=== PATIENT | female | born 1960 | race Caucasian/White ===

== ENCOUNTER 2017-03-03 12:41 | Emergency (ER) | payer MEDICARE, MEDICAID ==
--- NOTE | 2017-03-03 13:15 | EDM.PDOC ---
ED HPI Behavioral Health - General Chief Complaint: Behavioral/Psych Stated Complaint: mental health eval Time Seen by Provider: 03/03/17 12:55 Source of Information: Reports: Patient, Police Exam Limitations: Reports: No limitations - History of Present Illness INITIAL COMMENTS - FREE TEXT/NARRATIVE: Patient presents via the police department for mental health evaluation. The police were called to the patient's residence. The patient reported to dispatch that there was a "black kid" in her couch. She had a gun to protect her self. When police arrived she did have a gun on her. She was tearing apart her couch looking for the perpetrator. Patient was disarmed and brought the ER for mental health evaluation. [place] police department to filled out the emergency dention paperwork. Upon my interview the patient is actively hallucinating ER. She states there is a mouse in the trash. She also reports that she has been having bugs crawling in her skin. She states that she's been using name an exacto-blade to extract the bugs. She states it does not hurt crooks there are bugs that have damaged the nerves underneath. She reports that these wounds have been present for years. Patient reports that she had hallucinations last night of cartoons on the king. The patient states that she has been taking her medications. She sees Dr. hammond of [facility]. Last visit was about a month and a half ago. Patient denies any suicidal or homicidal ideation or plan. Patient denies any medical concerns. She states that she is having pain to the right shoulder from being "jerked around" by the police. - Related Data Allergies Allergy/AdvReac Type Severity Reaction Status Date / Time acetaminophen [From Tylenol] Allergy Itching Verified 03/03/17 12:50 adhesive Allergy Rash Verified 03/03/17 12:50 buprenorphine Allergy Itching Verified 03/03/17 12:50 codeine Allergy Itching Verified 03/03/17 12:50 diclofenac Allergy Itching Verified 03/03/17 12:50 latex Allergy Itching Verified 03/03/17 12:50 meloxicam [From Mobic] Allergy Rash Verified 03/03/17 12:50 morphine Allergy Hives Verified 03/03/17 12:50 nabumetone [From Relafen] Allergy Hives Verified 03/03/17 12:50 oxycodone Allergy Itching Verified 03/03/17 12:50 ibuprofen AdvReac Stomach Verified 08/30/15 14:48 Upset Home Medications: Home Meds Levothyroxine 75 mcg PO DAILY 09/29/14 [History] Minocycline [Minocin] 100 mg PO BID 09/29/14 [History] Omeprazole 20 mg PO BID 09/29/14 [History] Venlafaxine [Effexor] 150 mg PO DAILY 02/16/15 [History] Acyclovir 400 mg PO BID 04/15/15 [History] ClonazePAM [KlonoPIN] 2 mg PO BEDTIME 09/19/15 [History] Fluticasone Propionate [Flonase Allergy Relief] 1 spray NASBOTH BID 09/19/15 [ History] Lisinopril/Hydrochlorothiazide [Lisinopril-Hctz 20-12.5 mg Tab] 1 tab PO DAILY 09/19/15 [History] cloNIDine [Catapres] 0.1 mg PO BEDTIME 09/19/15 [History] hydrOXYzine Pamoate [Hydroxyzine Pamoate] 150 mg PO BEDTIME 09/19/15 [History] traZODone 50 - 200 mg PO BEDTIME PRN 09/19/15 [History] Benztropine [Cogentin] 2 mg PO BEDTIME tablet 10/09/15 [Rx] Cyclobenzaprine [Flexeril] 10 mg PO Q8HR PRN #0 tablet 10/09/15 [Rx] Docusate Sodium [Colace] 100 mg PO BID PRN #0 cap 10/09/15 [Rx] Enoxaparin [Lovenox] 40 mg SUBCUT DAILY 30 Days 10/09/15 [Rx] QUEtiapine [SEROquel] 300 mg PO BEDTIME #30 tablet 10/09/15 [Rx] HYDROmorphone HCl [Dilaudid] 1 mg PO Q4H PRN 11/16/15 [History] Mag Hydrox/Al Hydrox/Simeth [Mi Acid Suspension] 15 ml PO DAILY PRN 11/16/15 [ History] Ondansetron [Zofran] 8 mg PO Q8H 11/16/15 [History] hydrOXYzine Pamoate [Vistaril] 25 mg PO DAILY PRN 11/16/15 [History] traZODone 50 mg PO BEDTIME PRN 11/16/15 [History] Right Arm Pain Score (Numeric/FACES): 9 Past Medical History HEENT History: Reports: Impaired vision, Other (see below) Other HEENT History: LEFT EAR HEARING LOSS Cardiovascular History: Reports: Hypertension Other Cardiovascular History: HX OF HYPOTENSION, SINUS BRADYCARDIA Gastrointestinal History: Reports: Chronic constipation, Other (see below) Other Gastrointestinal History: HX OF GASTRIC ULCER, Elevated LFT's and hx polysubstance abuse, PUD Genitourinary History: Reports: Other (see below) Other Genitourinary History: HX OF IMPAIRED RENAL FUNCTION Other OB/BYN History: DENIES HX OF . PT REPORTS SHE IS PERIMENOPAUSAL, SAID SHE HAD GONE 3 MONTHS WITHOUT PERIOD THEN NOW HAS IT. Musculoskeletal History: Reports: Other (see below) Other Musculoskeletal History: CURRENT R WRIST FX, chronic neck pain, femur fracture Neurological History: Reports: Other (see below) Other Neuro History: NECK PAIN, SYNCOPE Psychiatric History: Reports: Addiction, Anxiety, Depression, Hallucinations, Psych Hospitalization(s) Other Psychiatric History: HX OF PERSONALITY DISORDER, HALLUCINATIONS (RECENTLY PSYCH COMMITED DUE TO HALLUCINATIONS AND SELF INFLICTED VIOLENCE - BRUISES, CUTS. SEE PAPERWORK IN [facility] 04/2015 AND PRIOR TO THAT THIS YEAR WAS IN [facility] FOR SUICIDAL IDEATION.) Endocrine/Metabolic History: Reports: Other (see below) Other Endocrine/Metabolic History: HYPOTHYROIDISM Hematologic History: Reports: Anemia, Iron deficiency, Other (see below) Other Hematologic History: Factor IV Dermatologic History: Reports: Other (see below) Other Dermatologic History: HX OF SELF INFLICTED LACERATIONS. - Past Surgical History Musculoskeletal Surgical History: Reports: Other (see below) Other Musculoskeletal Surgeries/Procedures:: right knee replacement 2009 Social & Family History - Tobacco Use Smoking Status *Q: Unknown Ever Smoked Years of Tobacco use: 20 Used Tobacco, but Quit: No Second Hand Smoke Exposure: No - Caffeine Use Caffeine Use: Reports: None - Alcohol Use Days Per Week of Alcohol Use: 5 (chronic alcoholism) Number of Drinks Per Day: 3 Total Drinks Per Week: 15 - Recreational Drug Use Recreational Drug Use: No Drug Use in Last 12 Months: No Recreational Drug Use Frequency: Patient Refuses To Answer - Living Situation & Occupation Living situation: Reports: with family, single 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 Denies: Nausea, Vomiting : Reports: incontinence. Denies: dysuria Musculoskeletal: Reports: back pain (chronic) ED EXAM, BEHAVIORAL HEALTH - Physical Exam Exam: See Below Exam Limited By: No limitations General Appearance: alert, WD/WN, no apparent distress Ears: normal external exam Nose: normal inspection Throat/Mouth: Normal inspection, Normal voice, No airway compromise Neck: normal inspection, supple, non-tender, full range of motion Respiratory/Chest: no respiratory distress, lungs clear, normal breath sounds Cardiovascular: normal peripheral pulses, regular rate, rhythm, no murmur GI/Abdominal: soft, non tender Extremities: normal inspection, normal range of motion, other (tenderness to the right anterior proximal humerus and right trapezius muscle) Neurological: alert Psychiatric: alert, flat affect, visual hallucinations, paranoid thoughts. No: homicidal thoughts, suicidal plan, suicidal thoughts Skin Exam: Warm, Dry, Pallor, Signs of self injury (approximately [id number] wound to the right medial lower leg; approximately [id number] superficial wound to the right medial lower leg; approximately 1.5cm in diameter superficial wound to the left anterio abdomen; approximaltely [id number] wound to the left forearm; 2 superficial, healed wounds approximaltely 2cm in legth to the left forearm) EKG INTERPRETATION EKG Date: 03/03/17 Time: 17:10 Rhythm: NSR Rate (beats/min): 43 [place]: normal P-wave: present QRS: normal ST-T: normal QT: normal EKG Interpretation Comments: sinus bradycardia at [address] segment changes. REviewed by myself and Dr. Worthington. COURSE, BEHAVIORAL HEALTH COMP - Course Vital Signs: Last Vital Signs Temp 35.9 C 03/03/17 12:45 Pulse 46 L 03/03/17 17:35 Resp 16 03/03/17 17:35 BP 107/57 L 03/03/17 17:35 Pulse Ox 99 03/03/17 17:35 Orders, Labs, Meds: Active Orders 24 hr Category Date Time Status EKG 12 Lead [EKG Documentation Completion] [RC] STAT Care 03/03/17 17:01 Active Peripheral IV Care [RC] . DIRECTED Care 03/03/17 15:08 Active Humerus Rt [CR] Stat Exams 03/03/17 14:08 Taken CULTURE ANAEROBIC + SMEAR [RM] Stat Lab 03/03/17 15:10 Received CULTURE URINE [RM] Stat Lab 03/03/17 16:36 Received Sodium Chloride 0.9% [Normal Saline] 500 ml Med 03/03/17 17:29 Active IV .BOLUS Sodium Chloride 0.9% [Saline Flush] Med 03/03/17 15:08 Active 10 ml FLUSH ASDIRECTED PRN Peripheral IV Insertion Adult [OM.PC] Routine Oth 03/03/17 15:07 Ordered Medication Orders Sodium Chloride (Normal Saline) 500 mls @ 999 mls/hr IV .BOLUS ONE Stop: 03/03/17 17:59 Last Admin: 03/03/17 17:25 Dose: 999 mls/hr Sodium Chloride (Saline Flush) 10 ml FLUSH ASDIRECTED PRN PRN Reason: Keep Vein Open Last Admin: 03/03/17 15:47 Dose: 10 ml Laboratory Tests 03/03/17 03/03/17 03/03/17 Range/Units 13:23 13:23 16:10 WBC 11.71 H (3.98-10.04) K/mm3 RBC 3.57 L (3.98-5.22) M/mm3 Hgb 10.5 L (11.2-15.7) gm/L Hct 31.4 L (34.1-44.9) % MCV 88.0 (79.4-94.8) fl MCH 29.4 (25.6-32.2) pg MCHC 33.4 (32.2-35.5) g/dl RDW Std Deviation 49.2 H (36.4-46.3) fL Plt Count 260 (182-369) K/mm3 MPV 10.7 (9.4-12.3) fl Neut % (Auto) 68.3 (34.0-71.1) % Lymph % (Auto) 15.4 L (19.3-51.7) % [place] % (Auto) 13.1 H (4.7-12.5) % Eos % (Auto) 2.5 (0.7-5.8) Baso % (Auto) 0.5 (0.1-1.2) % Neut # (Auto) 8.01 H (1.56-6.13) K/mm3 Lymph # (Auto) 1.80 (1.18-3.74) K/mm3 [place] # (Auto) 1.53 H (0.24-0.36) K/mm3 Eos # (Auto) 0.29 (0.04-0.36) K/mm3 Baso # (Auto) 0.06 (0.01-0.08) K/mm3 Manual Slide Review Abnormal smear Sodium 137 (136-145) mEq/L Potassium 3.5 (3.5-5.1) mEq/L Chloride 104 (98-107) mEq/L Carbon Dioxide 22 (21-32) mEq/L Anion Gap 14.5 (5-15) BUN 10 (7-18) mg/dL Creatinine 1.2 H (0.55-1.02) mg/dL Est Cr Clr Drug Dosing 42.39 mL/min Estimated GFR (MDRD) 47 (>60) mL/min BUN/Creatinine Ratio 8.3 L (14-18) Glucose 99 (74-106) mg/dL Calcium 8.7 (8.5-10.1) mg/dL Magnesium 1.6 L (1.8-2.4) mg/dl Total Bilirubin 0.6 (0.2-1.0) mg/dL AST 93 H (15-37) U/L ALT 48 (14-59) U/L Alkaline Phosphatase 213 H (46-116) U/L C-Reactive Protein 1.7 H* (<1.0) mg/dL Total Protein 5.4 L (6.4-8.2) g/dl Albumin 2.6 L (3.4-5.0) g/dl Globulin 2.8 gm/dL Albumin/Globulin Ratio 0.9 L (1-2) TSH 3rd Generation 3.650 (0.358-3.74) uIU/mL Urine Color (Yellow) Urine Appearance (Clear) Urine pH (5.0-8.0) Ur Specific [place] (1.005-1.030) Urine Protein (Negative) Urine Glucose (UA) (Negative) Urine Ketones (Negative) Urine Occult Blood (Negative) Urine Nitrite (Negative) Urine Bilirubin (Negative) Urine Urobilinogen (0.2-1.0) Ur Leukocyte Esterase (Negative) Urine RBC (0-5) /hpf Urine WBC (0-5) /hpf Ur Epithelial Cells Ur Squamous Epith Cells (0-5) /hpf Ur Transition Epith Cell (0-5) Urine Bacteria (FEW) /hpf Hyaline Casts (0-5) /lpf Urine Mucus (FEW) /hpf Urine Opiates Screen Presumptive positive H (NEGATIVE) Ur Buprenorphine Scrn Negative (NEGATIVE) Ur Oxycodone Screen Negative (NEGATIVE) Urine Methadone Screen Negative (NEGATIVE) Ur Propoxyphene Screen Negative (NEGATIVE) Ur Barbiturates Screen Negative (NEGATIVE) Ur Tricyclics Screen Negative (NEGATIVE) Ur Phencyclidine Scrn Negative (NEGATIVE) Ur Amphetamine Screen Negative (NEGATIVE) U Methamphetamines Scrn Negative (NEGATIVE) U Benzodiazepines Scrn Negative (NEGATIVE) U Cocaine Metab Screen Negative (NEGATIVE) U Marijuana (THC) Screen Negative (NEGATIVE) Ethyl Alcohol 0.00 (0.00) gm% 03/03/17 Range/Units 16:10 WBC (3.98-10.04) K/mm3 RBC (3.98-5.22) M/mm3 Hgb (11.2-15.7) gm/L Hct (34.1-44.9) % MCV (79.4-94.8) fl MCH (25.6-32.2) pg MCHC (32.2-35.5) g/dl RDW Std Deviation (36.4-46.3) fL Plt Count (182-369) K/mm3 MPV (9.4-12.3) fl Neut % (Auto) (34.0-71.1) % Lymph % (Auto) (19.3-51.7) % [place] % (Auto) (4.7-12.5) % Eos % (Auto) (0.7-5.8) Baso % (Auto) (0.1-1.2) % Neut # (Auto) (1.56-6.13) K/mm3 Lymph # (Auto) (1.18-3.74) K/mm3 [place] # (Auto) (0.24-0.36) K/mm3 Eos # (Auto) (0.04-0.36) K/mm3 Baso # (Auto) (0.01-0.08) K/mm3 Manual Slide Review Sodium (136-145) mEq/L Potassium (3.5-5.1) mEq/L Chloride (98-107) mEq/L Carbon Dioxide (21-32) mEq/L Anion Gap (5-15) BUN (7-18) mg/dL Creatinine (0.55-1.02) mg/dL Est Cr Clr Drug Dosing mL/min Estimated GFR (MDRD) (>60) mL/min BUN/Creatinine Ratio (14-18) Glucose (74-106) mg/dL Calcium (8.5-10.1) mg/dL Magnesium (1.8-2.4) mg/dl Total Bilirubin (0.2-1.0) mg/dL AST (15-37) U/L ALT (14-59) U/L Alkaline Phosphatase (46-116) U/L C-Reactive Protein (<1.0) mg/dL Total Protein (6.4-8.2) g/dl Albumin (3.4-5.0) g/dl Globulin gm/dL Albumin/Globulin Ratio (1-2) TSH 3rd Generation (0.358-3.74) uIU/mL Urine Color Yellow (Yellow) Urine Appearance Clear (Clear) Urine pH 6.0 (5.0-8.0) Ur Specific [place] 1.020 (1.005-1.030) Urine Protein Trace H (Negative) Urine Glucose (UA) Negative (Negative) Urine Ketones 1+ H (Negative) Urine Occult Blood Negative (Negative) Urine Nitrite Negative (Negative) Urine Bilirubin 1+ H (Negative) Urine Urobilinogen 0.2 (0.2-1.0) Ur Leukocyte Esterase Negative (Negative) Urine RBC 0-5 (0-5) /hpf Urine WBC 0-5 (0-5) /hpf Ur Epithelial Cells Not Reportable Ur Squamous Epith Cells 0-5 (0-5) /hpf Ur Transition Epith Cell 0-5 (0-5) Urine Bacteria Moderate H (FEW) /hpf Hyaline Casts 0-5 (0-5) /lpf Urine Mucus Moderate H (FEW) /hpf Urine Opiates Screen (NEGATIVE) Ur Buprenorphine Scrn (NEGATIVE) Ur Oxycodone Screen (NEGATIVE) Urine Methadone Screen (NEGATIVE) Ur Propoxyphene Screen (NEGATIVE) Ur Barbiturates Screen (NEGATIVE) Ur Tricyclics Screen (NEGATIVE) Ur Phencyclidine Scrn (NEGATIVE) Ur Amphetamine Screen (NEGATIVE) U Methamphetamines Scrn (NEGATIVE) U Benzodiazepines Scrn (NEGATIVE) U Cocaine Metab Screen (NEGATIVE) U Marijuana (THC) Screen (NEGATIVE) Ethyl Alcohol (0.00) gm% Medications Generic Name Dose Route Start Last Admin Trade Name Freq PRN Reason Stop Dose Admin Sodium Chloride 500 mls @ 999 mls/hr 03/03/17 17:29 03/03/17 17:25 Normal Saline IV 03/03/17 17:59 999 mls/hr .BOLUS ONE Administration Sodium Chloride 10 ml 03/03/17 15:08 03/03/17 15:47 Saline Flush FLUSH 10 ml ASDIRECTED PRN Administration Keep Vein Open Discontinued Medications Generic Name Dose Route Start Last Admin Trade Name Freq PRN Reason Stop Dose Admin Sodium Chloride 1,000 mls @ 999 mls/hr 03/03/17 15:08 03/03/17 15:43 Normal Saline IV 03/03/17 16:08 999 mls/hr ONETIME ONE Administration Ketorolac Tromethamine 30 mg 03/03/17 15:55 03/03/17 15:58 Toradol IVPUSH 03/03/17 15:56 30 mg ONETIME ONE Administration Magnesium Oxide 400 mg 03/03/17 15:08 03/03/17 15:58 Magnesium Oxide PO 03/03/17 15:09 400 mg ONETIME ONE Administration Re-Assessment/Re-Exam: 17:00 xray of the right humerus shows no acute fractures or dislocations. Mag was found to be slightly low at 1.6. She was give mag oxide 400mg PO. HGb is 10.5 appears to be chronic UA + for opiates. Patient is currently on hydrocodone for chronic back and shoulder pain. She was given 30mg IV toradol in the ED for pain control. 17:59 EKG shows a sinus bradycardia. Discussed with Dr. Worthington. Miranda she was still able to go to inpatient psych safely. Heart rate at 12:45 was 62 and at 17 :00 was 76. Medical Clearance: 03/03/17 17:[address] Worthington. Patient is cleared from a medical standpoint to go to inpatient psych. Discharge vs Psych Eval/Treatment:: 03/03/17 17:[address] Wyatt, psychiatry at [facility]. Agrees to accept the patient. Asked we obtain a baseline EKG, as they will likely restart her seroquel. Plan will be to transfer by [facility] department to [facility] in [place]. Departure - Departure Time of Disposition: 17:48 Disposition: DC/Tfer to Psych Hosp/Unit 65 Condition: fair Clinical Impression: Hallucinations Forms: ED Department Discharge Additional Instructions: Patient to go by [facility]'s department to [facility] in [place]. Dr. Wyatt accepting. - My Orders Last 24 Hours: My Active Orders 03/03/17 14:08 Humerus Rt [CR] Stat 03/03/17 15:07 Peripheral IV Insertion Adult [OM.PC] Routine 03/03/17 15:08 Peripheral IV Care [RC] . DIRECTED Sodium Chloride 0.9% [Saline Flush] 10 ml FLUSH ASDIRECTED PRN 03/03/17 15:10 CULTURE ANAEROBIC + SMEAR [RM] Stat 03/03/17 16:36 CULTURE URINE [RM] Stat 03/03/17 17:01 EKG 12 Lead [EKG Documentation Completion] [RC] STAT 03/03/17 17:29 Sodium Chloride 0.9% [Normal Saline] 500 ml IV .BOLUS - Assessment/Plan Last 24 Hours: My Active Orders 03/03/17 14:08 Humerus Rt [CR] Stat 03/03/17 15:07 Peripheral IV Insertion Adult [OM.PC] Routine 03/03/17 15:08 Peripheral IV Care [RC] . DIRECTED Sodium Chloride 0.9% [Saline Flush] 10 ml FLUSH ASDIRECTED PRN 03/03/17 15:10 CULTURE ANAEROBIC + SMEAR [RM] Stat 03/03/17 16:36 CULTURE URINE [RM] Stat 03/03/17 17:01 EKG 12 Lead [EKG Documentation Completion] [RC] STAT 03/03/17 17:29 Sodium Chloride 0.9% [Normal Saline] 500 ml IV .BOLUS
[2017-03-03] MEDS ORDERED: Sodium Chloride 0.9% 10 ML Syringe FLUSH PRN (15:08)
[2017-03-03] MEDS ORDERED: Magnesium Oxide 400 MG Tab PO ONE (15:08)
[2017-03-03] MEDS ORDERED: Sodium Chloride 0.9% 1,000 ML IV ONE (15:08)
[2017-03-03] MEDS ORDERED: Ketorolac 30 MG/ML SDV IVPUSH ONE (15:55)
[2017-03-03] MEDS ORDERED: Sodium Chloride 0.9% 500 ML IV ONE (17:29)
[2017-03-03 17:36] VITALS: BP 107/57
--- NOTE | 2017-03-04 06:59 | CR ---
Right humerus: Two views of the right humerus were obtained. Probable chronic rotator cuff tear is noted. Previous right shoulder surgery is seen. No acute fracture or other abnormality is appreciated. Impression: 1. Findings suspicious for chronic rotator cuff tear. 2. Previous surgery with no acute abnormality identified. Diagnostic code #2
== END 2017-03-03 18:10 ==
LOC: JD.ED 12:41
DX: R44.1 Visual hallucinations (principal); E83.42 Hypomagnesemia; G89.29 Other chronic pain; M54.9 Dorsalgia, unspecified; M25.519 Pain in unspecified shoulder; E03.9 Hypothyroidism, unspecified; D50.9 Iron deficiency anemia, unspecified; D68.51 Activated protein C resistance; F32.9 Major depressive disorder, single episode, unspecified; F41.9 Anxiety disorder, unspecified; M54.2 Cervicalgia; H91.92 Unspecified hearing loss, left ear; I10 Essential (primary) hypertension; K59.00 Constipation, unspecified; Z79.899 Other long term (current) drug therapy; Z88.8 Allergy status to other drugs, medicaments and biological substances; Z91.048 Other nonmedicinal substance allergy status
CPT/HCPCS: 36415; 73060; 80053; 80306; 81001; 83735; 84443; 85025; 86140; 87075; 87086; 87205; 93005; 96361; 96374; 99285; A9270; G0480; J1885; J7040; J7050; 87088; 87186; 99284

== ENCOUNTER 2017-03-28 07:22 | Inpatient (IN) | payer MEDICARE, MEDICAID ==
[2017-03-28] MEDS ORDERED: HYDROmorphone 0.5 MG/0.5 ML Syringe IVPUSH ONE ×2 (07:51→08:59)
[2017-03-28] MEDS ORDERED: Sodium Chloride 0.9% 10 ML Syringe FLUSH PRN (07:52)
[2017-03-28] MEDS ORDERED: Sodium Chloride 0.9% 500 ML IV ONE (07:52)
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
[2017-03-28] MEDS ORDERED: hydrOXYzine HCl 25 MG Tab PO PRN ×2 (13:21→18:48)
[2017-03-28] MEDS: Ondansetron 4 MG Tab.DIS PO SCH ×2 (14:18→20:41)
[2017-03-28] MEDS ORDERED: Venlafaxine 37.5 MG Tab PO SCH (15:00)
[2017-03-28] MEDS: Lidocaine 5% 700 MG Patch TOP SCH (16:38)
[2017-03-28] MEDS: Pantoprazole 40 MG Tab.CR PO SCH (16:39)
[2017-03-28] MEDS ORDERED: LORazepam 2 MG/ML MDV IVPUSH ONE (17:23)
[2017-03-28] MEDS: Losartan 25 MG Tab PO SCH (20:08)
[2017-03-28] MEDS: Benztropine 1 MG Tab PO SCH (20:15)
[2017-03-28] MEDS: Venlafaxine 75 MG Cap.ER PO SCH (20:15)
[2017-03-28] MEDS: Diazepam 5 MG Tab PO SCH (20:16)
[2017-03-28] MEDS: Mirtazapine 15 MG Tab PO SCH (20:16)
[2017-03-28] MEDS: Acyclovir 200 MG Cap PO SCH (20:21)
[2017-03-28] MEDS: Acetaminophen/HYDROcodone 325-10 MG Tab PO PRN (20:47)
[2017-03-28] MEDS ORDERED: MINOCYCLINE 100 MG PO SCH (21:00)
[2017-03-28] MEDS ORDERED: hydrOXYzine HCl 50 MG Tab PO SCH ×2 (21:00)
[2017-03-28] MEDS ORDERED: ClonazePAM 1 MG Tab PO SCH (21:00)
[2017-03-28] MEDS ORDERED: cloNIDine 0.1 MG Tab PO SCH (21:00)
[2017-03-28] MEDS: LOXAPINE 10 MG PO SCH (21:00)
[2017-03-28] MEDS ORDERED: LOXAPINE 50 MG PO SCH (21:00)
[2017-03-29] MEDS: Ondansetron 4 MG Tab.DIS PO SCH ×3 (04:57→22:59)
[2017-03-29] MEDS: Acetaminophen/HYDROcodone 325-10 MG Tab PO PRN ×3 (04:59→19:01)
[2017-03-29] MEDS: Levothyroxine 88 MCG Tab PO SCH (05:00)
[2017-03-29] MEDS: Pantoprazole 40 MG Tab.CR PO SCH ×2 (05:00→16:45)
[2017-03-29] MEDS: Propranolol 60 MG Cap.ER PO SCH (08:43)
[2017-03-29] MEDS: Mirtazapine 15 MG Tab PO SCH ×3 (08:44→22:59)
[2017-03-29] MEDS: Acyclovir 200 MG Cap PO SCH ×2 (08:44→22:59)
[2017-03-29] MEDS: Diazepam 5 MG Tab PO SCH ×3 (08:44→22:59)
[2017-03-29] MEDS ORDERED: Lisinopril 20 MG Tab PO SCH (09:00)
[2017-03-29] MEDS ORDERED: Hydrochlorothiazide 12.5 MG Cap PO SCH (09:00)
[2017-03-29] MEDS ORDERED: Venlafaxine 75 MG Cap.ER PO SCH (09:00)
[2017-03-29] MEDS ORDERED: Levothyroxine 75 MCG Tab PO SCH (09:00)
[2017-03-29] MEDS ORDERED: LOXAPINE 10 MG PO SCH (09:15)
[2017-03-29] MEDS ORDERED: Diazepam 5 MG Tab PO SCH (09:15)
[2017-03-29] MEDS: hydrOXYzine HCl 25 MG Tab PO PRN (10:58)
[2017-03-29] MEDS: LOXAPINE 10 MG PO SCH ×2 (10:59→23:07)
--- NOTE | 2017-03-29 16:41 | PCM.PN ---
- General Info Date of Service: 03/29/17 Functional Status: Reports: pain controlled (no, has RUE pain and leg pain), ambulating - Review of Systems General: Reports: No Symptoms HEENT: Reports: no symptoms Pulmonary: Reports: no symptoms Cardiovascular: Reports: No Symptoms Gastrointestinal: Reports: No symptoms Genitourinary: Reports: no symptoms Musculoskeletal: Reports: no symptoms Skin: Reports: no symptoms Neurological: Reports: No Symptoms Psychiatric: Reports: no symptoms - Patient Data Vitals - most recent: Last Vital Signs Temp 36.2 C 03/29/17 15:56 Pulse 72 03/29/17 15:56 Resp 16 03/29/17 15:56 BP 158/89 H 03/29/17 15:56 Pulse Ox 100 03/29/17 15:56 Weight - most recent: 75.296 kg I&O - last 24 hours: Intake & Output 03/29/17 03/29/17 03/29/17 06:59 14:59 22:59 Intake Total 550 360 Output Total 950 600 Balance -400 -240 Lab Results last 24 hrs: Laboratory Results - last 24 hr 03/28/17 03/29/17 Range/Units 15:45 04:40 Sodium 144 (136-145) mEq/L Potassium 3.9 (3.5-5.1) mEq/L Chloride 111 H (98-107) mEq/L Carbon Dioxide 24 (21-32) mEq/L Anion Gap 12.9 (5-15) BUN 14 (7-18) mg/dL Creatinine 0.9 (0.55-1.02) mg/dL Est Cr Clr Drug Dosing 55.86 mL/min Estimated GFR (MDRD) > 60 (>60) mL/min BUN/Creatinine Ratio 15.6 (14-18) Glucose 92 (74-106) mg/dL Calcium 8.4 L (8.5-10.1) mg/dL MRSA (PCR) Negative Med Orders - Current: Current Medications Hydrocodone Bitart/Acetaminophen ([place] 325-10 Mg) 1 tab PO Q6H PRN PRN Reason: Pain Last Admin: 03/29/17 10:59 Dose: 1 tab Acyclovir (Zovirax) 400 mg PO BID [facility] Last Admin: 03/29/17 08:44 Dose: 400 mg Benztropine Mesylate (Cogentin) 2 mg PO BEDTIME [facility] Last Admin: 03/28/17 20:15 Dose: 2 mg Diazepam (Valium.) 20 mg PO BEDTIME [facility] Last Admin: 03/28/17 20:16 Dose: 20 mg Diazepam (Valium.) 5 mg PO BID@0900,1500 [facility] Last Admin: 03/29/17 14:52 Dose: 5 mg Hydroxyzine HCl (Atarax) 25 mg PO Q6H PRN PRN Reason: Itching Last Admin: 03/29/17 10:58 Dose: 25 mg Levothyroxine Sodium (Synthroid) 88 mcg PO ACBREAKFAST [facility] Last Admin: 03/29/17 05:00 Dose: 88 mcg Lidocaine (Lidoderm 5%) 700 mg TOP Q24H [facility] Last Admin: 03/28/17 16:38 Dose: 700 mg Losartan Potassium (Cozaar) 50 mg PO QPM [facility] Last Admin: 03/28/17 20:08 Dose: 50 mg Mirtazapine (Remeron) 15 mg PO TID [facility] Last Admin: 03/29/17 14:52 Dose: 15 mg Miscellaneous Information (Remove Patch) 1 ea TRDERM Q24H [facility] Last Admin: 03/29/17 04:57 Dose: 1 ea Non-Formulary Medication (Loxapine) 10 mg PO BID [facility] Last Admin: 03/29/17 10:59 Dose: Not Given Ondansetron HCl (Zofran Odt) 8 mg PO Q8H [facility] Last Admin: 03/29/17 13:17 Dose: 8 mg Pantoprazole Sodium (Protonix) 40 mg PO BIDAC [facility] Last Admin: 03/29/17 05:00 Dose: 40 mg Propranolol HCl (Inderal La) 60 mg PO QAM [facility] Last Admin: 03/29/17 08:43 Dose: 60 mg Sodium Chloride (Saline Flush) 10 ml FLUSH ASDIRECTED PRN PRN Reason: Keep Vein Open Last Admin: 03/28/17 08:20 Dose: 10 ml Venlafaxine HCl (Effexor Xr) 150 mg PO DAILY [facility] Last Admin: 03/29/17 08:43 Dose: 150 mg Venlafaxine HCl (Effexor Xr) 75 mg PO QPM [facility] Last Admin: 03/28/17 20:15 Dose: 75 mg Discontinued Medications Clonazepam (Klonopin) 2 mg PO BEDTIME [facility] Clonidine HCl (Catapres) 0.1 mg PO BEDTIME [facility] Diazepam (Valium.) 5 mg PO 0915 [facility] Hydrochlorothiazide (Hydrochlorothiazide) 12.5 mg PO DAILY [facility] Hydromorphone HCl (Dilaudid) 0.5 mg IVPUSH ONETIME ONE Stop: 03/28/17 07:52 Last Admin: 03/28/17 08:28 Dose: 0.5 mg Hydromorphone HCl (Dilaudid) 0.5 mg IVPUSH ONETIME ONE Stop: 03/28/17 09:00 Last Admin: 03/28/17 09:09 Dose: 0.5 mg Hydroxyzine HCl (Atarax) 25 mg PO DAILY PRN PRN Reason: Anxiety Hydroxyzine HCl (Atarax) 150 mg PO BEDTIME [facility] Hydroxyzine HCl (Atarax) 100 mg PO BEDTIME [facility] Hydroxyzine HCl (Atarax) 25 mg PO Q6H PRN PRN Reason: Itching Sodium Chloride (Normal Saline) 500 mls @ 999 mls/hr IV .BOLUS ONE Stop: 03/28/17 08:22 Last Admin: 03/28/17 08:29 Dose: 999 mls/hr Levothyroxine Sodium (Levothyroxine) 75 mcg PO DAILY [facility] Lisinopril (Prinivil) 20 mg PO DAILY [facility] Lorazepam (Ativan) 2 mg IVPUSH ONETIME ONE Stop: 03/28/17 17:24 Last Admin: 03/28/17 17:33 Dose: 2 mg Non-Formulary Medication (Minocycline) 100 mg PO BID [facility] Non-Formulary Medication (Loxapine) 50 mg PO BEDTIME [facility] Non-Formulary Medication (Loxapine) 10 mg PO 0915 [facility] Venlafaxine HCl (Effexor) 75 mg PO TID [facility] Last Admin: 03/28/17 14:18 Dose: 75 mg - Exam Quality Assessment: DVT prophylaxis General: alert, oriented, no acute distress HEENT: Pupils equal, Pupils reactive, EOMI Neck: supple, trachea midline Lungs: Normal respiratory effort Cardiovascular: Regular Rate Abdomen: bowel sounds present, soft, no tenderness, no distension (Female) Exam: Deferred Back Exam: normal inspection Extremities: normal pulses Skin: warm Neurological: no new focal deficit Psy/Mental Status: alert, anxious, depressed - Problem List & Annotations (1) Difficulty walking SNOMED Code(s): 253811926 Code(s): R26.2 - DIFFICULTY IN WALKING, NOT ELSEWHERE CLASSIFIED Status: Acute Current Visit: Yes (2) Low back pain SNOMED Code(s): 134243355 Code(s): M54.5 - LOW BACK PAIN Status: Acute Current Visit: Yes Qualifiers: Chronicity: acute Back pain laterality: bilateral Sciatica presence: without sciatica Qualified Code(s): M54.5 - Low back pain (3) Closed head injury without concussion SNOMED Code(s): 06452898 Code(s): S09.90XA - UNSPECIFIED INJURY OF HEAD, INITIAL ENCOUNTER Status: Acute Current Visit: No Qualifiers: Encounter type: initial encounter Qualified Code(s): S09.90XA - Unspecified injury of head, initial encounter - Problem List Review Problem List Initiated/Reviewed/Updated: Yes - My Orders Last 24 Hours: My Active Orders 03/28/17 16:00 Pantoprazole [ProTONIX] 40 mg PO BIDAC 03/28/17 17:00 Lidocaine 5% [Lidoderm 5%] 700 mg TOP Q24H 03/28/17 18:48 hydrOXYzine HCl [Atarax] 25 mg PO Q6H PRN 03/28/17 18:51 Notify Provider Consults [RC] ASDIRECTED 03/28/17 18:58 Acetaminophen/HYDROcodone [[place] 325-10 MG] 1 tab PO Q6H PRN 03/28/17 19:00 Losartan [Cozaar] 50 mg PO QPM Venlafaxine [Effexor XR] 75 mg PO QPM 03/28/17 21:00 Acyclovir [Zovirax] 400 mg PO BID Benztropine [Cogentin] 2 mg PO BEDTIME Diazepam [Valium] 20 mg PO BEDTIME Loxapine 10 mg PO BID Mirtazapine [Remeron] 15 mg PO TID 03/28/17 Dinner Heart Healthy Diet [DIET] 03/29/17 05:00 Remove Patch 1 ea TRDERM Q24H 03/29/17 06:00 Levothyroxine [Synthroid] 88 mcg PO ACBREAKFAST 03/29/17 08:00 Propranolol [Inderal LA] 60 mg PO QAM 03/29/17 09:00 Diazepam [Valium] 5 mg PO BID@0900,1500 Venlafaxine [Effexor XR] 150 mg PO DAILY 03/30/17 05:00 BMP [BASIC METABOLIC PANEL,BMP] [CHEM] DAILY CBC WITH AUTO DIFF [HEME] DAILY 03/30/17 08:00 EKG 12 Lead [EKG Documentation Completion] [RC] ROUTINE Consult to Cd Reactor Operator Head [CONS] Routine 03/30/17 09:00 Consult to Occupational Therapy [OT Evaluation and Treatment] [CONS] Routine Consult to Physical Therapy [PT Evaluation and Treatment] [CONS] Routine Consult to Physician [CONS] Routine 03/31/17 05:00 BMP [BASIC METABOLIC PANEL,BMP] [CHEM] DAILY CBC WITH AUTO DIFF [HEME] DAILY 04/01/17 05:00 BMP [BASIC METABOLIC PANEL,BMP] [CHEM] DAILY CBC WITH AUTO DIFF [HEME] DAILY 04/02/17 05:00 CBC WITH AUTO DIFF [HEME] DAILY - Plan Plan:: Impression: SNF placement unable to take care of herself Chronic lower back pain Right UE pain RLE pain Multiple drug "allergies" Chronic History of DVT PUD CKD Anxiety Depression Personalty Disorder Hypothyroidism Plan: Continue home meds Discuss right shoulder with ortho Continue heating pad Daily Labs Consult PT/OT/SW DVT/GI prophylaxis
[2017-03-29] MEDS: Lidocaine 5% 700 MG Patch TOP SCH (16:45)
[2017-03-29] MEDS: Venlafaxine 75 MG Cap.ER PO SCH (18:07)
[2017-03-29] MEDS: Losartan 25 MG Tab PO SCH (18:07)
[2017-03-29] MEDS: Benztropine 1 MG Tab PO SCH (22:59)
[2017-03-30] MEDS: Acetaminophen/HYDROcodone 325-10 MG Tab PO PRN ×4 (02:20→20:33)
[2017-03-30] MEDS: Levothyroxine 88 MCG Tab PO SCH (06:04)
[2017-03-30] MEDS: Ondansetron 4 MG Tab.DIS PO SCH ×3 (06:04→20:33)
[2017-03-30] MEDS: Pantoprazole 40 MG Tab.CR PO SCH ×2 (06:04→15:10)
[2017-03-30] MEDS: Venlafaxine 75 MG Cap.ER PO SCH (08:47)
[2017-03-30] MEDS: Acyclovir 200 MG Cap PO SCH ×2 (08:48→20:33)
[2017-03-30] MEDS: Diazepam 5 MG Tab PO SCH ×3 (08:49→20:32)
[2017-03-30] MEDS: Benztropine 1 MG Tab PO SCH ×2 (08:49→20:31)
[2017-03-30] MEDS: Propranolol 60 MG Cap.ER PO SCH (08:49)
[2017-03-30] MEDS: LOXAPINE 10 MG PO SCH ×2 (08:51→20:32)
--- NOTE | 2017-03-30 09:07 | PCM.PN ---
- General Info Date of Service: 03/30/17 Functional Status: Reports: pain controlled, tolerating diet, ambulating, urinating - Review of Systems General: Reports: No Symptoms HEENT: Reports: no symptoms Pulmonary: Reports: no symptoms Cardiovascular: Reports: No Symptoms Gastrointestinal: Reports: No symptoms Genitourinary: Reports: no symptoms Musculoskeletal: Reports: shoulder pain (right), leg pain (right) Skin: Reports: no symptoms Neurological: Reports: No Symptoms Psychiatric: Reports: no symptoms - Patient Data Vitals - most recent: Last Vital Signs Temp 36.4 C 03/30/17 08:01 Pulse 66 03/30/17 08:01 Resp 16 03/30/17 08:01 BP 139/70 03/30/17 04:15 Pulse Ox 100 03/30/17 08:01 Weight - most recent: 74.389 kg I&O - last 24 hours: Intake & Output 03/29/17 03/30/17 03/30/17 22:59 06:59 14:59 Intake Total 720 400 Output Total 200 Balance 720 200 Lab Results last 24 hrs: Laboratory Results - last 24 hr 03/30/17 03/30/17 Range/Units 04:05 04:25 WBC 9.24 (3.98-10.04) K/mm3 RBC 4.03 (3.98-5.22) M/mm3 Hgb 12.2 (11.2-15.7) gm/L Hct 37.6 (34.1-44.9) % MCV 93.3 (79.4-94.8) fl MCH 30.3 (25.6-32.2) pg MCHC 32.4 (32.2-35.5) g/dl RDW Std Deviation 54.0 H (36.4-46.3) fL Plt Count 340 (182-369) K/mm3 MPV 9.9 (9.4-12.3) fl Neut % (Auto) 52.0 (34.0-71.1) % Lymph % (Auto) 31.1 (19.3-51.7) % [place] % (Auto) 14.3 H (4.7-12.5) % Eos % (Auto) 1.5 (0.7-5.8) Baso % (Auto) 0.5 (0.1-1.2) % Neut # (Auto) 4.80 (1.56-6.13) K/mm3 Lymph # (Auto) 2.87 (1.18-3.74) K/mm3 [place] # (Auto) 1.32 H (0.24-0.36) K/mm3 Eos # (Auto) 0.14 (0.04-0.36) K/mm3 Baso # (Auto) 0.05 (0.01-0.08) K/mm3 Sodium 144 (136-145) mEq/L Potassium 4.1 (3.5-5.1) mEq/L Chloride 108 H (98-107) mEq/L Carbon Dioxide 28 (21-32) mEq/L Anion Gap 12.1 (5-15) BUN 16 (7-18) mg/dL Creatinine 1.0 (0.55-1.02) mg/dL Est Cr Clr Drug Dosing 50.27 mL/min Estimated GFR (MDRD) 58 (>60) mL/min BUN/Creatinine Ratio 16.0 (14-18) Glucose 98 (74-106) mg/dL Calcium 9.0 (8.5-10.1) mg/dL Med Orders - Current: Current Medications Hydrocodone Bitart/Acetaminophen ([place] 325-10 Mg) 1 tab PO Q6H PRN PRN Reason: Pain Last Admin: 03/30/17 08:47 Dose: 1 tab Acyclovir (Zovirax) 400 mg PO BID [facility] Last Admin: 03/30/17 08:48 Dose: 400 mg Benztropine Mesylate (Cogentin) 2 mg PO BEDTIME [facility] Last Admin: 03/29/17 22:59 Dose: 2 mg Benztropine Mesylate (Cogentin) 1 mg PO DAILY [facility] Last Admin: 03/30/17 08:49 Dose: 1 mg Diazepam (Valium.) 20 mg PO BEDTIME [facility] Last Admin: 03/29/17 22:59 Dose: 20 mg Diazepam (Valium.) 5 mg PO BID@0900,1500 [facility] Last Admin: 03/30/17 08:49 Dose: 5 mg Hydroxyzine HCl (Atarax) 25 mg PO Q6H PRN PRN Reason: Itching Last Admin: 03/29/17 10:58 Dose: 25 mg Levothyroxine Sodium (Synthroid) 88 mcg PO ACBREAKFAST [facility] Last Admin: 03/30/17 06:04 Dose: 88 mcg Lidocaine (Lidoderm 5%) 700 mg TOP Q24H [facility] Last Admin: 03/29/17 16:45 Dose: Not Given Losartan Potassium (Cozaar) 50 mg PO QPM [facility] Last Admin: 03/29/17 18:07 Dose: 50 mg Mirtazapine (Remeron) 45 mg PO BEDTIME [facility] Miscellaneous Information (Remove Patch) 1 ea TRDERM Q24H [facility] Last Admin: 03/30/17 06:21 Dose: Not Given Non-Formulary Medication (Loxapine) 10 mg PO BID [facility] Last Admin: 03/30/17 08:51 Dose: Not Given Ondansetron HCl (Zofran Odt) 8 mg PO Q8H [facility] Last Admin: 03/30/17 06:04 Dose: 8 mg Pantoprazole Sodium (Protonix) 40 mg PO BIDAC [facility] Last Admin: 03/30/17 06:04 Dose: 40 mg Propranolol HCl (Inderal La) 60 mg PO QAM [facility] Last Admin: 03/30/17 08:49 Dose: 60 mg Sodium Chloride (Saline Flush) 10 ml FLUSH ASDIRECTED PRN PRN Reason: Keep Vein Open Last Admin: 03/28/17 08:20 Dose: 10 ml Venlafaxine HCl (Effexor Xr) 225 mg PO DAILY [facility] Last Admin: 03/30/17 08:47 Dose: 225 mg Discontinued Medications Clonazepam (Klonopin) 2 mg PO BEDTIME [facility] Clonidine HCl (Catapres) 0.1 mg PO BEDTIME [facility] Diazepam (Valium.) 5 mg PO 0915 [facility] Hydrochlorothiazide (Hydrochlorothiazide) 12.5 mg PO DAILY [facility] Hydromorphone HCl (Dilaudid) 0.5 mg IVPUSH ONETIME ONE Stop: 03/28/17 07:52 Last Admin: 03/28/17 08:28 Dose: 0.5 mg Hydromorphone HCl (Dilaudid) 0.5 mg IVPUSH ONETIME ONE Stop: 03/28/17 09:00 Last Admin: 03/28/17 09:09 Dose: 0.5 mg Hydroxyzine HCl (Atarax) 25 mg PO DAILY PRN PRN Reason: Anxiety Hydroxyzine HCl (Atarax) 150 mg PO BEDTIME [facility] Hydroxyzine HCl (Atarax) 100 mg PO BEDTIME [facility] Hydroxyzine HCl (Atarax) 25 mg PO Q6H PRN PRN Reason: Itching Sodium Chloride (Normal Saline) 500 mls @ 999 mls/hr IV .BOLUS ONE Stop: 03/28/17 08:22 Last Admin: 03/28/17 08:29 Dose: 999 mls/hr Levothyroxine Sodium (Levothyroxine) 75 mcg PO DAILY [facility] Lisinopril (Prinivil) 20 mg PO DAILY [facility] Lorazepam (Ativan) 2 mg IVPUSH ONETIME ONE Stop: 03/28/17 17:24 Last Admin: 03/28/17 17:33 Dose: 2 mg Mirtazapine (Remeron) 15 mg PO TID [facility] Last Admin: 03/29/17 22:59 Dose: 15 mg Non-Formulary Medication (Minocycline) 100 mg PO BID [facility] Non-Formulary Medication (Loxapine) 50 mg PO BEDTIME [facility] Non-Formulary Medication (Loxapine) 10 mg PO 0915 [facility] Venlafaxine HCl (Effexor) 75 mg PO TID [facility] Last Admin: 03/28/17 14:18 Dose: 75 mg Venlafaxine HCl (Effexor Xr) 150 mg PO DAILY [facility] Last Admin: 03/29/17 08:43 Dose: 150 mg Venlafaxine HCl (Effexor Xr) 75 mg PO QPM [facility] Last Admin: 03/29/17 18:07 Dose: 75 mg - Exam Quality Assessment: DVT prophylaxis General: alert, oriented, cooperative, no acute distress HEENT: Pupils equal, Pupils reactive Neck: supple, trachea midline Lungs: Normal respiratory effort Cardiovascular: Regular Rate, Regular Rhythm Abdomen: bowel sounds present, soft, no tenderness, no distension (Female) Exam: Deferred Back Exam: normal inspection Extremities: normal pulses Skin: warm Neurological: no new focal deficit, normal speech Psy/Mental Status: alert, anxious - Problem List & Annotations (1) Difficulty walking SNOMED Code(s): 147521624 Code(s): R26.2 - DIFFICULTY IN WALKING, NOT ELSEWHERE CLASSIFIED Status: Acute Current Visit: Yes (2) Low back pain SNOMED Code(s): 169369439 Code(s): M54.5 - LOW BACK PAIN Status: Acute Current Visit: Yes Qualifiers: Chronicity: acute Back pain laterality: bilateral Sciatica presence: without sciatica Qualified Code(s): M54.5 - Low back pain (3) Closed head injury without concussion SNOMED Code(s): 90165149 Code(s): S09.90XA - UNSPECIFIED INJURY OF HEAD, INITIAL ENCOUNTER Status: Acute Current Visit: No Qualifiers: Encounter type: initial encounter Qualified Code(s): S09.90XA - Unspecified injury of head, initial encounter - Problem List Review Problem List Initiated/Reviewed/Updated: Yes - My Orders Last 24 Hours: My Active Orders 03/29/17 09:00 Diazepam [Valium] 5 mg PO BID@0900,1500 03/29/17 17:37 BRENNON Hose [Antiembolic Hose] [OM.PC] Routine 03/29/17 17:38 Antiembolic Devices [RC] QSHIFT 03/29/17 18:06 Code Status [Resuscitation Status] Routine 03/29/17 20:23 Heat Therapy [OM.PC] Routine 03/30/17 08:00 EKG 12 Lead [EKG Documentation Completion] [RC] ROUTINE Consult to Guest Relations Representative [CONS] Routine 03/30/17 09:00 Consult to Occupational Therapy [OT Evaluation and Treatment] [CONS] Routine Consult to Physical Therapy [PT Evaluation and Treatment] [CONS] Routine Consult to Physician [CONS] Routine 03/31/17 05:00 BMP [BASIC METABOLIC PANEL,BMP] [CHEM] DAILY CBC WITH AUTO DIFF [HEME] DAILY 04/01/17 05:00 BMP [BASIC METABOLIC PANEL,BMP] [CHEM] DAILY CBC WITH AUTO DIFF [HEME] DAILY 04/02/17 05:00 CBC WITH AUTO DIFF [HEME] DAILY - Plan Plan:: Impression: SNF placement unable to take care of herself Has agreed for placement, prefers [facility] Chronic lower back pain Right UE pain, reverse shoulder TBA for outside facility RLE pain Multiple drug "allergies" Chronic History of DVT PUD CKD Anxiety Depression Personalty Disorder Hypothyroidism Plan: Continue home meds Discuss right shoulder with ortho, procedure TBA per ortho no additional X Rays required. Continue heating pad Daily Labs Consult PT/OT/SW DVT/GI prophylaxis DC pending placement
[2017-03-30] MEDS ORDERED: hydrALAZINE 20 MG/ML SDV IVPUSH PRN (15:59)
[2017-03-30] MEDS: Lidocaine 5% 700 MG Patch TOP SCH (16:40)
[2017-03-30] MEDS: Losartan 25 MG Tab PO SCH (18:17)
[2017-03-30] MEDS: Mirtazapine 30 MG Tab PO SCH (20:32)
--- NOTE | 2017-03-30 23:16 | CONS ---
CONSULTING PHYSICIAN: Hugo Jarquin MD DATE OF CONSULTATION: 03/30/2017 IDENTIFICATION: The patient is a 57-year-old female, who was admitted to the inpatient medical unit at [place], [place] on 03/28/2017. She is seen for psychiatric evaluation per Treatment Team request. CHIEF COMPLAINT: "I thought I had a UTI." HISTORY OF PRESENT ILLNESS: The patient is a 57-year-old female, who reports that she began feeling weak and was having some shakes and thought she might have a urinary tract infection and called 911. She was subsequently seen in the ER and admitted to the inpatient medical unit. She is currently having her UTI addressed as well as some musculoskeletal issues involving possible rotator cuff damage in her right shoulder that may need to be surgically repaired by Orthopedics. She is endorsing some symptoms of anxiety and depression, but states that the anxiety and depression have been better over the past few weeks. Evidently, the patient had to go in to a psychiatric hospital last month in February after "I got psychotic" and some medications that were given to her. The patient is not sure what medications were prescribed to her, but she states that when she was on the inpatient psychiatric unit, they gave her a combination of Remeron and loxapine in addition to her currently prescribed Effexor XR and she states that since that time, she is "not anxious" anymore and her depression is much better. She states "my head is clear and my thoughts are clear" and she does not feel that she needs any new psychiatric medication at the moment. The main issue right now is "I have problems sleeping" and she states that she is "shaking all day long" and attributes this to the new medications. She states that she began shaking after she was started on the medications on the inpatient psychiatric unit, but she does not feel that the shaking this is borne out of anxiety and emphasized again "I am not anxious." She denies that she is suicidal or homicidal. She denies any psychotic, delusional, or paranoid symptoms. She reports a little bit decreased appetite, but she states that she thinks that is because she has been physically ill, but overall she is reporting good energy levels. MEDICATIONS: At time of presentation, 1. Valium 5 mg b.i.d. 2. Effexor XR 150 mg q.a.m. and 75 mg at bedtime. 3. Remeron 15 mg t.i.d. which was started 3 weeks ago. 4. Loxapine 10 mg daily was also which was also started 3 weeks ago. 5. Cogentin 2 mg at bedtime which was started about 3 weeks according to the patient. 6. Atarax 25 mg q.6 hours p.r.n. 7. Lisinopril. ALLERGIES: 1. Acetaminophen. 2. Acetylsalicylic acid. 3. Ibuprofen. 4. Buspirone. 5. Codeine. 6. Oxycodone. 7. Morphine. 8. Meloxicam. 9. Relafen. 10.Diflucan. PAST MEDICAL HISTORY: 1. UTI. 2. Status post gastric bypass surgery. 3. Right shoulder injury involving possible rotator cuff joint damage. 4. Status post right wrist surgery. 5. Status post right knee replacement. 6. Status post C4, C6 surgery. 7. Hypertension. REVIEW OF SYSTEMS: Aside from cardiovascular, genitourinary, GI and musculoskeletal, all other major organ systems are negative at this point in time for acute difficulties, and complications. FAMILY PSYCHIATRIC AND CD HISTORY: Significant for depression in family on both sides according to the patient. Past psychiatric and CD history, the patient reports one psychiatric hospitalization in February 2017. Denies any chemical dependency treatment. She chews tobacco 1 pouch per day per patient report. Denies any previous suicide attempts, self-injurious behaviors, or eating disorder history. Past psychiatric diagnosis per staff reports, personality disorder, and psychosis. Primary outpatient psychiatrist was Dr. Barnhart according to the patient, out of [place]. SOCIAL HISTORY: The patient was born and raised in [place], [place]. Highest level of education is that she has a bachelor's in criminal justice. 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 Not involved in any current relationships. Has no biological children. She is currently living in [place] by herself. She has been on disability for about the past year and a half for her physical health issues. Not reporting any prior service or any current legal difficulties. She is raised [employer]ism. She enjoys photography, paining, drawing, hunting and fishing. MENTAL STATUS EXAM: The patient is a 57-year-old, white female, no apparent distress. Speech is of regular rate and rhythm. The patient is cognitively oriented. Psychomotor activity is within normal limits. There are no abnormal motor movements or tics observed. Gait and station are not observed. This patient is bedbound for the interview. Mood is good, affect cooperative overall for the purposes of the inpatient psychiatric consult. There is no behavioral or stated evidence of acute suicidal or homicidal ideation or acute psychotic delusional paranoid symptoms. Thought processes are organized. There are no manic symptoms, loose associations evident. Judgment and insight appear unimpaired at this point in time. Motivation for help appears fair to good. VITAL SIGNS: 139/70, 65, 16, and 97.3 degrees. IMPRESSION: [place] I: 1. Depression, NOS F32 0.9. 2. Past history of psychosis NOS resolved, F29. 3. Past history of possible major depressive disorder. 4. Past history of anxiety disorder, NOS. Currently resolved, F41.9. [place] II: 1. None. [place] III: 1. Urinary tract infection. 2. Possible right rotator cuff injury. 3. Status post gastric bypass. 4. History of hypertension. 5. Status post C4 to C6 surgery. 6. Status post right wrist surgery. 7. Status post right knee replacement. [place] IV: Severe. [place] V: 65. PLAN: 1. Recommend increasing the patient's Cogentin from 2 mg at bedtime to 1 mg q.a.m. 2 mg at bedtime to help reduce symptoms of EPSE and akathisia that may be being caused by the loxapine. 2. Continue Remeron but change dosing time of 15 mg t.i.d. to 45 mg at bedtime. 3. Continue Effexor but change Effexor XR dosing time from 150 mg q.a.m. 75 mg at bedtime to 225 mg q.a.m. also to help possibly reduce the EPSE and akathisia. 4. Continue loxapine 10 mg daily. 5. Continue Atarax 25 mg q.6 hours p.r.n. 6. Other medications as dosed and prescribed by the patient's primary medical treatment team. 7. Also continue Valium 5 mg b.i.d. and 20 mg at bedtime for anxiety reduction per treatment team discretion. 8. Pastoral guidance. 9. Recommend that when patient is medically stabilized and discharged back to community that she follow up with outpatient psychiatry. 10.We will continue to follow up with the patient on as needed basis while she remains on the inpatient medical unit. 11.We will follow up with the patient sooner if any complications in the interim. 12.Crisis plan is in place. JENNA /[id number]
[2017-03-31] MEDS: Acetaminophen/HYDROcodone 325-10 MG Tab PO PRN ×3 (03:03→18:18)
[2017-03-31] MEDS: Levothyroxine 88 MCG Tab PO SCH (06:24)
[2017-03-31] MEDS: Pantoprazole 40 MG Tab.CR PO SCH ×2 (06:24→15:00)
[2017-03-31] MEDS: Ondansetron 4 MG Tab.DIS PO SCH ×3 (06:24→21:05)
[2017-03-31] MEDS: Propranolol 60 MG Cap.ER PO SCH (09:06)
[2017-03-31] MEDS: Diazepam 5 MG Tab PO SCH ×3 (09:06→21:05)
[2017-03-31] MEDS: Benztropine 1 MG Tab PO SCH ×2 (09:06→21:06)
[2017-03-31] MEDS: Acyclovir 200 MG Cap PO SCH ×2 (09:07→21:05)
[2017-03-31] MEDS: Venlafaxine 75 MG Cap.ER PO SCH (09:07)
[2017-03-31] MEDS: LOXAPINE 10 MG PO SCH ×2 (09:09→21:06)
--- NOTE | 2017-03-31 09:40 | PCM.PN ---
- General Info Date of Service: 03/31/17 Functional Status: Reports: tolerating diet, ambulating (walker), urinating - Review of Systems General: Reports: No Symptoms HEENT: Reports: no symptoms Pulmonary: Reports: no symptoms Cardiovascular: Reports: No Symptoms Gastrointestinal: Reports: No symptoms Genitourinary: Reports: no symptoms Musculoskeletal: Reports: shoulder pain (right) Skin: Reports: no symptoms Neurological: Reports: No Symptoms Psychiatric: Reports: no symptoms - Patient Data Vitals - most recent: Last Vital Signs Temp 36.4 C 03/31/17 05:56 Pulse 110 H 03/31/17 08:13 Resp 20 03/31/17 08:12 BP 146/99 H 03/31/17 08:13 Pulse Ox 99 03/31/17 08:13 Weight - most recent: 74.435 kg I&O - last 24 hours: Intake & Output 03/30/17 03/31/17 03/31/17 22:59 06:59 14:59 Intake Total 1330 100 Output Total 1000 1800 Balance 330 -1700 Lab Results last 24 hrs: Laboratory Results - last 24 hr 03/31/17 03/31/17 Range/Units 04:26 04:26 WBC 8.27 (3.98-10.04) K/mm3 RBC 3.93 L (3.98-5.22) M/mm3 Hgb 11.9 (11.2-15.7) gm/L Hct 36.6 (34.1-44.9) % MCV 93.1 (79.4-94.8) fl MCH 30.3 (25.6-32.2) pg MCHC 32.5 (32.2-35.5) g/dl RDW Std Deviation 54.3 H (36.4-46.3) fL Plt Count 329 (182-369) K/mm3 MPV 9.9 (9.4-12.3) fl Neut % (Auto) 51.7 (34.0-71.1) % Lymph % (Auto) 32.8 (19.3-51.7) % [place] % (Auto) 11.5 (4.7-12.5) % Eos % (Auto) 3.0 (0.7-5.8) Baso % (Auto) 0.5 (0.1-1.2) % Neut # (Auto) 4.28 (1.56-6.13) K/mm3 Lymph # (Auto) 2.71 (1.18-3.74) K/mm3 [place] # (Auto) 0.95 H (0.24-0.36) K/mm3 Eos # (Auto) 0.25 (0.04-0.36) K/mm3 Baso # (Auto) 0.04 (0.01-0.08) K/mm3 Sodium 143 (136-145) mEq/L Potassium 4.0 (3.5-5.1) mEq/L Chloride 109 H (98-107) mEq/L Carbon Dioxide 24 (21-32) mEq/L Anion Gap 14.0 (5-15) BUN 17 (7-18) mg/dL Creatinine 0.9 (0.55-1.02) mg/dL Est Cr Clr Drug Dosing 55.86 mL/min Estimated GFR (MDRD) > 60 (>60) mL/min BUN/Creatinine Ratio 18.9 H (14-18) Glucose 97 (74-106) mg/dL Calcium 8.7 (8.5-10.1) mg/dL Med Orders - Current: Current Medications Hydrocodone Bitart/Acetaminophen ([place] 325-10 Mg) 1 tab PO Q6H PRN PRN Reason: Pain Last Admin: 03/31/17 09:06 Dose: 1 tab Acyclovir (Zovirax) 400 mg PO BID [facility] Last Admin: 03/31/17 09:07 Dose: 400 mg Benztropine Mesylate (Cogentin) 2 mg PO BEDTIME [facility] Last Admin: 03/30/17 20:31 Dose: 2 mg Benztropine Mesylate (Cogentin) 1 mg PO DAILY [facility] Last Admin: 03/31/17 09:06 Dose: 1 mg Diazepam (Valium.) 20 mg PO BEDTIME [facility] Last Admin: 03/30/17 20:32 Dose: 20 mg Diazepam (Valium.) 5 mg PO BID@0900,1500 [facility] Last Admin: 03/31/17 09:06 Dose: 5 mg Hydralazine HCl (Apresoline) 20 mg IVPUSH Q6H PRN PRN Reason: Hypertension Hydroxyzine HCl (Atarax) 25 mg PO Q6H PRN PRN Reason: Itching Last Admin: 03/29/17 10:58 Dose: 25 mg Levothyroxine Sodium (Synthroid) 88 mcg PO ACBREAKFAST [facility] Last Admin: 03/31/17 06:24 Dose: 88 mcg Lidocaine (Lidoderm 5%) 700 mg TOP Q24H [facility] Last Admin: 03/30/17 16:40 Dose: Not Given Losartan Potassium (Cozaar) 50 mg PO QPM [facility] Last Admin: 03/30/17 18:17 Dose: 50 mg Mirtazapine (Remeron) 45 mg PO BEDTIME [facility] Last Admin: 03/30/17 20:32 Dose: 45 mg Miscellaneous Information (Remove Patch) 1 ea TRDERM Q24H [facility] Last Admin: 03/31/17 06:24 Dose: Not Given Non-Formulary Medication (Loxapine) 10 mg PO BID [facility] Last Admin: 03/31/17 09:09 Dose: Not Given Ondansetron HCl (Zofran Odt) 8 mg PO Q8H [facility] Last Admin: 03/31/17 06:24 Dose: 8 mg Pantoprazole Sodium (Protonix) 40 mg PO BIDAC [facility] Last Admin: 03/31/17 06:24 Dose: 40 mg Propranolol HCl (Inderal La) 60 mg PO QAM [facility] Last Admin: 03/31/17 09:06 Dose: 60 mg Sodium Chloride (Saline Flush) 10 ml FLUSH ASDIRECTED PRN PRN Reason: Keep Vein Open Last Admin: 03/28/17 08:20 Dose: 10 ml Venlafaxine HCl (Effexor Xr) 225 mg PO DAILY [facility] Last Admin: 03/31/17 09:07 Dose: 225 mg Discontinued Medications Clonazepam (Klonopin) 2 mg PO BEDTIME [facility] Clonidine HCl (Catapres) 0.1 mg PO BEDTIME [facility] Diazepam (Valium.) 5 mg PO 0915 [facility] Hydrochlorothiazide (Hydrochlorothiazide) 12.5 mg PO DAILY [facility] Hydromorphone HCl (Dilaudid) 0.5 mg IVPUSH ONETIME ONE Stop: 03/28/17 07:52 Last Admin: 03/28/17 08:28 Dose: 0.5 mg Hydromorphone HCl (Dilaudid) 0.5 mg IVPUSH ONETIME ONE Stop: 03/28/17 09:00 Last Admin: 03/28/17 09:09 Dose: 0.5 mg Hydroxyzine HCl (Atarax) 25 mg PO DAILY PRN PRN Reason: Anxiety Hydroxyzine HCl (Atarax) 150 mg PO BEDTIME [facility] Hydroxyzine HCl (Atarax) 100 mg PO BEDTIME [facility] Hydroxyzine HCl (Atarax) 25 mg PO Q6H PRN PRN Reason: Itching Sodium Chloride (Normal Saline) 500 mls @ 999 mls/hr IV .BOLUS ONE Stop: 03/28/17 08:22 Last Admin: 03/28/17 08:29 Dose: 999 mls/hr Levothyroxine Sodium (Levothyroxine) 75 mcg PO DAILY [facility] Lisinopril (Prinivil) 20 mg PO DAILY [facility] Lorazepam (Ativan) 2 mg IVPUSH ONETIME ONE Stop: 03/28/17 17:24 Last Admin: 03/28/17 17:33 Dose: 2 mg Mirtazapine (Remeron) 15 mg PO TID [facility] Last Admin: 03/29/17 22:59 Dose: 15 mg Non-Formulary Medication (Minocycline) 100 mg PO BID [facility] Non-Formulary Medication (Loxapine) 50 mg PO BEDTIME [facility] Non-Formulary Medication (Loxapine) 10 mg PO 0915 [facility] Venlafaxine HCl (Effexor) 75 mg PO TID [facility] Last Admin: 03/28/17 14:18 Dose: 75 mg Venlafaxine HCl (Effexor Xr) 150 mg PO DAILY [facility] Last Admin: 03/29/17 08:43 Dose: 150 mg Venlafaxine HCl (Effexor Xr) 75 mg PO QPM [facility] Last Admin: 03/29/17 18:07 Dose: 75 mg - Exam Quality Assessment: DVT prophylaxis General: alert, oriented, cooperative, no acute distress HEENT: Pupils equal, Pupils reactive, EOMI Neck: supple, trachea midline Lungs: Normal respiratory effort Cardiovascular: Regular Rate Abdomen: bowel sounds present, soft, no tenderness, no distension (Female) Exam: Deferred Back Exam: normal inspection Extremities: normal pulses Skin: warm Neurological: no new focal deficit, normal speech Psy/Mental Status: alert, anxious - Problem List & Annotations (1) Difficulty walking SNOMED Code(s): 704138103 Code(s): R26.2 - DIFFICULTY IN WALKING, NOT ELSEWHERE CLASSIFIED Status: Acute Current Visit: Yes (2) Low back pain SNOMED Code(s): 413952374 Code(s): M54.5 - LOW BACK PAIN Status: Acute Current Visit: Yes Qualifiers: Chronicity: acute Back pain laterality: bilateral Sciatica presence: without sciatica Qualified Code(s): M54.5 - Low back pain (3) Closed head injury without concussion SNOMED Code(s): 42499157 Code(s): S09.90XA - UNSPECIFIED INJURY OF HEAD, INITIAL ENCOUNTER Status: Acute Current Visit: No Qualifiers: Encounter type: initial encounter Qualified Code(s): S09.90XA - Unspecified injury of head, initial encounter - Problem List Review Problem List Initiated/Reviewed/Updated: Yes - My Orders Last 24 Hours: My Active Orders 03/30/17 09:00 Consult to Occupational Therapy [OT Evaluation and Treatment] [CONS] Routine Consult to Physical Therapy [PT Evaluation and Treatment] [CONS] Routine Consult to Physician [CONS] Routine 03/30/17 15:59 hydrALAZINE [Apresoline] 20 mg IVPUSH Q6H PRN 04/01/17 05:00 BMP [BASIC METABOLIC PANEL,BMP] [CHEM] DAILY CBC WITH AUTO DIFF [HEME] DAILY 04/02/17 05:00 CBC WITH AUTO DIFF [HEME] DAILY - Plan Plan:: Impression: SNF placement unable to take care of herself Has agreed for placement, prefers [facility] Chronic lower back pain Right UE pain, reverse shoulder TBA for outside facility RLE pain Multiple drug "allergies" Chronic History of DVT PUD CKD Anxiety Depression Personalty Disorder Hypothyroidism Plan: Continue home meds Shoulder procedure declined by Dr Larose, will need [place] consult no additional X Rays required. Continue heating pad Daily Labs Consult PT/OT/SW DVT/GI prophylaxis LOS>96 hours, placement to SNF, pending.
[2017-03-31] MEDS: Lidocaine 5% 700 MG Patch TOP SCH (17:10)
[2017-03-31] MEDS: Losartan 25 MG Tab PO SCH (17:11)
[2017-03-31] MEDS: Mirtazapine 30 MG Tab PO SCH (21:05)
[2017-04-01] MEDS: Acetaminophen/HYDROcodone 325-10 MG Tab PO PRN ×3 (00:20→15:14)
[2017-04-01] MEDS: Pantoprazole 40 MG Tab.CR PO SCH ×2 (05:16→15:14)
[2017-04-01] MEDS: Ondansetron 4 MG Tab.DIS PO SCH ×3 (05:16→20:47)
[2017-04-01] MEDS: Levothyroxine 88 MCG Tab PO SCH (05:16)
[2017-04-01] MEDS: Benztropine 1 MG Tab PO SCH ×2 (09:42→20:49)
[2017-04-01] MEDS: Propranolol 60 MG Cap.ER PO SCH (09:42)
[2017-04-01] MEDS: Acyclovir 200 MG Cap PO SCH ×2 (09:42→20:47)
[2017-04-01] MEDS: Diazepam 5 MG Tab PO SCH ×3 (09:43→20:49)
[2017-04-01] MEDS: Venlafaxine 75 MG Cap.ER PO SCH (09:43)
[2017-04-01] MEDS: LOXAPINE 10 MG PO SCH (09:43)
--- NOTE | 2017-04-01 13:36 | PCM.PN ---
- General Info Date of Service: 04/01/17 Functional Status: Reports: pain controlled, tolerating diet, ambulating, urinating - Review of Systems General: Reports: No Symptoms HEENT: Reports: no symptoms Pulmonary: Reports: no symptoms Cardiovascular: Reports: No Symptoms Gastrointestinal: Reports: No symptoms Genitourinary: Reports: no symptoms Musculoskeletal: Reports: no symptoms Skin: Reports: no symptoms Neurological: Reports: No Symptoms Psychiatric: Reports: no symptoms - Patient Data Vitals - most recent: Last Vital Signs Temp 36.5 C 04/01/17 07:17 Pulse 83 04/01/17 07:17 Resp 16 04/01/17 07:17 BP 122/56 L 04/01/17 07:17 Pulse Ox 99 04/01/17 07:17 Weight - most recent: 74.979 kg I&O - last 24 hours: Intake & Output 03/31/17 04/01/17 04/01/17 22:59 06:59 14:59 Intake Total 920 600 480 Output Total 600 1600 Balance 320 -1000 480 Lab Results last 24 hrs: Laboratory Results - last 24 hr 04/01/17 04/01/17 Range/Units 04:27 04:27 WBC 9.37 (3.98-10.04) K/mm3 RBC 4.29 (3.98-5.22) M/mm3 Hgb 12.9 (11.2-15.7) gm/L Hct 40.1 (34.1-44.9) % MCV 93.5 (79.4-94.8) fl MCH 30.1 (25.6-32.2) pg MCHC 32.2 (32.2-35.5) g/dl RDW Std Deviation 54.4 H (36.4-46.3) fL Plt Count 375 H (182-369) K/mm3 MPV 9.4 (9.4-12.3) fl Neut % (Auto) 48.7 (34.0-71.1) % Lymph % (Auto) 35.6 (19.3-51.7) % [place] % (Auto) 11.1 (4.7-12.5) % Eos % (Auto) 3.5 (0.7-5.8) Baso % (Auto) 0.5 (0.1-1.2) % Neut # (Auto) 4.55 (1.56-6.13) K/mm3 Lymph # (Auto) 3.34 (1.18-3.74) K/mm3 [place] # (Auto) 1.04 H (0.24-0.36) K/mm3 Eos # (Auto) 0.33 (0.04-0.36) K/mm3 Baso # (Auto) 0.05 (0.01-0.08) K/mm3 Sodium 141 (136-145) mEq/L Potassium 4.1 (3.5-5.1) mEq/L Chloride 107 (98-107) mEq/L Carbon Dioxide 28 (21-32) mEq/L Anion Gap 10.1 (5-15) BUN 17 (7-18) mg/dL Creatinine 1.0 (0.55-1.02) mg/dL Est Cr Clr Drug Dosing 50.27 mL/min Estimated GFR (MDRD) 58 (>60) mL/min BUN/Creatinine Ratio 17.0 (14-18) Glucose 94 (74-106) mg/dL Calcium 9.0 (8.5-10.1) mg/dL Med Orders - Current: Current Medications Hydrocodone Bitart/Acetaminophen ([place] 325-10 Mg) 1 tab PO Q6H PRN PRN Reason: Pain Last Admin: 04/01/17 05:16 Dose: 1 tab Acyclovir (Zovirax) 400 mg PO BID [facility] Last Admin: 04/01/17 09:42 Dose: 400 mg Benztropine Mesylate (Cogentin) 2 mg PO BEDTIME [facility] Last Admin: 03/31/17 21:06 Dose: 2 mg Benztropine Mesylate (Cogentin) 1 mg PO DAILY [facility] Last Admin: 04/01/17 09:42 Dose: 1 mg Diazepam (Valium.) 20 mg PO BEDTIME [facility] Last Admin: 03/31/17 21:05 Dose: 20 mg Diazepam (Valium.) 5 mg PO BID@0900,1500 [facility] Last Admin: 04/01/17 09:43 Dose: 5 mg Hydralazine HCl (Apresoline) 20 mg IVPUSH Q6H PRN PRN Reason: Hypertension Hydroxyzine HCl (Atarax) 25 mg PO Q6H PRN PRN Reason: Itching Last Admin: 03/29/17 10:58 Dose: 25 mg Levothyroxine Sodium (Synthroid) 88 mcg PO ACBREAKFAST [facility] Last Admin: 04/01/17 05:16 Dose: 88 mcg Lidocaine (Lidoderm 5%) 700 mg TOP Q24H [facility] Last Admin: 03/31/17 17:10 Dose: 700 mg Losartan Potassium (Cozaar) 50 mg PO QPM [facility] Last Admin: 03/31/17 17:11 Dose: 50 mg Mirtazapine (Remeron) 45 mg PO BEDTIME [facility] Last Admin: 03/31/17 21:05 Dose: 45 mg Miscellaneous Information (Remove Patch) 1 ea TRDERM Q24H [facility] Last Admin: 04/01/17 05:16 Dose: 1 ea Ondansetron HCl (Zofran Odt) 8 mg PO Q8H [facility] Last Admin: 04/01/17 12:49 Dose: 8 mg Pantoprazole Sodium (Protonix) 40 mg PO BIDAC [facility] Last Admin: 04/01/17 05:16 Dose: 40 mg Loxapine 10 Mg 0 each PO BID [facility] Propranolol HCl (Inderal La) 60 mg PO QAM [facility] Last Admin: 04/01/17 09:42 Dose: 60 mg Sodium Chloride (Saline Flush) 10 ml FLUSH ASDIRECTED PRN PRN Reason: Keep Vein Open Last Admin: 03/28/17 08:20 Dose: 10 ml Venlafaxine HCl (Effexor Xr) 225 mg PO DAILY [facility] Last Admin: 04/01/17 09:43 Dose: 225 mg Discontinued Medications Clonazepam (Klonopin) 2 mg PO BEDTIME [facility] Clonidine HCl (Catapres) 0.1 mg PO BEDTIME [facility] Diazepam (Valium.) 5 mg PO 0915 [facility] Hydrochlorothiazide (Hydrochlorothiazide) 12.5 mg PO DAILY [facility] Hydromorphone HCl (Dilaudid) 0.5 mg IVPUSH ONETIME ONE Stop: 03/28/17 07:52 Last Admin: 03/28/17 08:28 Dose: 0.5 mg Hydromorphone HCl (Dilaudid) 0.5 mg IVPUSH ONETIME ONE Stop: 03/28/17 09:00 Last Admin: 03/28/17 09:09 Dose: 0.5 mg Hydroxyzine HCl (Atarax) 25 mg PO DAILY PRN PRN Reason: Anxiety Hydroxyzine HCl (Atarax) 150 mg PO BEDTIME [facility] Hydroxyzine HCl (Atarax) 100 mg PO BEDTIME [facility] Hydroxyzine HCl (Atarax) 25 mg PO Q6H PRN PRN Reason: Itching Sodium Chloride (Normal Saline) 500 mls @ 999 mls/hr IV .BOLUS ONE Stop: 03/28/17 08:22 Last Admin: 03/28/17 08:29 Dose: 999 mls/hr Levothyroxine Sodium (Levothyroxine) 75 mcg PO DAILY [facility] Lisinopril (Prinivil) 20 mg PO DAILY [facility] Lorazepam (Ativan) 2 mg IVPUSH ONETIME ONE Stop: 03/28/17 17:24 Last Admin: 03/28/17 17:33 Dose: 2 mg Mirtazapine (Remeron) 15 mg PO TID [facility] Last Admin: 03/29/17 22:59 Dose: 15 mg Non-Formulary Medication (Minocycline) 100 mg PO BID [facility] Non-Formulary Medication (Loxapine) 50 mg PO BEDTIME [facility] Non-Formulary Medication (Loxapine) 10 mg PO 0915 [facility] Non-Formulary Medication (Loxapine) 10 mg PO BID [facility] Last Admin: 04/01/17 09:43 Dose: Not Given Venlafaxine HCl (Effexor) 75 mg PO TID [facility] Last Admin: 03/28/17 14:18 Dose: 75 mg Venlafaxine HCl (Effexor Xr) 150 mg PO DAILY [facility] Last Admin: 03/29/17 08:43 Dose: 150 mg Venlafaxine HCl (Effexor Xr) 75 mg PO QPM [facility] Last Admin: 03/29/17 18:07 Dose: 75 mg - Exam Quality Assessment: DVT prophylaxis General: alert, oriented, cooperative, no acute distress HEENT: Pupils equal, Pupils reactive, EOMI Neck: supple, trachea midline, no JVD Lungs: Normal respiratory effort Cardiovascular: Regular Rate, Regular Rhythm Abdomen: bowel sounds present, soft, no tenderness, no distension (Female) Exam: Deferred Back Exam: normal inspection Extremities: normal pulses Skin: warm Neurological: no new focal deficit, normal speech Psy/Mental Status: alert, anxious - Problem List & Annotations (1) Difficulty walking SNOMED Code(s): 462169470 Code(s): R26.2 - DIFFICULTY IN WALKING, NOT ELSEWHERE CLASSIFIED Status: Acute Current Visit: Yes (2) Low back pain SNOMED Code(s): 236316543 Code(s): M54.5 - LOW BACK PAIN Status: Acute Current Visit: Yes Qualifiers: Chronicity: acute Back pain laterality: bilateral Sciatica presence: without sciatica Qualified Code(s): M54.5 - Low back pain (3) Closed head injury without concussion SNOMED Code(s): 84787496 Code(s): S09.90XA - UNSPECIFIED INJURY OF HEAD, INITIAL ENCOUNTER Status: Acute Current Visit: No Qualifiers: Encounter type: initial encounter Qualified Code(s): S09.90XA - Unspecified injury of head, initial encounter - Problem List Review Problem List Initiated/Reviewed/Updated: Yes - My Orders Last 24 Hours: My Active Orders 04/01/17 21:00 Patient's Own Medication [Ptom] 0 each PO BID 04/02/17 05:00 CBC WITH AUTO DIFF [HEME] DAILY - Plan Plan:: Impression: SNF placement unable to take care of herself Has agreed for placement, prefers [facility] Chronic lower back pain Right UE pain, reverse shoulder TBA for outside facility RLE pain Multiple drug "allergies" Chronic History of DVT PUD CKD Anxiety Depression Personalty Disorder Hypothyroidism Plan: Continue home meds Shoulder procedure declined by Dr Larose, will need [place] consult no additional X Rays required. Continue heating pad Daily Labs Consult PT/OT/SW DVT/GI prophylaxis LOS>96 hours; placement to SNF, pending.
[2017-04-01] MEDS: Lidocaine 5% 700 MG Patch TOP SCH (16:57)
[2017-04-01] MEDS: Losartan 25 MG Tab PO SCH (17:01)
[2017-04-01] MEDS: Mirtazapine 30 MG Tab PO SCH (20:47)
[2017-04-02] MEDS: Acetaminophen/HYDROcodone 325-10 MG Tab PO PRN ×4 (02:42→20:52)
[2017-04-02] MEDS: Ondansetron 4 MG Tab.DIS PO SCH ×3 (06:02→20:54)
[2017-04-02] MEDS: Levothyroxine 88 MCG Tab PO SCH (06:02)
[2017-04-02] MEDS: Pantoprazole 40 MG Tab.CR PO SCH ×2 (06:02→15:09)
[2017-04-02] MEDS: hydrOXYzine HCl 25 MG Tab PO PRN ×2 (06:02→14:19)
[2017-04-02] MEDS: Propranolol 60 MG Cap.ER PO SCH (07:31)
[2017-04-02] MEDS: Venlafaxine 75 MG Cap.ER PO SCH (08:35)
[2017-04-02] MEDS: Diazepam 5 MG Tab PO SCH ×3 (08:35→20:53)
[2017-04-02] MEDS: Acyclovir 200 MG Cap PO SCH ×2 (08:35→20:53)
[2017-04-02] MEDS: Benztropine 1 MG Tab PO SCH ×2 (08:36→20:54)
--- NOTE | 2017-04-02 10:18 | PCM.PN ---
- General Info Date of Service: 04/02/17 Functional Status: Reports: tolerating diet, ambulating, urinating - Review of Systems General: Reports: No Symptoms HEENT: Reports: no symptoms Pulmonary: Reports: no symptoms Cardiovascular: Reports: No Symptoms Gastrointestinal: Reports: No symptoms Genitourinary: Reports: no symptoms Musculoskeletal: Reports: leg pain (left) Skin: Reports: no symptoms Neurological: Reports: No Symptoms Psychiatric: Reports: no symptoms - Patient Data Vitals - most recent: Last Vital Signs Temp 37.2 C 04/02/17 08:11 Pulse 112 H 04/02/17 08:11 Resp 18 04/02/17 08:11 BP 131/59 L 04/02/17 08:11 Pulse Ox 98 04/02/17 08:11 Weight - most recent: 75.115 kg I&O - last 24 hours: Intake & Output 04/01/17 04/02/17 04/02/17 22:59 06:59 14:59 Intake Total 840 800 Output Total 850 1000 Balance -10 -200 Lab Results last 24 hrs: Laboratory Results - last 24 hr 04/02/17 Range/Units 05:25 WBC 10.51 H (3.98-10.04) K/mm3 RBC 4.15 (3.98-5.22) M/mm3 Hgb 12.7 (11.2-15.7) gm/L Hct 38.7 (34.1-44.9) % MCV 93.3 (79.4-94.8) fl MCH 30.6 (25.6-32.2) pg MCHC 32.8 (32.2-35.5) g/dl RDW Std Deviation 54.1 H (36.4-46.3) fL Plt Count 374 H (182-369) K/mm3 MPV 9.4 (9.4-12.3) fl Neut % (Auto) 63.3 (34.0-71.1) % Lymph % (Auto) 22.8 (19.3-51.7) % [place] % (Auto) 10.2 (4.7-12.5) % Eos % (Auto) 2.8 (0.7-5.8) Baso % (Auto) 0.5 (0.1-1.2) % Neut # (Auto) 6.66 H (1.56-6.13) K/mm3 Lymph # (Auto) 2.40 (1.18-3.74) K/mm3 [place] # (Auto) 1.07 H (0.24-0.36) K/mm3 Eos # (Auto) 0.29 (0.04-0.36) K/mm3 Baso # (Auto) 0.05 (0.01-0.08) K/mm3 Med Orders - Current: Current Medications Hydrocodone Bitart/Acetaminophen ([place] 325-10 Mg) 1 tab PO Q6H PRN PRN Reason: Pain Last Admin: 04/02/17 07:30 Dose: 1 tab Acyclovir (Zovirax) 400 mg PO BID [facility] Last Admin: 04/02/17 08:35 Dose: 400 mg Benztropine Mesylate (Cogentin) 2 mg PO BEDTIME [facility] Last Admin: 04/01/17 20:49 Dose: 2 mg Benztropine Mesylate (Cogentin) 1 mg PO DAILY [facility] Last Admin: 04/02/17 08:36 Dose: 1 mg Diazepam (Valium.) 20 mg PO BEDTIME [facility] Last Admin: 04/01/17 20:49 Dose: 20 mg Diazepam (Valium.) 5 mg PO BID@0900,1500 [facility] Last Admin: 04/02/17 08:35 Dose: 5 mg Hydralazine HCl (Apresoline) 20 mg IVPUSH Q6H PRN PRN Reason: Hypertension Hydroxyzine HCl (Atarax) 25 mg PO Q6H PRN PRN Reason: Itching Last Admin: 04/02/17 06:02 Dose: 25 mg Levothyroxine Sodium (Synthroid) 88 mcg PO ACBREAKFAST [facility] Last Admin: 04/02/17 06:02 Dose: 88 mcg Lidocaine (Lidoderm 5%) 700 mg TOP Q24H [facility] Last Admin: 04/01/17 16:57 Dose: 700 mg Losartan Potassium (Cozaar) 50 mg PO QPM [facility] Last Admin: 04/01/17 17:01 Dose: 50 mg Mirtazapine (Remeron) 45 mg PO BEDTIME [facility] Last Admin: 04/01/17 20:47 Dose: 45 mg Miscellaneous Information (Remove Patch) 1 ea TRDERM Q24H [facility] Last Admin: 04/02/17 06:03 Dose: 1 ea Ondansetron HCl (Zofran Odt) 8 mg PO Q8H [facility] Last Admin: 04/02/17 06:02 Dose: 8 mg Pantoprazole Sodium (Protonix) 40 mg PO BIDAC [facility] Last Admin: 04/02/17 06:02 Dose: 40 mg Loxapine 10 Mg 0 each PO BID [facility] Last Admin: 04/02/17 08:36 Dose: Not Given Propranolol HCl (Inderal La) 60 mg PO QAM [facility] Last Admin: 04/02/17 07:31 Dose: 60 mg Sodium Chloride (Saline Flush) 10 ml FLUSH ASDIRECTED PRN PRN Reason: Keep Vein Open Last Admin: 03/28/17 08:20 Dose: 10 ml Venlafaxine HCl (Effexor Xr) 225 mg PO DAILY [facility] Last Admin: 04/02/17 08:35 Dose: 225 mg Discontinued Medications Clonazepam (Klonopin) 2 mg PO BEDTIME [facility] Clonidine HCl (Catapres) 0.1 mg PO BEDTIME [facility] Diazepam (Valium.) 5 mg PO 0915 [facility] Hydrochlorothiazide (Hydrochlorothiazide) 12.5 mg PO DAILY [facility] Hydromorphone HCl (Dilaudid) 0.5 mg IVPUSH ONETIME ONE Stop: 03/28/17 07:52 Last Admin: 03/28/17 08:28 Dose: 0.5 mg Hydromorphone HCl (Dilaudid) 0.5 mg IVPUSH ONETIME ONE Stop: 03/28/17 09:00 Last Admin: 03/28/17 09:09 Dose: 0.5 mg Hydroxyzine HCl (Atarax) 25 mg PO DAILY PRN PRN Reason: Anxiety Hydroxyzine HCl (Atarax) 150 mg PO BEDTIME [facility] Hydroxyzine HCl (Atarax) 100 mg PO BEDTIME [facility] Hydroxyzine HCl (Atarax) 25 mg PO Q6H PRN PRN Reason: Itching Sodium Chloride (Normal Saline) 500 mls @ 999 mls/hr IV .BOLUS ONE Stop: 03/28/17 08:22 Last Admin: 03/28/17 08:29 Dose: 999 mls/hr Levothyroxine Sodium (Levothyroxine) 75 mcg PO DAILY [facility] Lisinopril (Prinivil) 20 mg PO DAILY [facility] Lorazepam (Ativan) 2 mg IVPUSH ONETIME ONE Stop: 03/28/17 17:24 Last Admin: 03/28/17 17:33 Dose: 2 mg Mirtazapine (Remeron) 15 mg PO TID [facility] Last Admin: 03/29/17 22:59 Dose: 15 mg Non-Formulary Medication (Minocycline) 100 mg PO BID [facility] Non-Formulary Medication (Loxapine) 50 mg PO BEDTIME [facility] Non-Formulary Medication (Loxapine) 10 mg PO 0915 [facility] Non-Formulary Medication (Loxapine) 10 mg PO BID [facility] Last Admin: 04/01/17 09:43 Dose: Not Given Venlafaxine HCl (Effexor) 75 mg PO TID [facility] Last Admin: 03/28/17 14:18 Dose: 75 mg Venlafaxine HCl (Effexor Xr) 150 mg PO DAILY [facility] Last Admin: 03/29/17 08:43 Dose: 150 mg Venlafaxine HCl (Effexor Xr) 75 mg PO QPM [facility] Last Admin: 03/29/17 18:07 Dose: 75 mg - Exam Quality Assessment: DVT prophylaxis General: alert, oriented, cooperative HEENT: Pupils equal, Pupils reactive, EOMI Neck: supple, trachea midline Lungs: Normal respiratory effort Cardiovascular: Regular Rate, Regular Rhythm Abdomen: bowel sounds present, soft, no tenderness, no distension (Female) Exam: Deferred Back Exam: Normal Inspection Extremities: normal pulses Skin: warm Neurological: no new focal deficit Psy/Mental Status: alert - Problem List & Annotations (1) Difficulty walking SNOMED Code(s): 699236579 Code(s): R26.2 - DIFFICULTY IN WALKING, NOT ELSEWHERE CLASSIFIED Status: Acute Current Visit: Yes (2) Low back pain SNOMED Code(s): 249734644 Code(s): M54.5 - LOW BACK PAIN Status: Acute Current Visit: Yes Qualifiers: Chronicity: acute Back pain laterality: bilateral Sciatica presence: without sciatica Qualified Code(s): M54.5 - Low back pain (3) Closed head injury without concussion SNOMED Code(s): 58267257 Code(s): S09.90XA - UNSPECIFIED INJURY OF HEAD, INITIAL ENCOUNTER Status: Acute Current Visit: No Qualifiers: Encounter type: initial encounter Qualified Code(s): S09.90XA - Unspecified injury of head, initial encounter - Problem List Review Problem List Initiated/Reviewed/Updated: Yes - My Orders Last 24 Hours: My Active Orders 04/01/17 21:00 Patient's Own Medication [Ptom] 0 each PO BID - Plan Plan:: Impression: SNF placement unable to take care of herself Has agreed for placement, prefers [facility] Chronic lower back pain, stable Right UE pain, reverse shoulder TBA for outside facility RLE pain, stable Multiple drug "allergies" Chronic History of DVT PUD CKD Anxiety Depression Personalty Disorder Hypothyroidism Plan: Continue home meds Shoulder procedure declined by Dr Larose, will need [place] consult no additional X Rays required. Continue heating pad Daily Labs Consult PT/OT/SW DVT/GI prophylaxis LOS>96 hours; placement to SNF, pending.
[2017-04-02] MEDS: Lidocaine 5% 700 MG Patch TOP SCH (17:03)
[2017-04-02] MEDS: Losartan 25 MG Tab PO SCH (17:03)
[2017-04-02] MEDS ORDERED: Aluminum Hydroxide/Magnesium Hydroxide/Simethicone Susp 30 ML Cup PO PRN (18:43)
[2017-04-02] MEDS: Mirtazapine 30 MG Tab PO SCH (20:53)
[2017-04-03] MEDS: Pantoprazole 40 MG Tab.CR PO SCH ×2 (06:28→15:12)
[2017-04-03] MEDS: Ondansetron 4 MG Tab.DIS PO SCH ×2 (06:28→14:08)
[2017-04-03] MEDS: Levothyroxine 88 MCG Tab PO SCH (06:28)
[2017-04-03] MEDS: Propranolol 60 MG Cap.ER PO SCH (08:04)
[2017-04-03] MEDS: Diazepam 5 MG Tab PO SCH ×2 (08:04→14:08)
[2017-04-03] MEDS: Acyclovir 200 MG Cap PO SCH (08:04)
[2017-04-03] MEDS: Venlafaxine 75 MG Cap.ER PO SCH (08:04)
[2017-04-03] MEDS: Benztropine 1 MG Tab PO SCH (08:05)
--- NOTE | 2017-04-03 13:16 | PCM.PN ---
- General Info Date of Service: 04/03/17 - Patient Data Vitals - most recent: Last Vital Signs Temp 36.6 C 04/03/17 07:14 Pulse 102 H 04/03/17 07:14 Resp 19 04/03/17 07:14 BP 132/87 04/03/17 07:14 Pulse Ox 100 04/03/17 07:14 Weight - most recent: 75.07 kg I&O - last 24 hours: Intake & Output 04/02/17 04/03/17 04/03/17 22:59 06:59 14:59 Intake Total 1230 1036 690 Output Total 1100 600 Balance 130 436 690 Med Orders - Current: Current Medications Hydrocodone Bitart/Acetaminophen ([place] 325-10 Mg) 1 tab PO Q6H PRN PRN Reason: Pain Last Admin: 04/02/17 20:52 Dose: 1 tab Acyclovir (Zovirax) 400 mg PO BID [facility] Last Admin: 04/03/17 08:04 Dose: 400 mg Al Hydroxide/Mg Hydroxide (Mag-Al Plus) 30 ml PO Q8H PRN PRN Reason: Constipation Last Admin: 04/02/17 19:16 Dose: 30 ml Benztropine Mesylate (Cogentin) 2 mg PO BEDTIME [facility] Last Admin: 04/02/17 20:54 Dose: 2 mg Benztropine Mesylate (Cogentin) 1 mg PO DAILY [facility] Last Admin: 04/03/17 08:05 Dose: 1 mg Diazepam (Valium.) 20 mg PO BEDTIME [facility] Last Admin: 04/02/17 20:53 Dose: 20 mg Diazepam (Valium.) 5 mg PO BID@0900,1500 [facility] Last Admin: 04/03/17 08:04 Dose: 5 mg Hydralazine HCl (Apresoline) 20 mg IVPUSH Q6H PRN PRN Reason: Hypertension Hydroxyzine HCl (Atarax) 25 mg PO Q6H PRN PRN Reason: Itching Last Admin: 04/02/17 14:19 Dose: 25 mg Levothyroxine Sodium (Synthroid) 88 mcg PO ACBREAKFAST [facility] Last Admin: 04/03/17 06:28 Dose: 88 mcg Lidocaine (Lidoderm 5%) 700 mg TOP Q24H [facility] Last Admin: 04/02/17 17:03 Dose: 700 mg Losartan Potassium (Cozaar) 50 mg PO QPM [facility] Last Admin: 04/02/17 17:03 Dose: 50 mg Mirtazapine (Remeron) 45 mg PO BEDTIME [facility] Last Admin: 04/02/17 20:53 Dose: 45 mg Miscellaneous Information (Remove Patch) 1 ea TRDERM Q24H [facility] Last Admin: 04/03/17 08:03 Dose: 1 ea Ondansetron HCl (Zofran Odt) 8 mg PO Q8H [facility] Last Admin: 04/03/17 06:28 Dose: 8 mg Pantoprazole Sodium (Protonix) 40 mg PO BIDAC [facility] Last Admin: 04/03/17 06:28 Dose: 40 mg Loxapine 10 Mg 0 each PO BID [facility] Last Admin: 04/03/17 08:05 Dose: Not Given Propranolol HCl (Inderal La) 60 mg PO QAM [facility] Last Admin: 04/03/17 08:04 Dose: 60 mg Sodium Chloride (Saline Flush) 10 ml FLUSH ASDIRECTED PRN PRN Reason: Keep Vein Open Last Admin: 03/28/17 08:20 Dose: 10 ml Venlafaxine HCl (Effexor Xr) 225 mg PO DAILY [facility] Last Admin: 04/03/17 08:04 Dose: 225 mg Discontinued Medications Clonazepam (Klonopin) 2 mg PO BEDTIME [facility] Clonidine HCl (Catapres) 0.1 mg PO BEDTIME [facility] Diazepam (Valium.) 5 mg PO 0915 [facility] Hydrochlorothiazide (Hydrochlorothiazide) 12.5 mg PO DAILY [facility] Hydromorphone HCl (Dilaudid) 0.5 mg IVPUSH ONETIME ONE Stop: 03/28/17 07:52 Last Admin: 03/28/17 08:28 Dose: 0.5 mg Hydromorphone HCl (Dilaudid) 0.5 mg IVPUSH ONETIME ONE Stop: 03/28/17 09:00 Last Admin: 03/28/17 09:09 Dose: 0.5 mg Hydroxyzine HCl (Atarax) 25 mg PO DAILY PRN PRN Reason: Anxiety Hydroxyzine HCl (Atarax) 150 mg PO BEDTIME [facility] Hydroxyzine HCl (Atarax) 100 mg PO BEDTIME [facility] Hydroxyzine HCl (Atarax) 25 mg PO Q6H PRN PRN Reason: Itching Sodium Chloride (Normal Saline) 500 mls @ 999 mls/hr IV .BOLUS ONE Stop: 03/28/17 08:22 Last Admin: 03/28/17 08:29 Dose: 999 mls/hr Levothyroxine Sodium (Levothyroxine) 75 mcg PO DAILY [facility] Lisinopril (Prinivil) 20 mg PO DAILY [facility] Lorazepam (Ativan) 2 mg IVPUSH ONETIME ONE Stop: 03/28/17 17:24 Last Admin: 03/28/17 17:33 Dose: 2 mg Mirtazapine (Remeron) 15 mg PO TID [facility] Last Admin: 03/29/17 22:59 Dose: 15 mg Non-Formulary Medication (Minocycline) 100 mg PO BID [facility] Non-Formulary Medication (Loxapine) 50 mg PO BEDTIME [facility] Non-Formulary Medication (Loxapine) 10 mg PO 0915 [facility] Non-Formulary Medication (Loxapine) 10 mg PO BID [facility] Last Admin: 04/01/17 09:43 Dose: Not Given Venlafaxine HCl (Effexor) 75 mg PO TID [facility] Last Admin: 03/28/17 14:18 Dose: 75 mg Venlafaxine HCl (Effexor Xr) 150 mg PO DAILY [facility] Last Admin: 03/29/17 08:43 Dose: 150 mg Venlafaxine HCl (Effexor Xr) 75 mg PO QPM [facility] Last Admin: 03/29/17 18:07 Dose: 75 mg - Problem List & Annotations (1) Difficulty walking SNOMED Code(s): 886124233 Code(s): R26.2 - DIFFICULTY IN WALKING, NOT ELSEWHERE CLASSIFIED Status: Acute Current Visit: Yes (2) Low back pain SNOMED Code(s): 114843355 Code(s): M54.5 - LOW BACK PAIN Status: Acute Current Visit: Yes Qualifiers: Chronicity: acute Back pain laterality: bilateral Sciatica presence: without sciatica Qualified Code(s): M54.5 - Low back pain (3) Closed head injury without concussion SNOMED Code(s): 75511576 Code(s): S09.90XA - UNSPECIFIED INJURY OF HEAD, INITIAL ENCOUNTER Status: Acute Current Visit: No Qualifiers: Encounter type: initial encounter Qualified Code(s): S09.90XA - Unspecified injury of head, initial encounter - My Orders Last 24 Hours: My Active Orders 04/02/17 18:43 Alum Hydrox/Mag Hydrox/Simeth [Mag-Al Plus] 30 ml PO Q8H PRN 04/03/17 Breakfast Heart Healthy Diet [DIET] - Plan Plan:: Impression: SNF placement unable to take care of herself Has agreed for placement, prefers [facility] Chronic lower back pain, stable Right UE pain, reverse shoulder TBA for outside facility RLE pain, stable Multiple drug "allergies" Chronic History of DVT PUD CKD Anxiety Depression Personalty Disorder Hypothyroidism Plan: Continue home meds Shoulder procedure declined by Dr Larose, will need Handy consult no additional X Rays required. Continue heating pad Daily Labs Consult PT/OT/SW DVT/GI prophylaxis LOS>96 hours; placement to SNF, pending.
[2017-04-03] MEDS: Acetaminophen/HYDROcodone 325-10 MG Tab PO PRN (14:10)
[2017-04-03 14:50] VITALS: BP 139/86
--- NOTE | 2017-04-03 17:24 | PCM.DCSUM1 ---
Addendum entered and electronically signed by Hannah Cueva PA-C 06:14: Discharge Summary - Discharge Data Discharge Date: 04/03/17 Discharge Disposition: Home, Self-Care 01 Condition: Good - Patient Summary/Data Consults: Consultations 03/30/17 07:47 Consult to Spiritual Care [CONS] Routine 03/30/17 08:00 Consult to Distance Learning Coordinator [CONS] Routine 03/30/17 09:00 Consult to Occupational Therapy [OT Evaluation and Treatment] [CONS] Routine Consult to Physical Therapy [PT Evaluation and Treatment] [CONS] Routine Consult to Physician [CONS] Routine Recommended Follow-up Testing/Procedures: Face to face encounter with patient and Dr. Lucero on day of discharge: Patient is home bound due to generalized weakness, chronic low back pain/ diffuse musculoskeletal pain, anxiety/depression. She will benefit from retirement home health care for her chronic medical conditions as noted above for frequent medical assessments, monitoring of VS, assistance with medications and monitoring. She will follow up with her PCP Dr. Khan, within one week of discharge who will assume Home Health Care monitoring from there. - Patient Instructions Diet: Usual Diet as Tolerated Activity: As Tolerated Driving: Do Not Drive Showering/Bathing: May Shower Notify Provider of: Fever, Increased Pain - Discharge Plan Prescriptions/Med Rec: Benztropine [Cogentin] 1 mg PO DAILY #30 tablet Diazepam [Valium] 5 mg PO BID@0900,1500 #60 tablet Mirtazapine [Remeron] 45 mg PO BEDTIME #45 tablet Venlafaxine [Effexor XR] 225 mg PO DAILY #90 cap.er Home Medications: Home Meds Omeprazole 20 mg PO BID 09/29/14 [History] Acyclovir 400 mg PO BID 04/15/15 [History] cloNIDine [Catapres] 0.1 mg PO Q8H 09/19/15 [History] Ascorbate Calcium [Vitamin C] 500 mg PO DAILY 03/28/17 [History] Calcium Gluconate 500 mg PO DAILY 03/28/17 [History] Cholecalciferol (Vitamin D3) [Vitamin D3] 2,000 unit PO DAILY 03/28/17 [History] Diazepam [Valium] 20 mg PO BEDTIME 03/28/17 [History] Ferrous Sulfate 325 mg PO DAILY 03/28/17 [History] Hydrocodone/Acetaminophen [[place] 10-325 Tablet] 1 tab PO Q6H PRN 03/28/17 [ History] Levothyroxine Sodium 88 mcg PO ACBREAKFAST 03/28/17 [History] Losartan Potassium 50 mg PO QPM 03/28/17 [History] Loxapine Succinate [Loxapine] 10 mg PO 0915 03/28/17 [History] Loxapine Succinate [Loxapine] 50 mg PO BEDTIME 03/28/17 [History] Mirtazapine 7.5 mg PO TID 03/28/17 [History] Multivitamin [Daily Multiple Vitamin] 1 tab PO DAILY 03/28/17 [History] Ondansetron [Zofran Odt] 8 mg PO Q6H PRN 03/28/17 [History] Potassium Chloride [Klor-Con M20] 20 meq PO DAILY 03/28/17 [History] Propranolol [Inderal LA] 60 mg PO QAM 03/28/17 [History] hydrOXYzine Pamoate [Hydroxyzine Pamoate] 25 mg PO Q6H PRN 03/28/17 [History] Benztropine [Cogentin] 1 mg PO DAILY #30 tablet 04/03/17 [Rx] Diazepam [Valium] 5 mg PO BID@0900,1500 #60 tablet 04/03/17 [Rx] Mirtazapine [Remeron] 45 mg PO BEDTIME #45 tablet 04/03/17 [Rx] Venlafaxine [Effexor XR] 225 mg PO DAILY #90 cap.er 04/03/17 [Rx] Patient Handouts: Back Pain, Adult, [id number], Dehydration, Adult Forms: ED Department Discharge Referrals: Jorge Khan MD [Primary Care Provider] - 04/10/17 1:30 pm (Please arrive 15 minutes early to register. ) - Patient Data Vitals - Most Recent: Last Vital Signs Temp 98.4 F 04/03/17 14:24 Pulse 88 04/03/17 14:24 Resp 18 04/03/17 14:24 BP 139/86 04/03/17 14:24 Pulse Ox 97 04/03/17 14:24 Weight - Most Recent: 165 lb 8 oz Med Orders - Current: Current Medications Discontinued Medications Hydrocodone Bitart/Acetaminophen ([place] 325-10 Mg) 1 tab PO Q6H PRN PRN Reason: Pain Last Admin: 04/03/17 14:10 Dose: 1 tab Acyclovir (Zovirax) 400 mg PO BID [facility] Last Admin: 04/03/17 08:04 Dose: 400 mg Al Hydroxide/Mg Hydroxide (Mag-Al Plus) 30 ml PO Q8H PRN PRN Reason: Constipation Last Admin: 04/02/17 19:16 Dose: 30 ml Benztropine Mesylate (Cogentin) 2 mg PO BEDTIME [facility] Last Admin: 04/02/17 20:54 Dose: 2 mg Benztropine Mesylate (Cogentin) 1 mg PO DAILY [facility] Last Admin: 04/03/17 08:05 Dose: 1 mg Clonazepam (Klonopin) 2 mg PO BEDTIME [facility] Clonidine HCl (Catapres) 0.1 mg PO BEDTIME [facility] Diazepam (Valium.) 20 mg PO BEDTIME [facility] Last Admin: 04/02/17 20:53 Dose: 20 mg Diazepam (Valium.) 5 mg PO 0915 [facility] Diazepam (Valium.) 5 mg PO BID@0900,1500 [facility] Last Admin: 04/03/17 14:08 Dose: 5 mg Hydralazine HCl (Apresoline) 20 mg IVPUSH Q6H PRN PRN Reason: Hypertension Hydrochlorothiazide (Hydrochlorothiazide) 12.5 mg PO DAILY [facility] Hydromorphone HCl (Dilaudid) 0.5 mg IVPUSH ONETIME ONE Stop: 03/28/17 07:52 Last Admin: 03/28/17 08:28 Dose: 0.5 mg Hydromorphone HCl (Dilaudid) 0.5 mg IVPUSH ONETIME ONE Stop: 03/28/17 09:00 Last Admin: 03/28/17 09:09 Dose: 0.5 mg Hydroxyzine HCl (Atarax) 25 mg PO DAILY PRN PRN Reason: Anxiety Hydroxyzine HCl (Atarax) 150 mg PO BEDTIME [facility] Hydroxyzine HCl (Atarax) 100 mg PO BEDTIME [facility] Hydroxyzine HCl (Atarax) 25 mg PO Q6H PRN PRN Reason: Itching Hydroxyzine HCl (Atarax) 25 mg PO Q6H PRN PRN Reason: Itching Last Admin: 04/02/17 14:19 Dose: 25 mg Sodium Chloride (Normal Saline) 500 mls @ 999 mls/hr IV .BOLUS ONE Stop: 03/28/17 08:22 Last Admin: 03/28/17 08:29 Dose: 999 mls/hr Levothyroxine Sodium (Levothyroxine) 75 mcg PO DAILY [facility] Levothyroxine Sodium (Synthroid) 88 mcg PO ACBREAKFAST [facility] Last Admin: 04/03/17 06:28 Dose: 88 mcg Lidocaine (Lidoderm 5%) 700 mg TOP Q24H [facility] Last Admin: 04/02/17 17:03 Dose: 700 mg Lisinopril (Prinivil) 20 mg PO DAILY [facility] Lorazepam (Ativan) 2 mg IVPUSH ONETIME ONE Stop: 03/28/17 17:24 Last Admin: 03/28/17 17:33 Dose: 2 mg Losartan Potassium (Cozaar) 50 mg PO QPM [facility] Last Admin: 04/02/17 17:03 Dose: 50 mg Mirtazapine (Remeron) 15 mg PO TID [facility] Last Admin: 03/29/17 22:59 Dose: 15 mg Mirtazapine (Remeron) 45 mg PO BEDTIME [facility] Last Admin: 04/02/17 20:53 Dose: 45 mg Miscellaneous Information (Remove Patch) 1 ea TRDERM Q24H [facility] Last Admin: 04/03/17 08:03 Dose: 1 ea Non-Formulary Medication (Minocycline) 100 mg PO BID [facility] Non-Formulary Medication (Loxapine) 50 mg PO BEDTIME [facility] Non-Formulary Medication (Loxapine) 10 mg PO 0915 [facility] Non-Formulary Medication (Loxapine) 10 mg PO BID [facility] Last Admin: 04/01/17 09:43 Dose: Not Given Ondansetron HCl (Zofran Odt) 8 mg PO Q8H [facility] Last Admin: 04/03/17 14:08 Dose: 8 mg Pantoprazole Sodium (Protonix) 40 mg PO BIDAC [facility] Last Admin: 04/03/17 15:12 Dose: 40 mg Loxapine 10 Mg 0 each PO BID [facility] Last Admin: 04/03/17 08:05 Dose: Not Given Propranolol HCl (Inderal La) 60 mg PO QAM [facility] Last Admin: 04/03/17 08:04 Dose: 60 mg Sodium Chloride (Saline Flush) 10 ml FLUSH ASDIRECTED PRN PRN Reason: Keep Vein Open Last Admin: 03/28/17 08:20 Dose: 10 ml Venlafaxine HCl (Effexor) 75 mg PO TID [facility] Last Admin: 03/28/17 14:18 Dose: 75 mg Venlafaxine HCl (Effexor Xr) 150 mg PO DAILY [facility] Last Admin: 03/29/17 08:43 Dose: 150 mg Venlafaxine HCl (Effexor Xr) 75 mg PO QPM [facility] Last Admin: 03/29/17 18:07 Dose: 75 mg Venlafaxine HCl (Effexor Xr) 225 mg PO DAILY [facility] Last Admin: 04/03/17 08:04 Dose: 225 mg Original Note: Discharge Summary - Hospital Course Free Text/Narrative:: 57 year old female complained of back pain, right shoulder pain and leg pain. She was admitted for SNF placement, but because an old incorrect entry in her EMR was difficult to place in an appropriate SNF. She has been at her apartment for roughly 4 months but recently has had difficulty taking care of herself. It has been reported that she frequently called EMS to help her to the bathroom. She improved and is now able to walk more stable with use of a walker as well as take care of her bathroom needs. For example, she can pull up her pants without assistance. Psychiatry (telepsych) adjusted several of her meds after a consult. Her firearms were removed from her home as well as a cross bow. She was discharged and picked up by her family to return to her apartment. Primary Dx Placement in SNF Backpain Leg pain Right shoulder pain Condition Stable Activity as directed by PT/OT Diet Usual, recommend heart healthy Meds Home meds Cogentin 1 mg Q am 2 mg Q hs. Valium 5 mg BID Effexor XR 225 mg daily Remeron 45 mg Q hs Appt PCP, Dr Khan 1-2 weeks. Ortho in [place] - Discharge Data Discharge Date: 04/03/17 Discharge Disposition: Home, Self-Care 01 Condition: Good - Discharge Diagnosis/Problem(s) (1) Difficulty walking SNOMED Code(s): 592661517 ICD Code: R26.2 - DIFFICULTY IN WALKING, NOT ELSEWHERE CLASSIFIED Status: Acute (2) Low back pain SNOMED Code(s): 258138185 ICD Code: M54.5 - LOW BACK PAIN Status: Acute Qualifiers: Chronicity: acute Back pain laterality: bilateral Sciatica presence: without sciatica Qualified Code(s): M54.5 - Low back pain (3) Closed head injury without concussion SNOMED Code(s): 46944951 ICD Code: S09.90XA - UNSPECIFIED INJURY OF HEAD, INITIAL ENCOUNTER Status: Acute Qualifiers: Encounter type: initial encounter Qualified Code(s): S09.90XA - Unspecified injury of head, initial encounter - Patient Summary/Data Consults: Consultations 03/30/17 07:47 Consult to Spiritual Care [CONS] Routine 03/30/17 08:00 Consult to Distance Learning Coordinator [CONS] Routine 03/30/17 09:00 Consult to Occupational Therapy [OT Evaluation and Treatment] [CONS] Routine Consult to Physical Therapy [PT Evaluation and Treatment] [CONS] Routine Consult to Physician [CONS] Routine - Patient Instructions Diet: Usual Diet as Tolerated Activity: As Tolerated Driving: Do Not Drive Showering/Bathing: May Shower Notify Provider of: Fever, Increased Pain - Discharge Plan Prescriptions/Med Rec: Benztropine [Cogentin] 1 mg PO DAILY #30 tablet Diazepam [Valium] 5 mg PO BID@0900,1500 #60 tablet Mirtazapine [Remeron] 45 mg PO BEDTIME #45 tablet Venlafaxine [Effexor XR] 225 mg PO DAILY #90 cap.er Home Medications: Home Meds Omeprazole 20 mg PO BID 09/29/14 [History] Acyclovir 400 mg PO BID 04/15/15 [History] cloNIDine [Catapres] 0.1 mg PO Q8H 09/19/15 [History] Ascorbate Calcium [Vitamin C] 500 mg PO DAILY 03/28/17 [History] Calcium Gluconate 500 mg PO DAILY 03/28/17 [History] Cholecalciferol (Vitamin D3) [Vitamin D3] 2,000 unit PO DAILY 03/28/17 [History] Diazepam [Valium] 20 mg PO BEDTIME 03/28/17 [History] Ferrous Sulfate 325 mg PO DAILY 03/28/17 [History] Hydrocodone/Acetaminophen [[place] 10-325 Tablet] 1 tab PO Q6H PRN 03/28/17 [ History] Levothyroxine Sodium 88 mcg PO ACBREAKFAST 03/28/17 [History] Losartan Potassium 50 mg PO QPM 03/28/17 [History] Loxapine Succinate [Loxapine] 10 mg PO 0915 03/28/17 [History] Loxapine Succinate [Loxapine] 50 mg PO BEDTIME 03/28/17 [History] Mirtazapine 7.5 mg PO TID 03/28/17 [History] Multivitamin [Daily Multiple Vitamin] 1 tab PO DAILY 03/28/17 [History] Ondansetron [Zofran Odt] 8 mg PO Q6H PRN 03/28/17 [History] Potassium Chloride [Klor-Con M20] 20 meq PO DAILY 03/28/17 [History] Propranolol [Inderal LA] 60 mg PO QAM 03/28/17 [History] hydrOXYzine Pamoate [Hydroxyzine Pamoate] 25 mg PO Q6H PRN 03/28/17 [History] Benztropine [Cogentin] 1 mg PO DAILY #30 tablet 04/03/17 [Rx] Diazepam [Valium] 5 mg PO BID@0900,1500 #60 tablet 04/03/17 [Rx] Mirtazapine [Remeron] 45 mg PO BEDTIME #45 tablet 04/03/17 [Rx] Venlafaxine [Effexor XR] 225 mg PO DAILY #90 cap.er 04/03/17 [Rx] Patient Handouts: Back Pain, Adult, [id number], Dehydration, Adult Forms: ED Department Discharge Referrals: Jorge Khan MD [Primary Care Provider] - 04/10/17 1:30 pm (Please arrive 15 minutes early to register. ) - Discharge Summary/Plan Comment DC Time >30 min.: No - General Info Date of Service: 03/28/17 Functional Status: Reports: pain controlled, tolerating diet, ambulating, urinating - Review of Systems General: Reports: No Symptoms HEENT: Reports: no symptoms Pulmonary: Reports: no symptoms Cardiovascular: Reports: No Symptoms Gastrointestinal: Reports: No symptoms Genitourinary: Reports: no symptoms Musculoskeletal: Reports: no symptoms Skin: Reports: no symptoms Neurological: Reports: No Symptoms Psychiatric: Reports: no symptoms - Patient Data Vitals - Most Recent: Last Vital Signs Temp 36.9 C 04/03/17 14:24 Pulse 88 04/03/17 14:24 Resp 18 04/03/17 14:24 BP 139/86 04/03/17 14:24 Pulse Ox 97 04/03/17 14:24 Weight - Most Recent: 75.07 kg I&O - Last 24 hours: Intake & Output 04/03/17 04/03/17 04/03/17 06:59 14:59 22:59 Intake Total 1036 690 450 Output Total 600 Balance 436 690 450 Med Orders - Current: Current Medications Discontinued Medications Hydrocodone Bitart/Acetaminophen ([place] 325-10 Mg) 1 tab PO Q6H PRN PRN Reason: Pain Last Admin: 04/03/17 14:10 Dose: 1 tab Acyclovir (Zovirax) 400 mg PO BID [facility] Last Admin: 04/03/17 08:04 Dose: 400 mg Al Hydroxide/Mg Hydroxide (Mag-Al Plus) 30 ml PO Q8H PRN PRN Reason: Constipation Last Admin: 04/02/17 19:16 Dose: 30 ml Benztropine Mesylate (Cogentin) 2 mg PO BEDTIME [facility] Last Admin: 04/02/17 20:54 Dose: 2 mg Benztropine Mesylate (Cogentin) 1 mg PO DAILY [facility] Last Admin: 04/03/17 08:05 Dose: 1 mg Clonazepam (Klonopin) 2 mg PO BEDTIME [facility] Clonidine HCl (Catapres) 0.1 mg PO BEDTIME [facility] Diazepam (Valium.) 20 mg PO BEDTIME [facility] Last Admin: 04/02/17 20:53 Dose: 20 mg Diazepam (Valium.) 5 mg PO 0915 [facility] Diazepam (Valium.) 5 mg PO BID@0900,1500 [facility] Last Admin: 04/03/17 14:08 Dose: 5 mg Hydralazine HCl (Apresoline) 20 mg IVPUSH Q6H PRN PRN Reason: Hypertension Hydrochlorothiazide (Hydrochlorothiazide) 12.5 mg PO DAILY [facility] Hydromorphone HCl (Dilaudid) 0.5 mg IVPUSH ONETIME ONE Stop: 03/28/17 07:52 Last Admin: 03/28/17 08:28 Dose: 0.5 mg Hydromorphone HCl (Dilaudid) 0.5 mg IVPUSH ONETIME ONE Stop: 03/28/17 09:00 Last Admin: 03/28/17 09:09 Dose: 0.5 mg Hydroxyzine HCl (Atarax) 25 mg PO DAILY PRN PRN Reason: Anxiety Hydroxyzine HCl (Atarax) 150 mg PO BEDTIME [facility] Hydroxyzine HCl (Atarax) 100 mg PO BEDTIME [facility] Hydroxyzine HCl (Atarax) 25 mg PO Q6H PRN PRN Reason: Itching Hydroxyzine HCl (Atarax) 25 mg PO Q6H PRN PRN Reason: Itching Last Admin: 04/02/17 14:19 Dose: 25 mg Sodium Chloride (Normal Saline) 500 mls @ 999 mls/hr IV .BOLUS ONE Stop: 03/28/17 08:22 Last Admin: 03/28/17 08:29 Dose: 999 mls/hr Levothyroxine Sodium (Levothyroxine) 75 mcg PO DAILY [facility] Levothyroxine Sodium (Synthroid) 88 mcg PO ACBREAKFAST [facility] Last Admin: 04/03/17 06:28 Dose: 88 mcg Lidocaine (Lidoderm 5%) 700 mg TOP Q24H [facility] Last Admin: 04/02/17 17:03 Dose: 700 mg Lisinopril (Prinivil) 20 mg PO DAILY [facility] Lorazepam (Ativan) 2 mg IVPUSH ONETIME ONE Stop: 03/28/17 17:24 Last Admin: 03/28/17 17:33 Dose: 2 mg Losartan Potassium (Cozaar) 50 mg PO QPM [facility] Last Admin: 04/02/17 17:03 Dose: 50 mg Mirtazapine (Remeron) 15 mg PO TID [facility] Last Admin: 03/29/17 22:59 Dose: 15 mg Mirtazapine (Remeron) 45 mg PO BEDTIME [facility] Last Admin: 04/02/17 20:53 Dose: 45 mg Miscellaneous Information (Remove Patch) 1 ea TRDERM Q24H [facility] Last Admin: 04/03/17 08:03 Dose: 1 ea Non-Formulary Medication (Minocycline) 100 mg PO BID [facility] Non-Formulary Medication (Loxapine) 50 mg PO BEDTIME [facility] Non-Formulary Medication (Loxapine) 10 mg PO 0915 [facility] Non-Formulary Medication (Loxapine) 10 mg PO BID [facility] Last Admin: 04/01/17 09:43 Dose: Not Given Ondansetron HCl (Zofran Odt) 8 mg PO Q8H [facility] Last Admin: 05/12/17 14:08 Dose: 8 mg Pantoprazole Sodium (Protonix) 40 mg PO BIDAC [facility] Last Admin: 04/03/17 15:12 Dose: 40 mg Loxapine 10 Mg 0 each PO BID [facility] Last Admin: 04/03/17 08:05 Dose: Not Given Propranolol HCl (Inderal La) 60 mg PO QAM [facility] Last Admin: 04/03/17 08:04 Dose: 60 mg Sodium Chloride (Saline Flush) 10 ml FLUSH ASDIRECTED PRN PRN Reason: Keep Vein Open Last Admin: 03/28/17 08:20 Dose: 10 ml Venlafaxine HCl (Effexor) 75 mg PO TID [facility] Last Admin: 03/28/17 14:18 Dose: 75 mg Venlafaxine HCl (Effexor Xr) 150 mg PO DAILY [facility] Last Admin: 03/29/17 08:43 Dose: 150 mg Venlafaxine HCl (Effexor Xr) 75 mg PO QPM [facility] Last Admin: 03/29/17 18:07 Dose: 75 mg Venlafaxine HCl (Effexor Xr) 225 mg PO DAILY [facility] Last Admin: 04/03/17 08:04 Dose: 225 mg - Exam Quality Assessment: Reports: DVT prophylaxis General: Reports: alert, oriented, cooperative, no acute distress HEENT: Reports: Pupils equal, Pupils reactive, EOMI Neck: Reports: supple, trachea midline Lungs: Reports: Normal respiratory effort Cardiovascular: Reports: Regular Rate, Regular Rhythm Abdomen: Reports: bowel sounds present, soft, no tenderness, no distension (Female) Exam: Deferred Rectal (Female) Exam: Deferred Back Exam: Reports: Normal Inspection Extremities: Reports: no edema, normal pulses Neurological: Reports: no new focal deficit *Q Meaningful Use (DIS) - VTE *Q VTE Criteria *Q: - Stroke *Q Stroke Criteria *Q: - AMI *Q AMI Criteria *Q:
== END 2017-04-03 16:00 | disposition home or self-care (01) | DRG 552 ==
LOC: JD.ED 07:22 → JD.MS 11:57
PROVIDERS: ADMIT Internal Medicine Cardiovascular Disease; ATTEND Internal Medicine Cardiovascular Disease
DX: M54.5 Low back pain (principal); R53.1 Weakness; E86.0 Dehydration; I10 Essential (primary) hypertension; Z74.8 Other problems related to care provider dependency; R26.2 Difficulty in walking, not elsewhere classified; S09.90XA Unspecified injury of head, initial encounter; W19.XXXA Unspecified fall, initial encounter; F32.9 Major depressive disorder, single episode, unspecified; F41.9 Anxiety disorder, unspecified; K59.09 Other constipation; E03.9 Hypothyroidism, unspecified; D50.9 Iron deficiency anemia, unspecified; Z86.718 Personal history of other venous thrombosis and embolism; Z79.899 Other long term (current) drug therapy; Z86.711 Personal history of pulmonary embolism; H91.92 Unspecified hearing loss, left ear; Z96.651 Presence of right artificial knee joint; F17.200 Nicotine dependence, unspecified, uncomplicated; F10.10 Alcohol abuse, uncomplicated; Z91.040 Latex allergy status; Z88.8 Allergy status to other drugs, medicaments and biological substances; Z91.09 Other allergy status, other than to drugs and biological substances; Z88.6 Allergy status to analgesic agent; K27.9 Peptic ulcer, site unspecified, unspecified as acute or chronic, without hemorrhage or perforation; I12.9 Hypertensive chronic kidney disease with stage 1 through stage 4 chronic kidney disease, or unspecified chronic kidney disease; N18.9 Chronic kidney disease, unspecified; M79.604 Pain in right leg; F60.9 Personality disorder, unspecified; G89.29 Other chronic pain; M25.511 Pain in right shoulder
CPT/HCPCS: 36415; 80053; 81001; 85025; 96361; 96374; 96376; 99285; J1170 ×2; J7040; J7050; 80048; 87641; 93005; 97110-GO; 97110-GP; 97112-GP; 97116-GP; 97162-GP; 97166-GO; 97530-GO; 97535-GO; A9270-GY; J2060

== ENCOUNTER 2017-06-03 23:39 | Emergency (ER) | payer MEDICARE, MEDICAID ==
[2017-06-03 23:53] VITALS: BP 95/77
--- NOTE | 2017-06-04 01:31 | EDM.PDOC ---
ED HPI GENERAL MEDICAL PROBLEM - General Chief Complaint: Behavioral/Psych Stated Complaint: SELF PSYCH COMMIT Time Seen by Provider: 06/03/17 23:48 Source of Information: Reports: Patient, RN Notes Reviewed History Limitations: Reports: No Limitations - History of Present Illness INITIAL COMMENTS - FREE TEXT/NARRATIVE: The patient states that she thinks that she has been hallucinating, because she has been talking to her sister, who she knows is at her own house, and when she looks to the chair sitting next to her, it is empty. This has been going on for about 4 days. The patient denies having any auditory hallucinations. Patient also states that she was hanging pictures last night, and put the hammer down, but this morning, found the hammer to be in a different place. The patient states that she was psychiatrically hospitalized at [facility] about 3 weeks ago, for one week. She states that while there, her psychiatric medications were changed, and since discharge, she has been having difficulty sleeping, therefore she has been taking her Klonopin and diazepam in excess of that prescribed in order "to sleep". She denies that she did this in an attempt to harm herself, and denies that she has ever attempted to harm herself. The patient's psychiatrist is Dr. Delarosa. She states that she has not attempted to contact him. She states "I need to go to [facility]" to be psychiatrically admitted. The patient saw her PCP, Dr. Khan, earlier today, but did not discuss her current psychiatric issues with him. She states that she saw him for shoulder pain, but no prescriptions were written. - Related Data Allergies Allergy/AdvReac Type Severity Reaction Status Date / Time acetaminophen [From Tylenol] Allergy Itching Verified 06/03/17 23:49 adhesive Allergy Rash Verified 06/03/17 23:49 aspirin Allergy Itching Verified 06/03/17 23:49 [From Excedrin Back and Body] buprenorphine Allergy Itching Verified 06/03/17 23:49 calcium carbonate Allergy Itching Verified 06/03/17 23:49 [From Excedrin Back and Body] codeine Allergy Itching Verified 06/03/17 23:49 diclofenac Allergy Itching Verified 06/03/17 23:49 latex Allergy Itching Verified 06/03/17 23:49 meloxicam [From Mobic] Allergy Hives Verified 06/03/17 23:49 morphine Allergy Hives Verified 06/03/17 23:49 nabumetone [From Relafen] Allergy Hives Verified 06/03/17 23:49 oxycodone Allergy Itching Verified 06/03/17 23:49 ibuprofen AdvReac Stomach Verified 06/03/17 23:49 Upset Home Meds: Home Meds Omeprazole 20 mg PO BID 09/29/14 [History] Acyclovir 400 mg PO BID 04/15/15 [History] cloNIDine [Catapres] 0.1 mg PO Q8H 09/19/15 [History] Ascorbate Calcium [Vitamin C] 500 mg PO DAILY 03/28/17 [History] Calcium Gluconate 500 mg PO DAILY 03/28/17 [History] Cholecalciferol (Vitamin D3) [Vitamin D3] 2,000 unit PO DAILY 03/28/17 [History] Diazepam [Valium] 20 mg PO BEDTIME 03/28/17 [History] Ferrous Sulfate 325 mg PO DAILY 03/28/17 [History] Hydrocodone/Acetaminophen [[place] 10-325 Tablet] 1 tab PO Q6H PRN 03/28/17 [ History] Levothyroxine Sodium 88 mcg PO ACBREAKFAST 03/28/17 [History] Losartan Potassium 50 mg PO QPM 03/28/17 [History] Loxapine Succinate [Loxapine] 10 mg PO 0915 03/28/17 [History] Loxapine Succinate [Loxapine] 50 mg PO BEDTIME 03/28/17 [History] Mirtazapine 7.5 mg PO TID 03/28/17 [History] Multivitamin [Daily Multiple Vitamin] 1 tab PO DAILY 03/28/17 [History] Ondansetron [Zofran Odt] 8 mg PO Q6H PRN 03/28/17 [History] Potassium Chloride [Klor-Con M20] 20 meq PO DAILY 03/28/17 [History] Propranolol [Inderal LA] 60 mg PO QAM 03/28/17 [History] hydrOXYzine Pamoate [Hydroxyzine Pamoate] 25 mg PO Q6H PRN 03/28/17 [History] Benztropine [Cogentin] 1 mg PO DAILY #30 tablet 04/03/17 [Rx] Diazepam [Valium] 5 mg PO BID@0900,1500 #60 tablet 04/03/17 [Rx] Mirtazapine [Remeron] 45 mg PO BEDTIME #45 tablet 04/03/17 [Rx] Venlafaxine [Effexor XR] 225 mg PO DAILY #90 cap.er 04/03/17 [Rx] Past Medical History HEENT History: Reports: Impaired Vision Other HEENT History: Wears glasses Cardiovascular History: Reports: Blood Clots/VTE/DVT, Hypertension Respiratory History: Reports: PE Gastrointestinal History: Reports: PUD Genitourinary History: Reports: Urinary Incontinence Other Genitourinary History: HX OF IMPAIRED RENAL FUNCTION Psychiatric History: Reports: Addiction, Anxiety, Depression, Hallucinations, Psych Hospitalization(s) Endocrine/Metabolic History: Reports: Hypothyroidism Hematologic History: Reports: Anemia, Iron Deficiency - Past Surgical History GI Surgical History: Reports: Bariatric Procedure, Cholecystectomy Neurological Surgical History: Reports: C-Spine, Lumbar Spine (fusion) Musculoskeletal Surgical History: Reports: Arthroscopic Knee (right), Knee Replacement (right), ORIF (right wrist), Shoulder Surgery (right, arthroscopic) Social & Family History - Family History Family Medical History: Noncontributory Cardiac: Reports: Heart Failure, Hypertension Musculoskeletal: Reports: Osteoporosis - Tobacco Use Smoking Status *Q: Former Smoker Years of Tobacco use: 30 Packs/Tins Daily: 0.2 Second Hand Smoke Exposure: No - Caffeine Use Caffeine Use: Reports: Coffee Other Caffeine Use: 1-2 cups of coffee daily - Alcohol Use Alcohol Use History: Yes Days Per Week of Alcohol Use: 5 (chronic alcoholism) Number of Drinks Per Day: 3 Total Drinks Per Week: 15 Alcohol Use Frequency: Socially - Recreational Drug Use Recreational Drug Use: Yes Drug Use in Last 12 Months: No - Living Situation & Occupation Living situation: Reports: Single, Alone Occupation: Unemployed ED ROS GENERAL - Review of Systems Review Of Systems: See Below Constitutional: Reports: No Symptoms. Denies: Fever HEENT: Reports: No Symptoms Respiratory: Reports: Cough (x 4 days) Cardiovascular: Reports: No Symptoms Endocrine: Reports: No Symptoms GI/Abdominal: Reports: No Symptoms : Reports: No Symptoms Musculoskeletal: Reports: No Symptoms Skin: Reports: No Symptoms Neurological: Reports: No Symptoms Psychiatric: Reports: No Symptoms Hematologic/Lymphatic: Reports: No Symptoms Immunologic: Reports: No Symptoms ED EXAM, BEHAVIORAL HEALTH - Physical Exam Exam: See Below Exam Limited By: No Limitations General Appearance: Alert, WD/WN, No Apparent Distress Eye Exam: Bilateral Eye: Normal Inspection Ears: Normal External Exam, Hearing Grossly Normal Nose: Normal Inspection, No Blood Throat/Mouth: Normal Inspection, Normal Lips, Normal Voice, No Airway Compromise Head: Atraumatic, Normocephalic Neck: Normal Inspection, Full Range of Motion Respiratory/Chest: No Respiratory Distress, Lungs Clear, Normal Breath Sounds, No Accessory Muscle Use Cardiovascular: Normal Peripheral Pulses, Regular Rate, Rhythm, No Gallop, No JVD, No Murmur, No Rub GI/Abdominal: Normal Bowel Sounds, Soft, Non-Tender, No Organomegaly, No Distention, No Abnormal Bruit, No Mass (Female) Exam: Deferred Rectal (Female) Exam: Deferred Back Exam: Normal Inspection, Full Range of Motion, NT Extremities: Normal Inspection, Normal Range of Motion, No Pedal Edema, Normal Capillary Refill Neurological: Alert, No Motor/Sensory Deficits, Oriented x 3 Psychiatric: Normal Affect Skin Exam: Warm, Dry, Intact, Normal color EKG INTERPRETATION EKG Date: 06/04/17 Time: 01:51 Rhythm: NSR Rate (Beats/Min): 68 [place]: Normal P-Wave: Present QRS: Normal ST-T: Normal QT: Normal Comparison: No Change (03/30/2017) COURSE, BEHAVIORAL HEALTH COMP - Course Vital Signs: Last Vital Signs Temp 35.9 C 06/03/17 23:50 Pulse 68 06/03/17 23:50 Resp 8 L 06/03/17 23:50 BP 95/77 06/03/17 23:50 Pulse Ox 99 06/03/17 23:50 Orders, Labs, Meds: Active Orders 24 hr Category Date Time Status EKG Documentation Completion [RC] STAT Care 06/04/17 00:31 Active Laboratory Tests 06/04/17 06/04/17 06/04/17 Range/Units 00:40 00:45 00:45 WBC 12.94 H (3.98-10.04) K/mm3 RBC 4.04 (3.98-5.22) M/mm3 Hgb 12.6 (11.2-15.7) gm/L Hct 38.5 (34.1-44.9) % MCV 95.3 H (79.4-94.8) fl MCH 31.2 (25.6-32.2) pg MCHC 32.7 (32.2-35.5) g/dl RDW Std Deviation 47.5 H (36.4-46.3) fL Plt Count 364 (182-369) K/mm3 MPV 9.5 (9.4-12.3) fl Neutrophils % (Manual) 54 (40-60) % Band Neutrophils % 0 (0-10) % Lymphocytes % (Manual) 27 (20-40) % Atypical Lymphs % 1 % Monocytes % (Manual) 13 H (2-10) % Eosinophils % (Manual) 3 (0.7-5.8) % Basophils % (Manual) 2 H (0.1-1.2) Platelet Estimate Adequate Plt Morphology Comment See note Poikilocytosis 1+ slight Anisocytosis 1+ slight Microcytosis 1+ slight Macrocytosis 1+ slight Tear Drop Cells 1+ slight RBC Morph Comment Abnormal Sodium 139 (136-145) mEq/L Potassium 3.9 (3.5-5.1) mEq/L Chloride 104 (98-107) mEq/L Carbon Dioxide 23 (21-32) mEq/L Anion Gap 15.9 H (5-15) BUN 45 H (7-18) mg/dL Creatinine 1.1 H (0.55-1.02) mg/dL Est Cr Clr Drug Dosing 45.70 mL/min Estimated GFR (MDRD) 52 (>60) mL/min BUN/Creatinine Ratio 40.9 H (14-18) Glucose 116 H (74-106) mg/dL Calcium 9.2 (8.5-10.1) mg/dL Total Bilirubin 0.2 (0.2-1.0) mg/dL AST 31 (15-37) U/L ALT 70 H (14-59) U/L Alkaline Phosphatase 126 H (46-116) U/L Total Protein 7.1 (6.4-8.2) g/dl Albumin 3.5 (3.4-5.0) g/dl Globulin 3.6 gm/dL Albumin/Globulin Ratio 1.0 (1-2) TSH 3rd Generation 0.151 L (0.358-3.74) uIU/mL Salicylates (2.8-20) mg/dL Urine Opiates Screen Negative (NEGATIVE) Ur Buprenorphine Scrn Negative (NEGATIVE) Ur Oxycodone Screen Negative (NEGATIVE) Urine Methadone Screen Negative (NEGATIVE) Ur Propoxyphene Screen Negative (NEGATIVE) Acetaminophen 0 L (10-30) ug/mL Ur Barbiturates Screen Negative (NEGATIVE) Ur Tricyclics Screen Negative (NEGATIVE) Ur Phencyclidine Scrn Negative (NEGATIVE) Ur Amphetamine Screen Negative (NEGATIVE) U Methamphetamines Scrn Negative (NEGATIVE) U Benzodiazepines Scrn Presumptive positive H (NEGATIVE) U Cocaine Metab Screen Negative (NEGATIVE) U Marijuana (THC) Screen Negative (NEGATIVE) Ethyl Alcohol 0.00 (0.00) gm% 06/04/17 Range/Units 00:45 WBC (3.98-10.04) K/mm3 RBC (3.98-5.22) M/mm3 Hgb (11.2-15.7) gm/L Hct (34.1-44.9) % MCV (79.4-94.8) fl MCH (25.6-32.2) pg MCHC (32.2-35.5) g/dl RDW Std Deviation (36.4-46.3) fL Plt Count (182-369) K/mm3 MPV (9.4-12.3) fl Neutrophils % (Manual) (40-60) % Band Neutrophils % (0-10) % Lymphocytes % (Manual) (20-40) % Atypical Lymphs % % Monocytes % (Manual) (2-10) % Eosinophils % (Manual) (0.7-5.8) % Basophils % (Manual) (0.1-1.2) Platelet Estimate Plt Morphology Comment Poikilocytosis Anisocytosis Microcytosis Macrocytosis Tear Drop Cells RBC Morph Comment Sodium (136-145) mEq/L Potassium (3.5-5.1) mEq/L Chloride (98-107) mEq/L Carbon Dioxide (21-32) mEq/L Anion Gap (5-15) BUN (7-18) mg/dL Creatinine (0.55-1.02) mg/dL Est Cr Clr Drug Dosing mL/min Estimated GFR (MDRD) (>60) mL/min BUN/Creatinine Ratio (14-18) Glucose (74-106) mg/dL Calcium (8.5-10.1) mg/dL Total Bilirubin (0.2-1.0) mg/dL AST (15-37) U/L ALT (14-59) U/L Alkaline Phosphatase (46-116) U/L Total Protein (6.4-8.2) g/dl Albumin (3.4-5.0) g/dl Globulin gm/dL Albumin/Globulin Ratio (1-2) TSH 3rd Generation (0.358-3.74) uIU/mL Salicylates 2.2 L (2.8-20) mg/dL Urine Opiates Screen (NEGATIVE) Ur Buprenorphine Scrn (NEGATIVE) Ur Oxycodone Screen (NEGATIVE) Urine Methadone Screen (NEGATIVE) Ur Propoxyphene Screen (NEGATIVE) Acetaminophen (10-30) ug/mL Ur Barbiturates Screen (NEGATIVE) Ur Tricyclics Screen (NEGATIVE) Ur Phencyclidine Scrn (NEGATIVE) Ur Amphetamine Screen (NEGATIVE) U Methamphetamines Scrn (NEGATIVE) U Benzodiazepines Scrn (NEGATIVE) U Cocaine Metab Screen (NEGATIVE) U Marijuana (THC) Screen (NEGATIVE) Ethyl Alcohol (0.00) gm% Medical Clearance: 06/04/17 03:[address] Arora, Psychiatrist at [facility], at 03:07. She does not feel that the patient's symptoms are consistent with with genuine hallucinations or psychosis, or that the patient needs to be psychiatrically admitted. She is recommending the patient follow-up with her Psychiatrist as an outpatient. 06/04/17 03:16 The patient is agreeable to going home and follow up with her Psychiatrist, Dr. Warner. The patient's TSH returned low at 0.151. I am recommending that the patient follow-up with Dr. Khan to have her TSH rechecked, and possibly her levothyroxine dose decreased. Departure - Departure Time of Disposition: 03:17 Disposition: Home, Self-Care 01 Condition: Good Clinical Impression: Insomnia, Noncompliance with medications - Discharge Information Instructions: Insomnia Referrals: Jorge Khan MD [Primary Care Provider] - Julia Delarosa MD [Ordering Only Provider] - Forms: ED Department Discharge Additional Instructions: You were seen in the emergency room for insomnia and symptoms of talking to your sister who was not present. Workup in the ER included blood work, a urine drug screen, and an ECG. Your workup showed that your TSH was low, indicating that your levothyroxine dose may be too high. We recommend that you follow-up with your PCP, Dr. Khan, to have your TSH rechecked. Your case was discussed with a Psychiatrist at [facility], who does not feel that you need to be psychiatrically admitted. She is recommending that you follow-up with your Psychiatrist, Dr. Delarosa, in the morning. We recommend that you take your medications, including your Klonopin and diazepam, as prescribed, and ONLY PRESCRIBED. If any other problems, please do not hesitate to return to the ER. - My Orders Last 24 Hours: My Active Orders 06/04/17 00:31 EKG Documentation Completion [RC] STAT - Assessment/Plan Last 24 Hours: My Active Orders 06/04/17 00:31 EKG Documentation Completion [RC] STAT
== END 2017-06-04 03:45 | disposition home or self-care (01) ==
LOC: SUPCPDRO 23:39 → JD.ED 23:39
DX: G47.00 Insomnia, unspecified (principal); Z91.14 Patient's other noncompliance with medication regimen; I10 Essential (primary) hypertension; F41.9 Anxiety disorder, unspecified; F32.9 Major depressive disorder, single episode, unspecified; E03.9 Hypothyroidism, unspecified; D50.9 Iron deficiency anemia, unspecified; Z98.84 Bariatric surgery status; Z86.718 Personal history of other venous thrombosis and embolism; Z90.49 Acquired absence of other specified parts of digestive tract; Z96.651 Presence of right artificial knee joint; Z98.890 Other specified postprocedural states; Z87.891 Personal history of nicotine dependence; Z79.899 Other long term (current) drug therapy; Z88.6 Allergy status to analgesic agent; Z88.5 Allergy status to narcotic agent; Z88.8 Allergy status to other drugs, medicaments and biological substances; Z91.040 Latex allergy status; S46.011D Strain of muscle(s) and tendon(s) of the rotator cuff of right shoulder, subsequent encounter
CPT/HCPCS: 36415; 73221; 80053; 80306; 84443; 85025; 93005; 99285; G0480; 99283

== ENCOUNTER 2018-01-24 22:51 | Emergency (ER) | payer MEDICARE, MEDICAID ==
[2018-01-24 22:58] VITALS: BP 184/93
[2018-01-25] MEDS ORDERED: HYDROmorphone 0.5 MG/0.5 ML SYRINGE IVPUSH ONE (00:12)
[2018-01-25] MEDS ORDERED: Ondansetron 4 MG/2 ML SDV IVPUSH ONE (00:13)
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
[2018-01-25] MEDS ORDERED: Sodium Chloride 0.9% 1,000 ML IV SCH (00:15)
[2018-01-25] MEDS ORDERED: methylPREDNISolone Sodium Succinate 125 MG/2 ML SDV IVPUSH ONE (01:54)
== END 2018-01-25 02:05 | disposition home or self-care (01) ==
LOC: JD.ED 22:51
DX: M54.16 Radiculopathy, lumbar region (principal); I10 Essential (primary) hypertension; F32.9 Major depressive disorder, single episode, unspecified; E03.9 Hypothyroidism, unspecified; Z98.1 Arthrodesis status; Z72.0 Tobacco use; Z98.84 Bariatric surgery status; Z96.651 Presence of right artificial knee joint; Z79.899 Other long term (current) drug therapy; Z88.6 Allergy status to analgesic agent; Z88.5 Allergy status to narcotic agent; Z91.040 Latex allergy status; Z88.8 Allergy status to other drugs, medicaments and biological substances; Z91.048 Other nonmedicinal substance allergy status
CPT/HCPCS: 96361; 96374; 96375; 99284; J1170; J2405; J2930; J7040

== ENCOUNTER 2018-07-16 14:59 | Emergency (ER) | payer MEDICARE, MEDICAID ==
[2018-07-16 15:19] VITALS: BP 125/75
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
== END 2018-07-16 16:55 | disposition home or self-care (01) ==
LOC: SUPCPDRO 14:59 → JD.ED 14:59
DX: M54.5 Low back pain (principal); I10 Essential (primary) hypertension; E03.9 Hypothyroidism, unspecified; Z79.899 Other long term (current) drug therapy; Z88.6 Allergy status to analgesic agent; Z91.040 Latex allergy status; Z88.5 Allergy status to narcotic agent; Z88.8 Allergy status to other drugs, medicaments and biological substances; F41.9 Anxiety disorder, unspecified; F32.9 Major depressive disorder, single episode, unspecified
CPT/HCPCS: 99283

== ENCOUNTER 2018-08-05 04:55 | Emergency (ER) | payer MEDICARE, MEDICAID ==
[2018-08-05 05:04] VITALS: BP 126/72
[2018-08-05] MEDS ORDERED: Lidocaine 2% Viscous Solution 15 ML Cup PO ONE (05:19)
[2018-08-05] MEDS ORDERED: Lidocaine 2% Viscous Solution 15 ML Cup ONE (05:22)
--- NOTE | 2018-08-05 05:22 | EDM.PDOC ---
ED HPI GENERAL MEDICAL PROBLEM - General Chief Complaint: Respiratory Problem Stated Complaint: [facility] Time Seen by Provider: 08/05/18 05:06 Source of Information: Reports: Patient, RN Notes Reviewed History Limitations: Reports: No Limitations - History of Present Illness INITIAL COMMENTS - FREE TEXT/NARRATIVE: The patient states that she was taking one and a half tablets of amitriptyline around 01:00 this morning, and feels that she may have aspirated both of the tablets. She states that she put a finger in the back of her throat and vomited up the one whole tablet, but believes that she may have aspirated the other half tablet. Since this episode, the patient has been coughing, and states that she has a burning sensation in her throat. She states that she was not coughing for she took the pills. The patient's PCP is Soraida Walden. Throat Pain Score (Numeric/FACES): 4 - Related Data Allergies Allergy/AdvReac Type Severity Reaction Status Date / Time acetaminophen [From Tylenol] Allergy Itching Verified 01/24/18 22:59 adhesive Allergy Rash Verified 01/24/18 22:59 aspirin Allergy Itching Verified 01/24/18 22:59 [From Excedrin Back and Body] buprenorphine Allergy Itching Verified 01/24/18 22:59 calcium carbonate Allergy Itching Verified 01/24/18 22:59 [From Excedrin Back and Body] codeine Allergy Itching Verified 01/24/18 22:59 diclofenac Allergy Itching Verified 01/24/18 22:59 latex Allergy Itching Verified 01/24/18 22:59 meloxicam [From Mobic] Allergy Hives Verified 01/24/18 22:59 morphine Allergy Hives Verified 01/24/18 22:59 nabumetone [From Relafen] Allergy Hives Verified 01/24/18 22:59 oxycodone Allergy Itching Verified 01/24/18 22:59 ibuprofen AdvReac Stomach Verified 01/24/18 22:59 Upset Home Meds: Home Meds Omeprazole 20 mg PO BID 09/29/14 [History] Acyclovir 400 mg PO BID 04/15/15 [History] cloNIDine [Catapres] 0.1 mg PO Q8H 09/19/15 [History] Ascorbate Calcium [Vitamin C] 500 mg PO DAILY 03/28/17 [History] Calcium Gluconate 500 mg PO DAILY 03/28/17 [History] Cholecalciferol (Vitamin D3) [Vitamin D3] 2,000 unit PO DAILY 03/28/17 [History] Diazepam [Valium] 20 mg PO BEDTIME 03/28/17 [History] Ferrous Sulfate 325 mg PO DAILY 03/28/17 [History] Hydrocodone/Acetaminophen [[place] 10-325 Tablet] 1 tab PO Q6H PRN 03/28/17 [ History] Levothyroxine Sodium 88 mcg PO ACBREAKFAST 03/28/17 [History] Losartan Potassium 50 mg PO QPM 03/28/17 [History] Loxapine Succinate [Loxapine] 10 mg PO 0915 03/28/17 [History] Loxapine Succinate [Loxapine] 50 mg PO BEDTIME 03/28/17 [History] Mirtazapine 7.5 mg PO TID 03/28/17 [History] Multivitamin [Daily Multiple Vitamin] 1 tab PO DAILY 03/28/17 [History] Ondansetron [Zofran Odt] 8 mg PO Q6H PRN 03/28/17 [History] Potassium Chloride [Klor-Con M20] 20 meq PO DAILY 03/28/17 [History] Propranolol [Inderal LA] 60 mg PO QAM 03/28/17 [History] hydrOXYzine pamoate [Hydroxyzine Pamoate] 25 mg PO Q6H PRN 03/28/17 [History] Benztropine [Cogentin] 1 mg PO DAILY #30 tablet 04/03/17 [Rx] Diazepam [Valium] 5 mg PO BID@0900,1500 #60 tablet 04/03/17 [Rx] Mirtazapine [Remeron] 45 mg PO BEDTIME #45 tablet 04/03/17 [Rx] Venlafaxine [Effexor XR] 225 mg PO DAILY #90 cap.er 04/03/17 [Rx] Prednisone [IJD: predniSONE] 20 mg PO ASDIRECTED #18 tab 01/25/18 [Rx] oxyCODONE HCl/Acetaminophen [Percocet 10-325 mg Tablet] 1 each PO Q4HR PRN #24 tablet 01/25/18 [Rx] fentaNYL [Duragesic] 1 patch TD Q72H #1 patch 07/16/18 [Rx] Past Medical History HEENT History: Reports: Impaired Vision Other HEENT History: Wears glasses Cardiovascular History: Reports: Blood Clots/VTE/DVT, Hypertension Respiratory History: Reports: PE Gastrointestinal History: Reports: PUD Genitourinary History: Reports: Urinary Incontinence Musculoskeletal History: Reports: Back Pain, Chronic Psychiatric History: Reports: Addiction, Anxiety, Depression, Hallucinations, Psych Hospitalization(s) Endocrine/Metabolic History: Reports: Hypothyroidism, Obesity/BMI 30+ Hematologic History: Reports: Anemia, Iron Deficiency, Other (See Below) ( Factor V Leiden deficiency) - Past Surgical History GI Surgical History: Reports: Bariatric Procedure (gastric bypass 2003), Cholecystectomy Neurological Surgical History: Reports: C-Spine (ACDF x 2), Lumbar Spine (fusion ) Musculoskeletal Surgical History: Reports: Arthroscopic Knee (right), Knee Replacement (right), ORIF (right wrist), Shoulder Surgery (Right, reverse replacement) Social & Family History - Family History Family Medical History: Noncontributory Cardiac: Reports: Heart Failure, Hypertension Musculoskeletal: Reports: Osteoporosis - Caffeine Use Caffeine Use: Reports: None Other Caffeine Use: 1-2 cups of coffee daily - Living Situation & Occupation Living situation: Reports: Single, Alone Occupation: Disabled ED ROS GENERAL - Review of Systems Review Of Systems: ROS reveals no pertinent complaints other than HPI. ED EXAM, GENERAL - Physical Exam Exam: See Below Exam Limited By: No Limitations General Appearance: Alert, WD/WN, Anxious (shaky) Eye Exam: Bilateral Eye: EOMI, Normal Inspection Ears: Normal External Exam, Hearing Grossly Normal Nose: Normal Inspection, No Blood Throat/Mouth: Normal Inspection, Normal Lips, Normal Teeth, Normal Gums, Normal Oropharynx, Normal Voice, No Airway Compromise Head: Atraumatic, Normocephalic Neck: Normal Inspection, Full Range of Motion Respiratory/Chest: No Respiratory Distress, Lungs Clear, Normal Breath Sounds, No Accessory Muscle Use. No: Decreased Breath Sounds, Crackles, Rhonchi, Wheezing, Stridor, Prolonged Expiration Cardiovascular: Normal Peripheral Pulses, No Gallop, No JVD, No Murmur, No Rub, Tachycardia (regular) Peripheral Pulses: 4+: Radial (L), Radial (R) GI/Abdominal: Normal Bowel Sounds, Soft, Non-Tender, No Organomegaly, No Distention, No Abnormal Bruit, No Mass, Other (Obese) (Female) Exam: Deferred Rectal (Female) Exam: Deferred Back Exam: Normal Inspection, Full Range of Motion, NT Extremities: Normal Inspection, Normal Range of Motion, No Pedal Edema, Normal Capillary Refill Neurological: Alert, Oriented, Normal Cognition, No Motor/Sensory Deficits Psychiatric: Normal Affect Skin Exam: Warm, Dry, Intact, Normal Color, No Rash Course - Vital Signs Last Recorded V/S: Last Vital Signs Temp 37.1 C 08/05/18 04:58 Pulse 143 H 08/05/18 04:58 Resp 20 08/05/18 04:58 BP 126/72 08/05/18 04:58 Pulse Ox 96 08/05/18 04:58 - Orders/Labs/Meds Orders: Active Orders 24 hr Category Date Time Status Chest 2V [CR] Stat Exams 08/05/18 05:18 Taken Meds: Medications Discontinued Medications Generic Name Dose Route Start Last Admin Trade Name Jdq PRN Reason Stop Dose Admin Lidocaine HCl 15 ml 08/05/18 05:19 08/05/18 05:22 Xylocaine 2% Viscous PO 08/05/18 05:20 15 ml ONETIME ONE Administration Lidocaine HCl Confirm 08/05/18 05:22 Xylocaine 2% Viscous Administered 08/05/18 05:23 Dose 15 ml .ROUTE .STK-MED ONE - Re-Assessments/Exams Free Text/Narrative Re-Assessment/Exam: 08/05/18 05:41 2-view chest radiograph reviewed. Cardiac silhouette is within normal limits, although the aorta appears to be tortuous. No pulmonary vascular congestion. No pleural effusions. No focal infiltrate. No pneumothorax. Scoliosis is incidentally noted. Right reverse shoulder replacement hardware, cervical fusion , and lumbar fusion hardware incidentally noted. Formal read per the Radiologist pending. 08/05/18 06:36 The patient continues to cough, however, her oxygen saturation has remained stable, currently at 96%. I suspect that the patient has pill esophagitis, although it is possible that she aspirated the half tablet of amitriptyline. Either way, there is no indication for bronchoscopy or endoscopy, nor do I have an indication to admit the patient to the hospital. I will their discharge her home, recognizing that she will likely cough for much of the day. The patient acknowledges that. Departure - Departure Time of Disposition: 06:37 Disposition: Home, Self-Care 01 Condition: Fair Clinical Impression: Aspiration of foreign body in respiratory tract - Discharge Information *PRESCRIPTION DRUG MONITORING PROGRAM REVIEWED*: Not Applicable *COPY OF PRESCRIPTION DRUG MONITORING REPORT IN PATIENT SILVIO: Not Applicable Referrals: PCP,Misti [Primary Care Provider] - Soraida Walden QUARTZ MOUNTER [ED Midlevel Provider] - Forms: ED Department Discharge Additional Instructions: You were seen in the emergency room after possibly aspirating half a tablet of amitriptyline. Workup in the ER included a chest x-ray, which returned unremarkable. You do not have evidence of aspiration pneumonitis or pneumonia. Unfortunately, there is no way to determine if your symptoms are due to pill aspiration versus pill esophagitis. In either case, your symptoms should resolve later today. Follow-up with your PCP, Soraida Walden, as needed. If any other problems, please do not hesitate to return to the ER. - My Orders Last 24 Hours: My Active Orders 08/05/18 05:18 Chest 2V [CR] Stat - Assessment/Plan Last 24 Hours: My Active Orders 08/05/18 05:18 Chest 2V [CR] Stat
--- NOTE | 2018-08-05 06:58 | CR ---
Chest: Two views of the chest were obtained. Comparison: Previous chest x-ray of 09/19/15. Heart size and mediastinum are within normal limits. Right shoulder prosthesis is noted. Previous cervical spine surgery is seen. Lungs are clear without acute parenchymal change. Mild scoliosis is noted within the spine. Prior lumbar spine surgery is seen. Impression: 1. Incidental bony findings. 2. Nothing acute is appreciated on two-view chest x-ray. Diagnostic code #2
== END 2018-08-05 07:10 | disposition home or self-care (01) ==
LOC: JD.ED 04:55
DX: T17.990A Other foreign object in respiratory tract, part unspecified in causing asphyxiation, initial encounter (principal); F41.9 Anxiety disorder, unspecified; F32.9 Major depressive disorder, single episode, unspecified; E03.9 Hypothyroidism, unspecified; Z79.899 Other long term (current) drug therapy; Z91.040 Latex allergy status; Z88.5 Allergy status to narcotic agent; Z88.6 Allergy status to analgesic agent; Z88.8 Allergy status to other drugs, medicaments and biological substances
CPT/HCPCS: 71046; 99285; A9270

== ENCOUNTER 2019-10-21 17:42 | Emergency (ER) | payer MEDICARE, MEDICAID ==
[2019-10-21 17:52] VITALS: PULSE 71
[2019-10-21] MEDS ORDERED: Acetaminophen/HYDROcodone 325-5 MG Tab PO ONE (17:54)
[2019-10-21] MEDS ORDERED: HYDROmorphone 1 MG/ML Syringe IM ONE (18:37)
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
--- NOTE | 2019-10-24 09:12 | CR ---
Left shoulder: Two views of the left shoulder were obtained. Comparison: No prior left shoulder exam is available. Fracture is noted within the humeral head. Uncertain how much of this is acute versus old. Degenerative change is noted within the acromioclavicular joint with mild inferior spurring. Prior lower cervical spine surgery is noted. No additional abnormality is appreciated. Impression: 1. Humeral head fracture. Uncertain how much of this is old or acute. CT would be needed to further evaluate if clinically indicated. 2. Other findings as noted above which are nonacute. Diagnostic code #3 This report was dictated in [place] Standard Time
== END 2019-10-21 21:15 | disposition home or self-care (01) ==
LOC: JD.ED 17:42
DX: S42.292A Other displaced fracture of upper end of left humerus, initial encounter for closed fracture (principal); I10 Essential (primary) hypertension; K27.9 Peptic ulcer, site unspecified, unspecified as acute or chronic, without hemorrhage or perforation; F41.9 Anxiety disorder, unspecified; F32.9 Major depressive disorder, single episode, unspecified; E03.9 Hypothyroidism, unspecified; E66.9 Obesity, unspecified; Z68.36 Body mass index [BMI] 36.0-36.9, adult; Z79.890 Hormone replacement therapy; Z88.6 Allergy status to analgesic agent; Z91.048 Other nonmedicinal substance allergy status; Z88.5 Allergy status to narcotic agent; Z88.8 Allergy status to other drugs, medicaments and biological substances; Z91.040 Latex allergy status; Z79.899 Other long term (current) drug therapy; W00.0XXA Fall on same level due to ice and snow, initial encounter; Y93.01 Activity, walking, marching and hiking; Y92.009 Unspecified place in unspecified non-institutional (private) residence as the place of occurrence of the external cause
CPT/HCPCS: 73030; 96372; 99283; A9270; J1170

== ENCOUNTER 2019-10-24 07:35 | Inpatient (IN) | payer MEDICARE, MEDICAID ==
[2019-10-24] MEDS ORDERED: Acetaminophen/HYDROcodone 325-5 MG Tab PO ONE ×2 (08:16→13:29)
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
[2019-10-24] MEDS ORDERED: Ondansetron 4 MG Tab.DIS PO PRN (17:19)
[2019-10-24] MEDS ORDERED: Ondansetron 4 MG/2 ML SDV IV PRN (17:19)
[2019-10-24] MEDS ORDERED: Ibuprofen 400 MG Tab PO PRN (17:19)
[2019-10-24] MEDS: Acetaminophen/HYDROcodone 325-5 MG Tab PO PRN (20:23)
[2019-10-25] MEDS: Acetaminophen/HYDROcodone 325-5 MG Tab PO PRN ×5 (00:36→21:17)
[2019-10-25] MEDS: Enoxaparin 40 MG/0.4 ML Syringe SUBCUT SCH (08:29)
[2019-10-25] MEDS: Lactated Ringers 1,000 ML IV SCH ×3 (11:17→23:43)
--- NOTE | 2019-10-25 11:24 | CT ---
CT left shoulder Technique: Multiple axial sections through the left shoulder were obtained. Comparison: Previous left shoulder study of 10/21/19. Findings: Comminuted fracture which appears acute is seen within the humeral head and within the humeral neck. There is displacement of fracture fragments up to 1.3 cm. Glenohumeral joint is widened. Distal clavicle and scapula appear without fracture. Major portions of the humeral head are anterior in location to the glenoid. Impression: 1. Comminuted humeral head and humeral neck fracture. Greatest displacement up to 1.3 cm. 2. Widened glenohumeral joint. With major portions of the humeral head being anterior to the glenoid. Diagnostic code #3 This report was dictated in [place] Standard Time MTDD
[2019-10-25] MEDS ORDERED: Potassium Chloride 20 MEQ Tab.ER PO ONE (13:18)
--- NOTE | 2019-10-25 13:27 | PCM.PN ---
- General Info Date of Service: 10/25/19 Subjective Update: Slept ok Tolerating diet - Patient Data Vitals - Most Recent: Last Vital Signs Temp 98.1 F 10/25/19 11:21 Pulse 96 10/25/19 11:21 Resp 16 10/25/19 11:21 BP 145/63 H 10/25/19 11:21 Pulse Ox 96 10/25/19 11:21 Weight - Most Recent: 95.436 kg - Exam Physical Findings Comments:: General: Alert, Oriented, Cooperative. No: Mild Distress HEENT: Conjunctiva Clear, EACs Clear, EOMI, Mucosa Moist & [place], Nares Patent, PERRLA Neck: Supple, Trachea Midline, +2 Carotid Pulse wo Bruit. No: Lymphadenopathy, Carotid Bruit Lungs: Decreased Breath Sounds. No: Crackles, Rales, Wheezing Cardiovascular: Regular Rate, Regular Rhythm. No: Systolic Murmur, Diastolic Murmur, Rubs, Gallop/S3, Gallop/S4 GI/Abdominal Exam: Soft, Non-Tender. No: Guarding, Rigid, Rebound Back Exam: Normal Inspection Extremities: Non-Tender, No Pedal Edema, Limited Range of Motion. No: Joint Swelling Psychiatric: Alert - Problem List & Annotations (1) Abnormal LFTs SNOMED Code(s): 078962111 Code(s): R94.5 - ABNORMAL RESULTS OF LIVER FUNCTION STUDIES Status: Acute Current Visit: Yes (2) Abnormal urinalysis SNOMED Code(s): 243420825 Code(s): R82.90 - UNSPECIFIED ABNORMAL FINDINGS IN URINE Status: Acute Current Visit: Yes (3) Acute kidney failure SNOMED Code(s): 93285134 Code(s): N17.9 - ACUTE KIDNEY FAILURE, UNSPECIFIED Status: Acute Current Visit: Yes (4) Fracture of humerus SNOMED Code(s): 47717727 Code(s): S42.309A - UNSP FRACTURE OF SHAFT OF HUMERUS, UNSP ARM, INIT Status: Acute Current Visit: Yes Qualifiers: Encounter type: sequela Humerus Location: proximal Fracture type: closed Fracture morphology: unspecified fracture morphology Laterality: left Qualified Code(s): S42.202S - Unspecified fracture of upper end of left humerus , sequela (5) High anion gap metabolic acidosis SNOMED Code(s): 08534468 Code(s): E87.2 - ACIDOSIS Status: Acute Current Visit: Yes (6) Hypokalemia SNOMED Code(s): 89658505 Code(s): E87.6 - HYPOKALEMIA Status: Acute Current Visit: Yes (7) Hyponatremia SNOMED Code(s): 72182408 Code(s): E87.1 - HYPO-OSMOLALITY AND HYPONATREMIA Status: Acute Current Visit: Yes (8) Leukocytosis SNOMED Code(s): 984793973, 844599840 Code(s): D72.829 - ELEVATED WHITE BLOOD CELL COUNT, UNSPECIFIED Status: Acute Current Visit: Yes (9) Metabolic acidosis SNOMED Code(s): 12454967 Code(s): E87.2 - ACIDOSIS Status: Acute Current Visit: Yes (10) Recurrent falls while walking SNOMED Code(s): 689109719, 843535680 Code(s): R29.6 - REPEATED FALLS Status: Acute Current Visit: Yes (11) Rhabdomyolysis SNOMED Code(s): 134323494 Code(s): M62.82 - RHABDOMYOLYSIS Status: Acute Current Visit: Yes (12) Abnormal renal function SNOMED Code(s): 03999022 Code(s): N28.9 - DISORDER OF KIDNEY AND URETER, UNSPECIFIED Status: Acute Current Visit: No (13) Depressive disorder SNOMED Code(s): 76783815 Code(s): F32.9 - MAJOR DEPRESSIVE DISORDER, SINGLE EPISODE, UNSPECIFIED Status: Chronic Priority: High Current Visit: No (14) Personality disorder SNOMED Code(s): 55716547 Code(s): SXF5521 - Status: Chronic Priority: High Current Visit: No - Problem List Review Problem List Initiated/Reviewed/Updated: Yes - Plan Plan:: Recurrent falls while walking Fracture of humerus Rhabdomyolysis, improving Insufficient social support Acute on chronic deconditioning Fall on Thursday and day prior diagnosed with fracture yesterday Discharged home on pain management Fell again and stayed on the floor overnight As per patient she does not feel safe going back home as she needs more help that what she is getting currently PLAN - PT/OT evaluation - IV fluids, continue - Repeat CK - Case management and social services analyst consult Abnormal urinalysis Leukocytosis No fever or urinary symptoms Will monitor Acute kidney failure, improving Rhabdomyolysis, improving Abnormal LFTs High anion gap metabolic acidosis Hyponatremia/Hypokalemia Likely 2/2 volume depletion and elevated CK PLAJN - Repeat Ck levels - IV fluid repletion - Monitor urine output - Avoid nephrotoxic agents - Renally dosed medications Depressive disorder Personality disorder No recent psychotic breaks as per patient Unknown home meds PLAN - Reconcile home meds once available PROPHYLAXIS: DVT- Lovenox GI- Not indicated CODE STATUS: FULL CODE DISPOSITION: Patient will be admitted to medical floor for PT and OT evaluation as well as IV fluid repletion and monitorization of renal function. Patient will need half-way placement, it is unlikely she will require more than 30 days of services.
[2019-10-25] MEDS: Potassium Chloride 10 MEQ in Premix Bag 1 BAG IV SCH ×4 (13:31→17:38)
[2019-10-26] MEDS: Acetaminophen/HYDROcodone 325-5 MG Tab PO PRN ×2 (03:55→10:01)
[2019-10-26] MEDS: Lactated Ringers 1,000 ML IV SCH (06:11)
[2019-10-26] MEDS ORDERED: Mirabegron [Myrbetriq] 50 MG PO SCH (09:00)
[2019-10-26] MEDS ORDERED: Rosuvastatin 10 MG Tab PO SCH (09:00)
[2019-10-26] MEDS ORDERED: Pantoprazole 40 MG Tab.CR PO SCH (09:00)
[2019-10-26] MEDS ORDERED: Acyclovir 200 MG Cap PO SCH (09:00)
[2019-10-26] MEDS ORDERED: LOXAPINE SUCCINATE 25 MG PO SCH (09:00)
[2019-10-26] MEDS ORDERED: Venlafaxine 75 MG Cap.ER PO SCH ×2 (09:00→21:00)
[2019-10-26] MEDS ORDERED: Oxybutynin 5 MG Tab.ER PO SCH (09:00)
[2019-10-26] MEDS ORDERED: Propranolol 40 MG Tab PO SCH (09:00)
[2019-10-26] MEDS ORDERED: Phosphorus #1 250 MG Tab PO ONE (09:05)
--- NOTE | 2019-10-26 09:19 | PCM.DCSUM1 ---
Discharge Summary - Hospital Course HPI Initial Comments: This is a 59 year old female with extensive past medical history including hypertension, depression and anxiety who comes to the ED after a fall 2 days ago. As per patient early Thursday she fell from her own height when she went to get her mail. She fell directly on left shoulder after which she called EMS and was brought to the ED. Once in the ED she was found to have a fractured left humerus. She was discharged on to follow up with orthopedics as an outpatient. Thursday evening she was walking when she felt her legs "give out" and she fell again and since she understood she was told not to call EMS so frequently she did not call them. Meanwhile she lay on the floor and slept there until she was brought to the ED today. Diagnosis: Stroke: No - Discharge Data Discharge Date: 10/26/19 (Admit date: 10/24/19) Discharge Disposition: DC/Tfer to SNF 03 Condition: Good - Referral to Home Health Primary Care Physician: Soraida Walden NP - Discharge Diagnosis/Problem(s) (1) Hypophosphatemia SNOMED Code(s): 4505500 ICD Code: E83.39 - OTHER DISORDERS OF PHOSPHORUS METABOLISM Status: Acute Priority: Medium Current Visit: Yes (2) Abnormal LFTs SNOMED Code(s): 279637509 ICD Code: R94.5 - ABNORMAL RESULTS OF LIVER FUNCTION STUDIES Status: Acute Current Visit: Yes (3) Abnormal urinalysis SNOMED Code(s): 375245161 ICD Code: R82.90 - UNSPECIFIED ABNORMAL FINDINGS IN URINE Status: Acute Priority: Medium Current Visit: No (4) Acute kidney failure SNOMED Code(s): 83453664 ICD Code: N17.9 - ACUTE KIDNEY FAILURE, UNSPECIFIED Status: Resolved Priority: High Current Visit: Yes (5) Fracture of humerus SNOMED Code(s): 87159211 ICD Code: S42.309A - UNSP FRACTURE OF SHAFT OF HUMERUS, UNSP ARM, INIT Status: Acute Priority: High Current Visit: Yes Qualifiers: Encounter type: sequela Humerus Location: proximal Fracture type: closed Fracture morphology: unspecified fracture morphology Laterality: left Qualified Code(s): S42.202S - Unspecified fracture of upper end of left humerus , sequela (6) High anion gap metabolic acidosis SNOMED Code(s): 92934681 ICD Code: E87.2 - ACIDOSIS Status: Resolved Priority: High Current Visit: Yes (7) Hypokalemia SNOMED Code(s): 96065591 ICD Code: E87.6 - HYPOKALEMIA Status: Resolved Priority: High Current Visit: Yes (8) Hyponatremia SNOMED Code(s): 59056159 ICD Code: E87.1 - HYPO-OSMOLALITY AND HYPONATREMIA Status: Resolved Priority: High Current Visit: Yes (9) Leukocytosis SNOMED Code(s): 214367675, 570364650 ICD Code: D72.829 - ELEVATED WHITE BLOOD CELL COUNT, UNSPECIFIED Status: Resolved Current Visit: Yes Qualifiers: Leukocytosis type: unspecified Qualified Code(s): D72.829 - Elevated white blood cell count, unspecified (10) Recurrent falls while walking SNOMED Code(s): 824732665, 634495165 ICD Code: R29.6 - REPEATED FALLS Status: Acute Priority: High Current Visit: Yes (11) Rhabdomyolysis SNOMED Code(s): 890898093 ICD Code: M62.82 - RHABDOMYOLYSIS Status: Acute Priority: High Current Visit: Yes Qualifiers: Rhabdomyolysis type: traumatic Encounter type: initial encounter Qualified Code(s): T79.6XXA - Traumatic ischemia of muscle, initial encounter - Patient Summary/Data Consults: Consultations 10/24/19 17:19 Consult to Case Management/Classified Advertising Clerk [CONS] Routine OT Evaluation and Treatment [CONS] Routine PT Evaluation and Treatment [CONS] Routine Labs Pending at D/C: None Recommended Follow-up Testing/Procedures: Follow-up with PCP within 5-7 days of discharge Follow-up with orthopedics as scheduled Recommend re-check CBC, CMP, CK, magnesium, phosphorous on 10/28/19 Hospital Course: Brigida was admitted to the hospital floor with 3 recurrent falls. She had suffered a fracture of her humerus which was diagnosed prior to admission. Even after that diagnosis she was noted to have more falls and actually was noted to have been laying on the ground for at least an overnight. Per the patient she does not feel safe at home and needs more help. On admission CK was elevated at over 5000, this did trend downward to 1800 with IV fluids. She did see PT/OT who are recommending SNF placement. On admission she did have mild leukocytosis which was thought to be a stress reaction. UA was positive however patient has had no urinary symptoms and this is likely contaminant. She was noted to be volume depleted with elevated LFTs and acute renal injury. As noted she was given IV fluids. Watch lites were abnormal with low potassium and phosphorus. These were supplemented. She does have a long psychiatric history and home medications were continued. She did have a sling and swathe in place due to her prior left shoulder injury. She should continue wearing this. She had been prescribed Gower with that visit and should continue this as directed. All other home medications were continued. She was given 1 dose of Neutra-Phos 250 mg. She should take another dose tonight and one more dose tomorrow morning for completing treatment. She has had an appointment scheduled with Dr. Boswell, orthopedic surgeon, tomorrow and should attend this appointment as she will likely need surgical fixation of her humerus fracture. Given her psychiatric history is recommended this be performed elsewhere as we do not have psychiatric services here. But when she follow-up with her primary care provider within 5-7 days of discharge. She should continue PT/OT at SNF. Discussed case with primary care provider and will order a CBC, CMP, magnesium, phosphorus, CK for 10/28/19 with results to her primary care provider. He was discharged to [facility] today. Given her fracture and potential for rehabilitation is felt she will likely not need to remain in their facility for greater than 30 days. - Patient Instructions Diet: Heart Healthy Diet Activity: As Tolerated Driving: Do Not Drive Notify Provider of: Fever, Increased Pain, Nausea and/or Vomiting Other/Special Instructions: Follow-up with primary care provider within 5-7 days of discharge, sooner if needed. Follow-up with orthopedics as scheduled. Continue PT/OT at SNF. Resume home medications as ordered. Should symptoms return or worsen, contact primary care provider or return to the Emergency Department. - Discharge Plan *PRESCRIPTION DRUG MONITORING PROGRAM REVIEWED*: No *COPY OF PRESCRIPTION DRUG MONITORING REPORT IN PATIENT SILVIO: No Prescriptions/Med Rec: Phosphorus #1 [Neutra-Phos] 250 mg PO BID #2 tablet Home Medications: Home Meds Diazepam [Valium] 10 mg PO BEDTIME 03/28/17 [History] Levothyroxine Sodium 88 mcg PO ACBREAKFAST 03/28/17 [History] Acyclovir 400 mg PO BID 10/25/19 [History] Benztropine [Cogentin] 1 mg PO BEDTIME 10/25/19 [History] Diazepam [Valium] 5 mg PO Q6HR PRN 10/25/19 [History] Fluticasone Propionate [Flonase] 2 sprays NASBOTH DAILY 10/25/19 [History] Hydrocodone/Acetaminophen [Gower 5-325 Tablet] 1 - 2 tab PO Q6HR PRN 10/25/19 [ History] Loxapine Succinate [Loxapine] 25 mg PO BID 10/25/19 [History] Mirabegron [Myrbetriq] 50 mg PO DAILY 10/25/19 [History] Omeprazole 20 mg PO BID 10/25/19 [History] Oxybutynin [Oxybutynin ER] 5 mg PO BID 10/25/19 [History] Potassium Chloride [Klor-Con 10] 10 meq PO DAILY 10/25/19 [History] Propranolol [Inderal] 40 mg PO DAILY 10/25/19 [History] Rosuvastatin [Crestor] 10 mg PO DAILY 10/25/19 [History] Venlafaxine HCl [Venlafaxine ER] 300 mg PO BEDTIME 10/25/19 [History] Venlafaxine [Effexor XR] 75 mg PO DAILY 10/25/19 [History] cloNIDine HCl [Catapres] 0.1 mg PO BID 10/25/19 [History] Phosphorus #1 [Neutra-Phos] 250 mg PO BID #2 tablet 10/26/19 [Rx] Oxygen Therapy Mode: Room Air Patient Handouts: Humerus Fracture Treated With Immobilization, [id number], How to Use a Sling, [id number] Referrals: Pelon Boswell MD [Ordering Only Provider] - 10/27/19 10:20 am (appointment is at [facility] in [place], second floor please arrive 15 minutes prior to the appointment.) Soraida Walden NP [Primary Care Provider] - - Discharge Summary/Plan Comment DC Time >30 min.: Yes (45 mins ) - General Info Date of Service: 10/26/19 Subjective Update: Slept ok Tolerating diet Functional Status: Reports: Pain Controlled, Tolerating Diet, Ambulating, Urinating. Denies: New Symptoms - Review of Systems General: Reports: Weakness (improving ). Denies: Fever, Fatigue, Malaise, Chills HEENT: Reports: No Symptoms. Denies: Headaches, Sore Throat Pulmonary: Reports: No Symptoms. Denies: Shortness of Breath, Pleuritic Chest Pain, Cough, Sputum, Wheezing Cardiovascular: Reports: No Symptoms. Denies: Chest Pain, Palpitations, Edema Gastrointestinal: Reports: No Symptoms. Denies: Abdominal Pain, Constipation, Diarrhea, Nausea, Vomiting Genitourinary: Reports: No Symptoms. Denies: Pain Musculoskeletal: Reports: Shoulder Pain (left), Arm Pain (left) Skin: Reports: No Symptoms. Denies: Cyanosis Neurological: Reports: No Symptoms. Denies: Confusion Psychiatric: Reports: No Symptoms - Patient Data Vitals - Most Recent: Last Vital Signs Temp 97.7 F 10/26/19 04:00 Pulse 102 H 10/26/19 04:00 Resp 17 10/26/19 04:00 BP 120/40 L 10/26/19 04:00 Pulse Ox 99 10/26/19 04:00 Weight - Most Recent: 216 lb 9.6 oz I&O - Last 24 hours: Intake & Output 10/25/19 10/26/19 10/26/19 22:59 06:59 14:59 Intake Total 680 540 Output Total 1150 750 Balance -470 -210 Lab Results - Last 24 hrs: Laboratory Results - last 24 hr 10/25/19 10/25/19 10/26/19 Range/Units 15:40 19:55 05:18 Sodium (136-145) mEq/L Potassium (3.5-5.1) mEq/L Chloride (98-107) mEq/L Carbon Dioxide (21-32) mEq/L Anion Gap (5-15) BUN (7-18) mg/dL Creatinine (0.55-1.02) mg/dL Est Cr Clr Drug Dosing mL/min Estimated GFR (MDRD) (>60) mL/min BUN/Creatinine Ratio (14-18) Glucose (74-106) mg/dL Calcium (8.5-10.1) mg/dL Phosphorus (2.6-4.7) mg/dL Magnesium (1.8-2.4) mg/dl Total Bilirubin (0.2-1.0) mg/dL AST (15-37) U/L ALT (14-59) U/L Alkaline Phosphatase (46-116) U/L Creatine Kinase 3060 H 2746 H 1850 H (26-192) U/L Total Protein (6.4-8.2) g/dl Albumin (3.4-5.0) g/dl Globulin gm/dL Albumin/Globulin Ratio (1-2) 10/26/19 Range/Units 07:05 Sodium 139 (136-145) mEq/L Potassium 3.7 (3.5-5.1) mEq/L Chloride 107 (98-107) mEq/L Carbon Dioxide 24 (21-32) mEq/L Anion Gap 11.7 (5-15) BUN 11 (7-18) mg/dL Creatinine 0.6 (0.55-1.02) mg/dL Est Cr Clr Drug Dosing 81.82 mL/min Estimated GFR (MDRD) > 60 (>60) mL/min BUN/Creatinine Ratio 18.3 H (14-18) Glucose 129 H (74-106) mg/dL Calcium 8.4 L (8.5-10.1) mg/dL Phosphorus 1.5 L (2.6-4.7) mg/dL Magnesium 2.0 (1.8-2.4) mg/dl Total Bilirubin 0.3 (0.2-1.0) mg/dL AST 94 H (15-37) U/L ALT 227 H (14-59) U/L Alkaline Phosphatase 178 H (46-116) U/L Creatine Kinase (26-192) U/L Total Protein 6.2 L (6.4-8.2) g/dl Albumin 2.6 L (3.4-5.0) g/dl Globulin 3.6 gm/dL Albumin/Globulin Ratio 0.7 L (1-2) CLIFF Results - Last 24 hrs: Microbiology 10/24/19 12:02 Urine Culture - Final Urine, Clean Catch Klebsiella Pneumoniae Med Orders - Current: Current Medications Hydrocodone Bitart/Acetaminophen (Gower 325-5 Mg) 1 tab PO Q4H PRN PRN Reason: Pain (moderate 4-6) Last Admin: 10/24/19 20:23 Dose: 1 tab Hydrocodone Bitart/Acetaminophen (Gower 325-5 Mg) 2 tab PO Q4H PRN PRN Reason: Pain (severe 7-10) Last Admin: 10/26/19 03:55 Dose: 2 tab Acyclovir (Zovirax) 400 mg PO BID [facility] Benztropine Mesylate (Cogentin) 1 mg PO BEDTIME [facility] Diazepam (Valium.) 10 mg PO BEDTIME [facility] Enoxaparin Sodium (Lovenox) 40 mg SUBCUT DAILY [facility] Last Admin: 10/25/19 08:29 Dose: 40 mg Lactated Ringer's (Ringers, Lactated) 1,000 mls @ 150 mls/hr IV ASDIRECTED [facility] Last Admin: 10/26/19 06:11 Dose: 150 mls/hr Ibuprofen (Motrin) 400 mg PO Q6H PRN PRN Reason: Pain (mild 1-3) Levothyroxine Sodium (Synthroid) 88 mcg PO ACBREAKFAST [facility] Ondansetron HCl (Zofran Odt) 4 mg PO Q6H PRN PRN Reason: nausea, able to take PO Ondansetron HCl (Zofran) 4 mg IV Q6H PRN PRN Reason: Nausea/Vomiting Oxybutynin Chloride (Oxybutynin Er) 5 mg PO BID [facility] Pantoprazole Sodium (Protonix) 40 mg PO BID [facility] Loxapine Succinate (25 Mg) 0 each PO BID [facility] Mirabegron [ (Myrbetriq] 50 Mg) 0 each PO DAILY [facility] Propranolol HCl (Inderal) 40 mg PO DAILY [facility] Rosuvastatin Calcium (Crestor) 10 mg PO DAILY [facility] Sodium Phosphate (Neutra-Phos) 250 mg PO BID [facility] Stop: 10/27/19 09:01 Venlafaxine HCl (Effexor Xr) 75 mg PO DAILY [facility] Venlafaxine HCl (Effexor Xr) 300 mg PO BEDTIME [facility] Discontinued Medications Hydrocodone Bitart/Acetaminophen (Gower 325-5 Mg) 2 tab PO ONETIME ONE Stop: 10/24/19 08:17 Last Admin: 10/24/19 08:23 Dose: 2 tab Hydrocodone Bitart/Acetaminophen (Gower 325-5 Mg) 2 tab PO ONETIME ONE Stop: 10/24/19 13:30 Last Admin: 10/24/19 13:45 Dose: 2 tab Potassium Chloride 10 meq/ (Premix) 100 mls @ 100 mls/hr IV Q1H [facility] Stop: 10/25/19 17:29 Last Admin: 10/25/19 17:38 Dose: 100 mls/hr Potassium Chloride (Klor-Con M20) 40 meq PO ONETIME ONE Stop: 10/25/19 13:19 Last Admin: 10/25/19 13:32 Dose: 40 meq Sodium Phosphate (Neutra-Phos) 250 mg PO ONETIME ONE Stop: 10/26/19 09:06 - Exam Quality Assessment: Reports: DVT Prophylaxis General: Reports: Alert, Oriented, Cooperative, No Acute Distress HEENT: Reports: Pupils Equal, Pupils Reactive, Mucous Membr. Moist/Landfall Neck: Reports: Supple, Trachea Midline Lungs: Reports: Clear to Auscultation, Normal Respiratory Effort Cardiovascular: Reports: Regular Rate, Regular Rhythm GI/Abdominal Exam: Normal Bowel Sounds, Soft, Non-Tender, No Distention, No Abnormal Bruit (Female) Exam: Deferred Rectal (Female) Exam: Deferred Back Exam: Reports: Normal Inspection, Full Range of Motion Extremities: No Pedal Edema, Normal Capillary Refill, Arm Pain (left arm and shoulder ), Limited Range of Motion, Other (Sling and swathe in place on left arm) Skin: Reports: Warm, Dry, Intact Neurological: Reports: No New Focal Deficit Psy/Mental Status: Reports: Alert
[2019-10-26] MEDS: Enoxaparin 40 MG/0.4 ML Syringe SUBCUT SCH (10:09)
[2019-10-26 10:11] VITALS: BP 138/75; PULSE 100
[2019-10-26] MEDS ORDERED: Phosphorus #1 250 MG Tab PO SCH (21:00)
[2019-10-26] MEDS ORDERED: Diazepam 5 MG Tab PO SCH (21:00)
[2019-10-26] MEDS ORDERED: Benztropine 1 MG Tab PO SCH (21:00)
[2019-10-27] MEDS ORDERED: Levothyroxine 88 MCG Tab PO SCH (06:00)
== END 2019-10-26 12:15 | DRG 92 ==
LOC: JD.ED 07:35 → SUPCPDRO 07:35 → JD.MS 17:07 → OBSVTOIN 10-25 10:38
PROVIDERS: ADMIT Internal Medicine; ATTEND Internal Medicine
DX: S42.202D Unspecified fracture of upper end of left humerus, subsequent encounter for fracture with routine healing (principal); W19.XXXD Unspecified fall, subsequent encounter; H54.7 Unspecified visual loss; R29.6 Repeated falls; E87.1 Hypo-osmolality and hyponatremia; E87.2 Acidosis; Z87.11 Personal history of peptic ulcer disease; N17.9 Acute kidney failure, unspecified; M62.82 Rhabdomyolysis; S42.202S Unspecified fracture of upper end of left humerus, sequela; F32.9 Major depressive disorder, single episode, unspecified; F60.9 Personality disorder, unspecified; E87.6 Hypokalemia; R94.5 Abnormal results of liver function studies; D72.829 Elevated white blood cell count, unspecified; E86.9 Volume depletion, unspecified; E83.39 Other disorders of phosphorus metabolism; I10 Essential (primary) hypertension; Z91.040 Latex allergy status; G89.29 Other chronic pain; M54.9 Dorsalgia, unspecified; F41.9 Anxiety disorder, unspecified; E03.9 Hypothyroidism, unspecified; E66.9 Obesity, unspecified; D50.9 Iron deficiency anemia, unspecified; Z96.659 Presence of unspecified artificial knee joint; Z86.711 Personal history of pulmonary embolism; Z86.718 Personal history of other venous thrombosis and embolism; Z79.890 Hormone replacement therapy; Z79.899 Other long term (current) drug therapy; Z88.5 Allergy status to narcotic agent; Z88.6 Allergy status to analgesic agent; Z88.8 Allergy status to other drugs, medicaments and biological substances; Z90.49 Acquired absence of other specified parts of digestive tract; Z68.39 Body mass index [BMI] 39.0-39.9, adult
CPT/HCPCS: 36415 ×2; 73200; 80048; 80053; 81001; 82550; 83735 ×2; 84100 ×2; 85025; 85027; 87086; 87088; 87186; 97161; 99285; A9270 ×5; J1650; 96372; 97110-GO; 97110-GP; 97165-GO; 97530-GO; 97530-GP; 97535-GO; 99283; G0378; J3480; J7120

== ENCOUNTER 2021-12-06 13:11 | Emergency (ER) | payer MEDICARE, MEDICAID ==
[2021-12-06 13:30] VITALS: BP 144/88; PULSE 118
[2021-12-06] MEDS ORDERED: FLU Vacc QS2021-22 36MOS UP/PF 60 MCG/0.5 ML Syringe IM ONE (14:00)
== END 2021-12-06 16:05 | disposition home or self-care (01) ==
LOC: JD.ED 13:11
DX: Z23 Encounter for immunization (principal); I10 Essential (primary) hypertension; E03.9 Hypothyroidism, unspecified; E66.9 Obesity, unspecified; Z68.31 Body mass index [BMI] 31.0-31.9, adult; Z88.6 Allergy status to analgesic agent; Z91.048 Other nonmedicinal substance allergy status; Z88.8 Allergy status to other drugs, medicaments and biological substances; Z88.5 Allergy status to narcotic agent; Z91.040 Latex allergy status; Z79.899 Other long term (current) drug therapy
CPT/HCPCS: 90686; 99283; G0008

== ENCOUNTER 2022-02-10 08:44 | Inpatient (IN) | payer MEDICARE, MEDICAID ==
[2022-02-10] MEDS ORDERED: Sodium Chloride 0.9% 10 ML Syringe FLUSH PRN (09:28)
[2022-02-10] MEDS ORDERED: Sodium Chloride 0.9% 1,000 ML IV SCH ×2 (09:30→12:15)
[2022-02-10] MEDS ORDERED: FLU Vacc QS2021-22 36MOS UP/PF 60 MCG/0.5 ML Syringe IM ONE (09:30)
[2022-02-10] MEDS: Enoxaparin 40 MG/0.4 ML Syringe SUBCUT SCH (17:10)
[2022-02-10] MEDS: Hydrocortisone Sodium Succinate 100 MG/2 ML SDV IVPUSH SCH (17:10)
[2022-02-10] MEDS: Cyclobenzaprine 10 MG Tab PO PRN (17:42)
[2022-02-10] MEDS ORDERED: VENLAFAXINE 150 MG PO SCH (21:00)
[2022-02-10] MEDS ORDERED: LOXAPINE SUCCINATE 10 MG PO SCH (21:00)
[2022-02-10] MEDS ORDERED: Phosphorus #1 250 MG Tab PO SCH (21:00)
[2022-02-10] MEDS ORDERED: Benztropine 1 MG Tab PO SCH (21:00)
[2022-02-10] MEDS ORDERED: Oxybutynin 5 MG Tab.ER PO SCH (21:00)
[2022-02-10] MEDS: Venlafaxine 75 MG Cap.ER PO SCH (21:06)
[2022-02-10] MEDS: Cyclobenzaprine 10 MG Tab PO SCH (21:08)
[2022-02-10] MEDS: Propranolol 40 MG Tab PO SCH (21:09)
[2022-02-10] MEDS: atorvaSTATin 20 MG Tab PO SCH (21:15)
[2022-02-10] MEDS: Acyclovir 200 MG Cap PO SCH (21:16)
[2022-02-10] MEDS: Dextrose 5%-0.45% NaCl 1,000 ML IV SCH (21:17)
[2022-02-11] MEDS: Hydrocortisone Sodium Succinate 100 MG/2 ML SDV IVPUSH SCH ×3 (00:22→18:18)
[2022-02-11] MEDS ORDERED: Sodium Chloride 0.9% 1,000 ML IV ONE (00:56)
[2022-02-11] MEDS: Dextrose 5%-0.45% NaCl 1,000 ML IV SCH ×3 (05:51→21:56)
[2022-02-11] MEDS: Levothyroxine 75 MCG Tab PO SCH (05:52)
[2022-02-11] MEDS: Pantoprazole 40 MG Tab.CR PO SCH ×2 (05:56→06:06)
[2022-02-11] MEDS ORDERED: Levothyroxine 88 MCG Tab PO SCH (06:00)
[2022-02-11] MEDS ORDERED: Levothyroxine 75 MCG Tab PO SCH (06:00)
[2022-02-11] MEDS: Enoxaparin 40 MG/0.4 ML Syringe SUBCUT SCH (08:31)
[2022-02-11] MEDS: Ferrous Sulfate 324 MG Tab.EC PO SCH (08:32)
[2022-02-11] MEDS: Multivitamin Tab PO SCH (08:33)
[2022-02-11] MEDS: Propranolol 40 MG Tab PO SCH ×2 (08:34→20:49)
[2022-02-11] MEDS: Acyclovir 200 MG Cap PO SCH ×2 (08:34→20:50)
[2022-02-11] MEDS: MIRABEGRON 50 MG PO SCH (08:36)
[2022-02-11] MEDS: Cyclobenzaprine 10 MG Tab PO SCH ×2 (08:37→20:49)
[2022-02-11] MEDS ORDERED: Rosuvastatin 10 MG Tab PO SCH (09:00)
[2022-02-11] MEDS ORDERED: Potassium Chloride 10 MEQ Tab.ER PO SCH ×2 (09:00)
[2022-02-11] MEDS: Cyclobenzaprine 10 MG Tab PO PRN (14:00)
[2022-02-11] MEDS: atorvaSTATin 20 MG Tab PO SCH (20:49)
[2022-02-11] MEDS: Venlafaxine 75 MG Cap.ER PO SCH (20:51)
[2022-02-12] MEDS: Hydrocortisone Sodium Succinate 100 MG/2 ML SDV IVPUSH SCH ×2 (00:20→08:05)
[2022-02-12] MEDS: Pantoprazole 40 MG Tab.CR PO SCH (06:03)
[2022-02-12] MEDS: Dextrose 5%-0.45% NaCl 1,000 ML IV SCH (06:03)
[2022-02-12] MEDS: Levothyroxine 75 MCG Tab PO SCH (06:03)
[2022-02-12] MEDS: Enoxaparin 40 MG/0.4 ML Syringe SUBCUT SCH (08:04)
[2022-02-12] MEDS: Cyclobenzaprine 10 MG Tab PO SCH (08:05)
[2022-02-12] MEDS: Ferrous Sulfate 324 MG Tab.EC PO SCH (08:05)
[2022-02-12] MEDS: Multivitamin Tab PO SCH (08:06)
[2022-02-12] MEDS: Propranolol 40 MG Tab PO SCH (08:06)
[2022-02-12] MEDS: Acyclovir 200 MG Cap PO SCH (08:06)
[2022-02-12 12:11] VITALS: PULSE 65
[2022-02-12] MEDS: MIRABEGRON 50 MG PO SCH (12:13)
[2022-02-12 12:34] VITALS: BP 130/80
[2022-02-12] MEDS ORDERED: FLU Vacc QS2021-22 36MOS UP/PF 60 MCG/0.5 ML Syringe IM ONE (14:00)
== END 2022-02-12 14:45 | disposition home or self-care (01) | DRG 645 ==
LOC: JD.ED 08:44 → JD.MS 13:47
PROVIDERS: ADMIT Pediatrics; ATTEND Pediatrics
DX: E06.3 Autoimmune thyroiditis (principal); E03.9 Hypothyroidism, unspecified; I95.9 Hypotension, unspecified; I10 Essential (primary) hypertension; N28.9 Disorder of kidney and ureter, unspecified; R94.5 Abnormal results of liver function studies; E87.6 Hypokalemia; D63.8 Anemia in other chronic diseases classified elsewhere; T17.908A Unspecified foreign body in respiratory tract, part unspecified causing other injury, initial encounter; K14.8 Other diseases of tongue; Z20.822 Contact with and (suspected) exposure to COVID-19; S40.812A Abrasion of left upper arm, initial encounter; S40.811A Abrasion of right upper arm, initial encounter; D68.51 Activated protein C resistance; F25.9 Schizoaffective disorder, unspecified; H54.7 Unspecified visual loss; F41.9 Anxiety disorder, unspecified; F32.A Depression, unspecified; E66.9 Obesity, unspecified; R32 Unspecified urinary incontinence; M54.9 Dorsalgia, unspecified; G89.29 Other chronic pain; K59.00 Constipation, unspecified; Z88.6 Allergy status to analgesic agent; D50.9 Iron deficiency anemia, unspecified; Z88.5 Allergy status to narcotic agent; Z91.040 Latex allergy status; Z88.8 Allergy status to other drugs, medicaments and biological substances; Z79.890 Hormone replacement therapy; Z86.718 Personal history of other venous thrombosis and embolism; Z90.49 Acquired absence of other specified parts of digestive tract; Z98.84 Bariatric surgery status; Z91.19 Patient's noncompliance with other medical treatment and regimen; Z23 Encounter for immunization; Z68.32 Body mass index [BMI] 32.0-32.9, adult; Z86.711 Personal history of pulmonary embolism; Z87.11 Personal history of peptic ulcer disease; Z68.51 Body mass index [BMI] pediatric, less than 5th percentile for age; Z91.048 Other nonmedicinal substance allergy status; Z79.899 Other long term (current) drug therapy; W19.XXXA Unspecified fall, initial encounter
CPT/HCPCS: 36415; 80053; 82088; 82533; 84244; 84439; 84443; 85025; 90471; 93005; 99285; J7030 ×2; 90686; A9270-GY; G0008; J1650; J1720; J7042; U0002

== ENCOUNTER 2023-06-22 20:15 | Emergency (ER) | payer MEDICARE, MEDICAID ==
[2023-06-22 21:49] VITALS: BP 159/106; PULSE 80
== END 2023-06-22 23:34 | disposition home or self-care (01) ==
LOC: JD.ED 20:15
DX: S92.402A Displaced unspecified fracture of left great toe, initial encounter for closed fracture (principal); K21.9 Gastro-esophageal reflux disease without esophagitis; E78.00 Pure hypercholesterolemia, unspecified; I10 Essential (primary) hypertension; E03.9 Hypothyroidism, unspecified; Z86.718 Personal history of other venous thrombosis and embolism; Z88.5 Allergy status to narcotic agent; Z88.6 Allergy status to analgesic agent; Z88.8 Allergy status to other drugs, medicaments and biological substances; Z91.040 Latex allergy status; Z91.048 Other nonmedicinal substance allergy status; Z79.899 Other long term (current) drug therapy
CPT/HCPCS: 29515; 73630-26-LT; 73630-LT; 99283

== ENCOUNTER 2024-08-28 05:59 | Emergency (ER) | payer MEDICARE, MEDICAID ==
[2024-08-28] MEDS: HYDROmorphone 0.5 MG/0.5 ML Syringe IVPUSH ONE (06:28)
[2024-08-28] MEDS: HYDROmorphone 1 MG/ML Syringe IVPUSH ONE (08:04)
[2024-08-28] MEDS: Sodium Chloride 0.9% 10 ML Syringe FLUSH PRN (08:06)
[2024-08-28 11:43] VITALS: BP 148/77; PULSE 76
== END 2024-08-28 09:35 | disposition home or self-care (01) ==
LOC: JD.ED 05:59
DX: S52.572A Other intraarticular fracture of lower end of left radius, initial encounter for closed fracture (principal); S52.602A Unspecified fracture of lower end of left ulna, initial encounter for closed fracture; I10 Essential (primary) hypertension; E78.00 Pure hypercholesterolemia, unspecified; K21.9 Gastro-esophageal reflux disease without esophagitis; E03.9 Hypothyroidism, unspecified; Z98.84 Bariatric surgery status; Z90.49 Acquired absence of other specified parts of digestive tract; Z88.6 Allergy status to analgesic agent; Z91.040 Latex allergy status; Z91.048 Other nonmedicinal substance allergy status; Z88.8 Allergy status to other drugs, medicaments and biological substances; Z88.5 Allergy status to narcotic agent; Z79.899 Other long term (current) drug therapy; Z79.890 Hormone replacement therapy; W18.39XA Other fall on same level, initial encounter
CPT/HCPCS: 29125; 73110; 96374; 96376; 99283; J3490; J1171

== ENCOUNTER 2024-08-29 09:56 | Day surgery (SDC) | payer MEDICARE, MEDICAID ==
[2024-08-29] MEDS: Lactated Ringers 1,000 ML IV SCH (09:30)
[2024-08-29] MEDS ORDERED: Sodium Chloride 0.9% 10 ML Syringe FLUSH PRN (10:14)
[2024-08-29] MEDS ORDERED: Ropivacaine 0.5% 5 MG/ML 30 ML SDV ONE (10:20)
[2024-08-29] MEDS ORDERED: Midazolam 1 MG/ML 2 ML SDV ONE (10:20)
[2024-08-29] MEDS ORDERED: HYDROmorphone 0.5 MG/0.5 ML Syringe IVPUSH PRN (11:09)
[2024-08-29] MEDS ORDERED: fentaNYL 100 MCG/2 ML SDV IVPUSH PRN (11:09)
[2024-08-29] MEDS ORDERED: Ondansetron 4 MG/2 ML SDV IVPUSH PRN (11:09)
[2024-08-29] MEDS: Bupivacaine 0.25% 10 ML SDV ONE (11:29)
[2024-08-29] MEDS ORDERED: Propofol 200 MG/20 ML SDV ONE ×4 (11:35→12:32)
[2024-08-29] MEDS ORDERED: Lactated Ringers 1,000 ML IV ONE (11:45)
[2024-08-29] MEDS ORDERED: ceFAZolin 2 GM Vial ONE (12:32)
[2024-08-29] MEDS ORDERED: Esmolol 100 MG/10 ML SDV ONE (12:32)
[2024-08-29 15:37] VITALS: BP 135/72; PULSE 83
[2024-08-29] MEDS ORDERED: Sodium Chloride 0.9% 10 ML Syringe FLUSH SCH (21:00)
== END 2024-08-29 16:06 | disposition home or self-care (01) ==
LOC: JD.SDS 09:56
PROVIDERS: ATTEND Orthopaedic Surgery
DX: S52.502A Unspecified fracture of the lower end of left radius, initial encounter for closed fracture (principal); I10 Essential (primary) hypertension; E78.00 Pure hypercholesterolemia, unspecified; K21.9 Gastro-esophageal reflux disease without esophagitis; F32.A Depression, unspecified; E03.9 Hypothyroidism, unspecified; Z79.890 Hormone replacement therapy; Z79.899 Other long term (current) drug therapy; X58.XXXA Exposure to other specified factors, initial encounter
CPT/HCPCS: 25607; 76000; 87641; C1776; J0665; J0690; J2250; J2704; J2795; J3490; J7120; 01830; 64415; C1713